=== PATIENT | female | born 1950 | race Caucasian/White ===

== ENCOUNTER 2019-10-16 15:58 | Outpatient (CLI) | payer MEDICARE, OTHER, SELFPAY ==
--- NOTE | ~2019-10-16 | MR_ITS ---
EXAMINATION: MR cervical spine wo/w con EXAM DATE: 10/16/2019 17:52 INDICATION: Metastatic renal cell cancer, right-sided neck and back pain. TECHNIQUE: Multi-sequential, multiplanar MR images of the cervical spine were obtained without contra st. Axial T2, axial T2 MERGE sequence. Sagittal T1, T2, T2 fat saturation images also obtained. Axi al T1 weighted sequence. Patient was then injected with 19 mL Multihance intravenous contrast and re imaged. Postcontrast axial and sagittal T1-weighted fat saturation sequences were obtained. There i s no prior study for comparison. FINDINGS: There are no suspicious marrow signal abnormalities. There are no areas of abnormal enhanc ement on the post contrast images. The vertebral bodies are aligned in the AP dimension. There is mod erate disc disease from C3 through C7. The spinal cord signal intensity and intrinsic morphology is n ormal. Cervicomedullary junction is normal in appearance. Paraspinal soft tissue is unremarkable. Level by level evaluation: C2-C3: Disc does not extend beyond the endplate margin. Uncovertebral joint arthropathy: None. Facet joint arthropathy: Moderate right, mild left. Neural foraminal stenosis: No stenosis. Central canal stenosis: No stenosis. C3-C4: There is a minimal diffuse disc bulge. Uncovertebral joint arthropathy: Mild to moderate left, mild right. Facet joint arthropathy: Severe right, moderate left. Neural foraminal stenosis: Mild bilateral. Central canal stenosis: No stenosis. C4-C5: There is a mild diffuse disc bulge. Uncovertebral joint arthropathy: Moderate bilateral. Facet joint arthropathy: Moderate to severe left, moderate right. Neural foraminal stenosis: Moderate left, mild right. Central canal stenosis: Mild. C5-C6: There is a mild diffuse disc bulge. Uncovertebral joint arthropathy: Severe right, moderate left. Facet joint arthropathy: Moderate bilateral. Neural foraminal stenosis: Mild to moderate bilateral. Central canal stenosis: Mild. C6-C7: There is a mild diffuse disc bulge. Uncovertebral joint arthropathy: Mild. Facet joint arthropathy: Mild to moderate. Neural foraminal stenosis: Mild to moderate bilateral. Central canal stenosis: Mild. C7-T1: Disc does not extend beyond the endplate margin. Uncovertebral joint arthropathy: Mild. Facet joint arthropathy: Mild to moderate. Neural foraminal stenosis: No stenosis. Central canal stenosis: No stenosis. IMPRESSION: 1. Moderate cervical spondylosis. 2. No evidence of cervical metastatic disease. Reviewed, dictated and finalized at location B.
--- NOTE | ~2019-10-16 | MR_ITS ---
EXAMINATION: MR thoracic spine wo/w con EXAM DATE: 10/16/2019 18:00 INDICATION: Metastatic renal cell cancer to bone. Right-sided back pain. TECHNIQUE: Multi-sequential, multiplanar MR images of the thoracic spine were obtained without contra st. Sagittal T1, T2, T2 fat saturation, axial T2 weighted images reviewed. Axial T1 weighted sequenc e. Patient was then injected with 19 mL Multihance intravenous contrast and reimaged. Postcontrast axial and sagittal T1-weighted fat saturation sequences were obtained. There are no prior studies for comparison. FINDINGS: Thoracolumbar fusion hardware. There are no suspicious marrow signal abnormalities. The laya tebral bodies are aligned in the AP dimension. Mild diffuse thoracic facet arthropathy and disc disea se. The thoracic central canal and neural foramen are patent. The spinal cord signal intensity and in trinsic morphology is normal. Paraspinal soft tissue is unremarkable. IMPRESSION: 1. No evidence of thoracic spine metastatic disease. 2. Mild spondylosis. Thoracolumbar hardware. Reviewed, dictated and finalized at location B.
[2019-10-16 16:27] LABS: Estimated Glomerular Filt Rate 41
== END 2019-10-16 15:59 | disposition home or self-care (01) ==
LOC: ANHIMG 16:04
PROVIDERS: PCP Family Medicine
DX: C79.51 Secondary malignant neoplasm of bone (principal); C64.9 Malignant neoplasm of unspecified kidney, except renal pelvis; M47.894 Other spondylosis, thoracic region; M47.892 Other spondylosis, cervical region
CPT/HCPCS: 36415; 72156; 72157; A9577

== ENCOUNTER → 2020-02-22 13:08 | Outpatient (CLI) | payer MEDICARE, OTHER, SELFPAY ==
--- NOTE | ~2020-02-22 | MM_ITS ---
EXAMINATION: MM screening [facility] BI w jeronimo HISTORY: Screening TECHNIQUE: Craniocaudal and mediolateral oblique 3-D tomosynthesis images were obtained and synthetic 2-D images were generated. CAD analysis was submitted and interpreted. COMPARISON: Comparison to multiple prior studies sequentially, with oldest reviewed study dated 09/2014. BREAST PARENCHYMAL COMPOSITION: The breasts are heterogeneously dense, which may obscure small masses . FINDINGS: Benign-appearing bilateral breast masses are stable or diminished in size compared with gen or studies. These were previously characterized as cysts by ultrasound. There is no evidence of suspi cious mass, calcification, or architectural distortion to suggest malignancy in either breast. There has been no suspicious interval change. IMPRESSION: 1. No mammographic evidence of malignancy. 2. Recommend routine screening mammography in one year. BI-RADS Category 2: Benign finding(s). Reviewed, dictated and finalized at location A. INE ERECTOR
== END ==
PROVIDERS: PCP Family Medicine; Visit Provider Family Medicine
DX: Z12.31 Encounter for screening mammogram for malignant neoplasm of breast (principal)
CPT/HCPCS: 77063; 77067

== ENCOUNTER 2020-06-19 08:48 | Emergency (ER) | payer MEDICARE, OTHER, SELFPAY ==
--- NOTE | ~2020-06-19 | CT_ITS ---
EXAMINATION: CT thoracic lumbar wo con EXAM DATE: 06/19/2020 09:45 INDICATION: Thoracolumbar pain, metastatic renal cell cancer. TECHNIQUE: Spiral CT thoracolumbar spine was performed without contrast. Axial, coronal and sagittal images of the thoracic spine were reviewed. Axial, coronal and sagittal images of the lumbar spine we re reviewed. The dose-length product (DLP) for this examination was 1995.55 mGy-cm. The exposure was tailored according to patient size (auto mA exposure control), and iterative reconstruction (ASIR) w as used as additional dose reduction technique. Correlation made to prior thoracic MRI examination , CT abdomen pelvis 07/28/2017 FINDINGS: There is a right-sided portacatheter. There is interval development of right upper lobe wed ge-shaped density measuring 4.0 cm, pneumonia versus metastasis. There are right middle lobe nodule m easuring 1.2 cm, right lower lobe nodule measuring 1.3 cm. There are scattered other pulmonary nodule s 5 mm or less. Likely metastatic disease. Scattered lung pneumatoceles. Thoracolumbar fusion T11-L4. L2 corpectomy with interbody device maintaining height, no evidence of subsidence. The posterior ped icular screws appear well seated, no lucency surrounding them. Mildly diffusely heterogeneous bone ma rrow density without cortical erosion or definite focal metastatic lesion identified. No evidence of mediastinal or hilar metastatic lymphadenopathy. Thoracic spine demonstrates mild to moderate diffuse disc disease. The vertebral body heights are jose ntained. No thoracic central canal stenosis. Up to mild to moderate neural foraminal stenosis. There is mild diffuse thoracic facet arthropathy. There are no acute fractures identified. Paraspinal sof t tissue unremarkable. There is small sliding gastroesophageal hiatal hernia. Lumbar spine demonstrates moderate disc disease L3-S1. The lumbar vertebral body heights are maintain ed. No spondylolysis or fracture. Sacroiliac joints are intact. Mild to moderate central canal stenos is L3-4 and L4-5. Moderate bilateral neural foraminal stenosis L5-S1 and on the right at L4-5, less a t the other lumbar levels. No acute lumbar fracture. There is rectosigmoid anastomosis site. There i s a left adrenal gland nodule measuring 1.7 cm, which was not present on CT scan abdomen. This may be metastatic disease. Splenule. IMPRESSION: 1. Right upper lobe 4 cm wedge-shaped pleural-based opacity, pneumonia versus cancer. 2. Interval development of pulmonary nodules and left adrenal nodule, likely metastatic disease. 3. L2 surgical changes including corpectomy, laminectomies, and posterior fusion from T11-L4 intact. 4. Moderate lower lumbar spondylosis, less other regions of thoracolumbar spine. Reviewed, dictated and finalized at location A. DRIVER IMPRESSION: 1. Right upper lobe 4 cm wedge-shaped pleural-based opacity, pneumonia versus cancer. 2. Interval development of pulmonary nodules and left adrenal nodule, likely m etastatic disease. 3. L2 surgical changes including corpectomy, laminectomies, and posterior fusi on from T11-L4 intact. 4. Moderate lower lumbar spondylosis, less other regions of thoracolumbar spin e.
--- NOTE | ~2020-06-19 | CT_ITS ---
EXAMINATION: CT chest abdomen pelvis wo con EXAM DATE: 06/19/2020 11:35 INDICATION: Thoracolumbar spine abnormality, metastatic disease. Renal cell cancer. TECHNIQUE: Spiral CT of the chest, abdomen and pelvis was performed without contrast. Axial, mathis l and sagittal images were reviewed. Coronal maximum intensity pixel images of chest reviewed. The dose-length product (DLP) for this examination was 679.88 mGy-cm. The exposure was tailored accordin g to patient size (auto mA exposure control), and iterative reconstruction (ASIR) was used as additio nal dose reduction technique. Comparison is made to prior examination from abdomen pelvis CT 07/26/2018 . FINDINGS: CHEST: There is a wedge-shaped right upper lobe pleural-based opacity, cancer or pneumonia. Similar appearing but smaller 2.5 cm region in the right middle lobe. There are other pulmonary nodules which are suspicious for metastatic disease. A right lower lobe nodule which was previously imaged measure s 7 mm on 07/26/2018, now measures 12 mm. Several smaller basilar opacities are new compared to that st udy. Small cystic lung lesions with thin ramirez, pneumatoceles. There is mild emphysema. There are no pleural or pericardial effusions. Tracheobronchial tree is patent. There is no mediastinal, hilar or axillary lymphadenopathy. There is no pneumothorax. Heart normal in size. There is mild coron mary arterial calcification, arterial sclerosis. ABDOMEN PELVIS: Development of bulbous masslike opacity in the pancreatic tail measuring about 2.6 cm . Development of left adrenal nodule measuring 1.6 cm. Probably metastatic disease. Can't exclude greenberg creatic primary cancer. The liver and spleen are unremarkable. There are gallstones within an otherwise unremarkable gallbla dder. No evidence of obstructive biliary disease. Status post left nephrectomy. No right-sided neph rolithiasis or hydronephrosis. The uterus is not identified and has likely been surgically resected. The bladder is unremarkable. There is no retroperitoneal or pelvic lymphadenopathy. There is ante rior abdominal wall mesh. Possible identification of an unremarkable appendix. No pericecal inflammation. There is mild scatter ed colonic diverticulosis. There is no adjacent inflammatory change to suggest diverticulitis. Ther e is small sliding gastroesophageal hiatal hernia. There is expected amount of colonic stool. No f ree intraperitoneal gas. Mild diffusely heterogeneous bone marrow density without focal cortical dest ruction. Thoracolumbar fusion, L2 corpectomy and laminectomies as detailed on CT performed prior to t his one. IMPRESSION: 1. Basilar pulmonary nodules suspicious for metastatic disease. 2. Larger right middle lobe, right upper lobe opacities, could be infection or metastatic. 3. Mild emphysema. 4. Development of left adrenal nodule likely metastatic. 5. Development of masslike pancreatic tail region, metastatic versus primary pancreatic cancer. 6. Cholelithiasis. 7. Small hiatal hernia. 8. Scattered colonic diverticulosis. 9. Surgical changes including left nephrectomy, L2 corpectomy, thoracolumbar fusion, anterior abdomi nal wall mesh, sigmoid resection. Reviewed, dictated and finalized at location A. RITY ALARM TECHNICIAN IMPRESSION: 1. Basilar pulmonary nodules suspicious for metastatic disease. 2. Larger right middle lobe, right upper lobe opacities, could be infection or metastatic. 3. Mild emphysema. 4. Development of left adrenal nodule likely metastatic. 5. Development of masslike pancreatic tail region, metastatic versus primary p ancreatic cancer. 6. Cholelithiasis. 7. Small hiatal hernia. 8. Scattered colonic diverticulosis. 9. Surgical changes including left nephrectomy, L2
[2020-06-19 08:49] VITALS: BP 130/78; PULSE 110; RESP 16; TEMP 36.3; O2SAT 100
--- NOTE | 2020-06-19 09:35 | PC.NURSE ---
Pt to CT scan via stretcher.
[2020-06-19] MEDS: SODIUM CHLORIDE 0.9% IV 500 ML 999 ML IV CONT (10:02)
[2020-06-19 10:16] LABS: Basophils Absolute Auto 0.1 K/mm3 (0.0-0.1); Basophils Percent Auto 0.7 % (0.2-1.2); Eosinophils Percent Auto 0.2 % (0-4.4); Hemoglobin 11.2 g/dL (12.0-15.0); Lymphocytes Absolute Auto 1.31 K/mm3 (0.9-3.2); Lymphocytes Percent Auto 10.2 % (18.3-44.2); Mean Corpuscular HGB Conc 36.1 g/dl (32-36); Mean Corpuscular Volume 99.7 fl (80-100); Mean Platelet Volume 8.9 fl (7.4-10.4); Monocytes Absolute Auto 0.6 K/mm3 (0.1-0.6); Monocytes Percent Auto 4.7 % (2.6-8.5); Neutrophils Percent Auto 77.2 % (45.5-73.1); Nucleated Red Blood Cells Perc 0.3 % (0.0-0.2); Platelet Count Result 131 k/mm3 (150-375); Red Blood Count 3.11 M/mm3 (4.2-5.4); Red Cell Distribution Width 18.9 % (11.5-14.5); White Blood Count 12.9 K/mm3 (4.5-10.0)
[2020-06-19 10:19] LABS: Add Urine Microscopic? YES; Appearance Urine Clear (Clear); Bilirubin Urine Negative (Negative); Blood Urine Negative (Negative); Color Urine Yellow (Yellow); Glucose Urine UA Negative (Negative); Ketones Urine Trace mg/dL (Negative); Leukocyte Esterase Ur Negative LEU/UL (Negative); Nitrate Urine Negative (Negative); Protein Urine Negative (Negative); RBC Urine 0-2 /hpf (0-2); Specific Grav Ur 1.018 (1.001-1.035); Squamous Epithelial Cell Urine Rare /hpf (Few); WBC Urine 0-3 /hpf
[2020-06-19 10:27] LABS: Alanine Aminotransferase 24 U/L (4-35); Albumin Level 3.5 g/dL (3.5-5.1); Alkaline Phosphatase 72 U/L (38-126); Anion Gap 5 mmol/L (8-16); Aspartate Amino Transferase 25 U/L (14-36); Bilirubin,Total 2.2 mg/dL (0.2-1.3); Blood Urea Nitrogen 28 mg/dL (7-17); Calcium 9.2 mg/dL (8.4-10.2); Carbon Dioxide 30 mmol/L (22-30); Chloride 98 mmol/L (98-107); Estimated CRCL calculation 43 ml/min; Estimated Glomerular Filt Rate 45; Glucose 123 mg/dL (65-105); Potassium 3.1 mmol/L (3.4-5.0); Sodium 133 mmol/L (137-145)
[2020-06-19 10:56] LABS: Lipase 101 U/L (23-300)
[2020-06-19 11:30] VITALS: BP 110/55; PULSE 99; RESP 20; TEMP 36.3; O2SAT 96
--- NOTE | 2020-06-19 11:42 | ED.GENADULT ---
HPI - General Adult General Chief complaint: Back Pain/Injury Stated complaint: back pain Time Seen by Provider: 06/19/20 09:10 Source: patient, family and old records reviewed Mode of arrival: ambulatory Limitations: no limitations History of Present Illness HPI narrative: Patient is a 70-year-old female who presents for evaluation of low back pain radiating down the right leg with numbness in the right extremity patient denies injury or trauma patient notes she has been having spasming in the back as well patient notes history of metastatic cancer and is followed [facility] by Dr. BLAS. Patient's primary was kidney in nature. Patient denies any vomiting diarrhea patient denies other injury or trauma or illness. Patient has been unable to take her chemotherapy of late secondary to toleration. Patient has been taking oral narcotic with some relief. Patient denies any loss of function in the extremity Related Data Home Medications Medication Instructions Recorded Confirmed Bifidobacterium infantis 4 mg 4 mg PO DAILY 04/28/19 capsule ascorbic acid (vitamin C) 500 mg 500 mg PO DAILY 04/28/19 tablet levothyroxine 100 mcg tablet 125 mcg PO DAILY tablet 04/28/19 xbqycayo-qdg-uweiv ac 400 tablet PO 04/28/19 mcg-calcium carb 500 mg-vit K1 20 mcg tablet prochlorperazine maleate 10 mg 10 mg PO .COMPLEX PRN tablet 04/28/19 tablet tramadol 50 mg tablet 50 mg PO Q6H PRN 04/28/19 Allergies Allergy/AdvReac Type Severity Reaction Status Date / Time codeine Allergy Unknown N/V Verified 06/19/20 08:55 erythromycin base Allergy Unknown N/V, RASH Verified 06/19/20 08:55 Sulfa (Sulfonamide Allergy Unknown Unknown Verified 06/19/20 08:55 Antibiotics) codeine Allergy Unknown Unknown Uncoded 06/14/19 09:59 erythromycin base Allergy Unknown Unknown Uncoded 06/14/19 09:59 Sulfa (Sulfonamide Allergy Unknown Unknown Uncoded 06/14/19 09:59 Antibiotics) Review of Systems Review of Systems: All systems reviewed & are unremarkable except as noted in HPI and below PMFSH Past Medical History Medical History Depression H/O deep venous thrombosis Post-menopause Family History Family History (Updated 05/31/18 @ 07:40 by DOCTOR UNKNOWN) Father Family history of chronic obstructive pulmonary disease Family history of emphysema Sibling Patient's brother is in good health Mother Family history of malignant neoplasm of breast in first degree relative Other Family history of cardiovascular disease Social History Social History Smoking status: Never smoker Second hand tobacco smoke exposure: No Alcohol intake: never Substance use: never Substance use type: does not use Gender identity (if verbalized by the patient): Female Exam Narrative: Exam Narrative: GENERAL: Well-appearing, obese, and in no acute distress. HEAD: Normocephalic, atraumatic. EYES: PERRLA and EOMI. ENT: Nares clear, no rhinorrhea or epistaxis. Mucous membranes moist. CHEST: Clear to auscultation. No respiratory distress. No wheezes rales or rhonchi HEART: Regular rate and rhythm. No murmur heard. Normal peripheral pulses. ABDOMEN: Soft, nontender, nondistended EXTREMITIES: Normal range of motion. No edema. Midthoracic back pain SKIN: Warm, dry, no rash. NEURO: No focal deficits. Alert and oriented x3. Cranial nerves II through XII grossly intact. Motor and sensory intact and symmetrical in the extremities. PSYCH: Normal mood and affect. Course Course Emergency Course: Patient evaluated in the emergency department for her back pain findings were discussed with her oncologist who feels the patient can be managed with medications and the patient can follow with plan visit in 2 weeks. No further recommendations at this time. ABCs and vital signs intact and stable. Patient and her agree with
[2020-06-19 13:02] VITALS: BP 100/54; PULSE 101; RESP 22; TEMP 36.6; O2SAT 95
[2020-06-19] MEDS: LIDOCAINE 5% PATCH 1 PATCH TRANSDERM (13:39)
[2020-06-19 14:17] VITALS: BP 114/57; PULSE 99; RESP 18; TEMP 36.7; O2SAT 98
== END 2020-06-19 14:17 | disposition home or self-care (01) ==
PROVIDERS: Emergency Medicine Emergency Medical Services; Emergency Provider Emergency Medicine; PCP Family Medicine
DX: M54.5 Low back pain (principal); C64.2 Malignant neoplasm of left kidney, except renal pelvis; R91.8 Other nonspecific abnormal finding of lung field; M47.816 Spondylosis without myelopathy or radiculopathy, lumbar region; E27.9 Disorder of adrenal gland, unspecified; J43.9 Emphysema, unspecified; K80.20 Calculus of gallbladder without cholecystitis without obstruction; K44.9 Diaphragmatic hernia without obstruction or gangrene; K57.90 Diverticulosis of intestine, part unspecified, without perforation or abscess without bleeding; Z90.5 Acquired absence of kidney; Z90.49 Acquired absence of other specified parts of digestive tract; Z98.1 Arthrodesis status; K86.9 Disease of pancreas, unspecified
CPT/HCPCS: 36415; 51701; 71250; 72128; 72131; 74176; 80053; 81001; 83690; 85025; 96365; 99284; A9270; J0131; J7040

== ENCOUNTER 2020-10-25 10:30 | Inpatient (IN) | payer MEDICARE, OTHER, SELFPAY ==
[2020-10-25] VITALS (15 sets, daily range): BP systolic 68–162; BP diastolic 34–113; PULSE 96–104; RESP 20–27; TEMP 36.9–38.3; O2SAT 90–100; BMI 42.6
--- NOTE | ~2020-10-25 | US_ITS ---
EXAMINATION: US renal BI DATE: 10/25/2020 16:50 INDICATION: Decreased kidney function. TECHNIQUE: Multiple ultrasound grayscale images of the kidneys were obtained. COMPARISON: CT 06/19/2020 FINDINGS: The right kidney measures 13.8 x 6.8 x 5.7 cm. The left kidney is absent The right kidney demonstrate s normal parenchymal echogenicity. There is no hydronephrosis. The bladder is normal. IMPRESSION: 1. Normal right kidney. Absent left kidney. Reviewed, dictated and finalized at location A.
--- NOTE | ~2020-10-25 | XR_ITS ---
XR chest 1V portable DATE: 10/31/2020 05:50 INDICATION: Respiratory distress, increased oxygen requirements TECHNIQUE: Portable AP chest on 10/31/2020 at 0516 hours COMPARISON: 07/26 portable AP chest at 1104 hours FINDINGS: There is interval pulmonary vascular congestion and redistribution and Kellen B-lines and b ilateral pulmonary infiltrates predominating in the central and lower lung zones, suggesting congesti ve changes and pulmonary edema 07/26/2018. Right internal jugular Port-A-Cath catheter tip is situated over the upper right atrium. No pleural effusion or pneumothorax is evident. Pedicle screws and rods are noted at T11 extending in the lumbar area. IMPRESSION: Congestive changes and bilateral infiltrates suggesting pulmonary edema Reviewed, dictated and finalized at location A. IMPRESSION: Congestive changes and bilateral infiltrates suggesting pulmonary e rodrigo
--- NOTE | ~2020-10-25 | XR_ITS ---
EXAMINATION: XR lumbar spine 2-3V DATE: 10/27/2020 11:35 INDICATION: Low back pain. TECHNIQUE: 3 views of lumbar spine were obtained. COMPARISON: CT abdomen and pelvis 06/19/2020 FINDINGS: There is 5 degrees dextrocurvature of lumbar spine. There are changes of L2 corpectomy with interbody device. There are changes of posterior fusion procedure from T11 to L4 with pedicle screws . Vertebral body heights are normal. There is moderately decreased disc height at L3-L4 and severely decreased disc height at L4-L5 and L5-S1. There are surgical clips from ventral hernia repair. There is a left hip bipolar hemiarthroplasty. IMPRESSION: 1. Severe lumbar spondylosis. 2. L2 corpectomy with interbody device. 3. Posterior fusion procedure from T11 to L4. Reviewed, dictated and finalized at location A.
--- NOTE | ~2020-10-25 | US_ITS ---
EXAMINATION: US venous doppler LE EXAM DATE: 10/25/2020 16:48 INDICATION: bilateral lower extremity swelling. TECHNIQUE: Multiple grayscale, color flow and Doppler images of the lower extremity deep venous syste ms bilaterally were obtained and reviewed. Comparison is made to prior examination from 01/13/2018. FINDINGS: Right side: The right common femoral, femoral and profunda veins demonstrate normal color flow, respi ratory variation, augmentation and compressibility. Compressibility, color flow confirmed within the right popliteal, posterior tibial, peroneal, and greater saphenous veins. Resolution of previously seen posterior tibial DVT. Left side: The left common femoral, femoral and profunda veins demonstrate normal color flow, respira tory variation, augmentation and compressibility. Compressibility, color flow confirmed within the l eft popliteal, posterior tibial, peroneal, and greater saphenous veins. IMPRESSION: 1. No lower extremity deep venous thrombosis bilaterally. Reviewed, dictated and finalized at location B.
--- NOTE | ~2020-10-25 | CT_ITS ---
EXAMINATION: CT brain wo con DATE: 10/25/2020 12:25 INDICATION: Confusion, trembling. Altered mental state. Weakness. TECHNIQUE: Computed tomography (CT) of the head was performed without intravenous contrast. The mA wa s adjusted according to patient size. Iterative reconstruction technique was employed. Exam dose: 60 5.33 mGy-cm total exam DLP. COMPARISON: 07/27/2018 CT head FINDINGS: Examination is limited by motion artifact. Intracranial cerebral atherosclerosis is noted. There is nonspecific diminished attenuation of the ce rebral white matter, likely due to chronic small vessel ischemic changes. No intracranial mass lesion or hemorrhage or cerebrovascular accident is evident. No midline shift or mass effect. No subdural or epidural hematoma. No fracture or bone destruction of the cranial vault. Included paranasal sinuses are unremarkable. Left mastoid air cells are normally developed and aerate d. There is limited development and aeration of the right mastoid air cells. IMPRESSION: Cerebral atherosclerosis and chronic small vessel ischemic changes of cerebral white mat ter No acute intracranial finding Reviewed, dictated and finalized at Location A. Reviewed, dictated and finalized at location A. IMPRESSION: Cerebral atherosclerosis and chronic small vessel ischemic changes of cerebral white matter No acute intracranial finding
--- NOTE | ~2020-10-25 | XR_ITS ---
EXAMINATION: XR hip LT min 2V DATE: 10/27/2020 11:34 INDICATION: Left hip injury. TECHNIQUE: 2 views of left hip were obtained. COMPARISON: None. FINDINGS: There is a bipolar left hip hemiarthroplasty in near-anatomic alignment. No fracture. There is mild left hip osteoarthritis. IMPRESSION: 1. Bipolar left hip hemiarthroplasty in near-anatomic alignment. Reviewed, dictated and finalized at location A.
--- NOTE | 2020-10-25 10:40 | ECG_ITS ---
Measurements Intervals [place] Rate: 96 P: 54 [place]: 183 QRS: -9 QRSD: 108 T: 53 QT: 385 QTc: 486 Interpretive Statements SINUS RHYTHM INCOMPLETE RIGHT BUNDLE BRANCH BLOCK DELAYED PRECORDIAL R/S TRANSITION LOW QRS VOLTAGE IN PRECORDIAL LEADS BORDERLINE ST-T WAVE ABNORMALITY- DIFFUSE LEADS BASELINE ARTIFACT- I, II, AVR, AVF, V4 BORDERLINE ECG Electronically Signed On 10-25-2020 11:27:48 CDT by Noah Shelley D.O.
[2020-10-25 11:29] LABS: Basophils Absolute Auto 0.1 K/mm3 (0.0-0.1); Eosinophils Absolute Auto 0.7 K/mm3 (0-0.3); Eosinophils Percent Auto 7.5 % (0-4.4); Hematocrit 26.1 % (37.0-47.0); Hemoglobin 8.8 g/dL (12.0-15.0); Immature Granulocyte Absolute 0.35 K/mm3 (0.00-0.031); Lymphocytes Absolute Auto 1.19 K/mm3 (0.9-3.2); Lymphocytes Percent Auto 13.5 % (18.3-44.2); Mean Corpuscular HGB Conc 33.7 g/dl (32-36); Mean Corpuscular Hemoglobin 30.3 pg (26-34); Mean Platelet Volume 9.2 fl (7.4-10.4); Monocytes Absolute Auto 0.9 K/mm3 (0.1-0.6); Monocytes Percent Auto 10.3 % (2.6-8.5); Neutrophils Absolute Auto 5.6 K/mm3 (1.3-6.7); Neutrophils Percent Auto 63.7 % (45.5-73.1); Platelet Count Result 353 k/mm3 (150-375); White Blood Count 8.8 K/mm3 (4.5-10.0)
[2020-10-25 11:34] LABS: INR 1.9; Prothrombin Time 21.3 Seconds (11.1-14.7)
[2020-10-25 11:48] LABS: Alanine Aminotransferase 15 U/L (4-35); Albumin Level 2.8 g/dL (3.5-5.1); Alkaline Phosphatase 132 U/L (38-126); Anion Gap 12 mmol/L (8-16); Aspartate Amino Transferase 65 U/L (14-36); Bilirubin,Total 1.5 mg/dL (0.2-1.3); Blood Urea Nitrogen 17 mg/dL (7-17); Calcium 7.5 mg/dL (8.4-10.2); Carbon Dioxide 24 mmol/L (22-30); Chloride 73 mmol/L (98-107); Estimated CRCL calculation 22 ml/min; Estimated Glomerular Filt Rate 19; Glucose 107 mg/dL (65-105); Potassium 2.4 mmol/L (3.4-5.0); Sodium 109 mmol/L (137-145)
[2020-10-25 12:44] LABS: Add Urine Microscopic? YES; Appearance Urine Cloudy (Clear); Bilirubin Urine Negative (Negative); Blood Urine 3+ (Negative); Color Urine Amber (Yellow); Glucose Urine UA Negative (Negative); Ketones Urine Negative (Negative); Leukocyte Esterase Ur 3+ LEU/UL (Negative); Mucus Urine Rare /lpf; Nitrate Urine Negative (Negative); Protein Urine 1+ mg/dL (Negative); RBC Urine >75 /hpf (0-2); Specific Grav Ur 1.017 (1.001-1.035); WBC Urine >75 /hpf
[2020-10-25] MEDS: SODIUM CHLORIDE 0.9% IV 1,000 ML 999 ML IV CONT (12:51)
--- NOTE | 2020-10-25 13:10 | ED.WEAKNESS ---
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 Reports she woke up today and is profoundly weak and cannot get herself to stand up. Patient recently underwent left hip replacement at [facility] due to having a tumor in this location. There is concern of a fracture and she had hip replacement. Patient sees Dr. Marshall for her cancer care. She recently failed therapy with pazopanib, and she was recently started on tivozanib yesterday. She also receives Xgeva for her skeletal metastases. Related Data Home Medications Medication Instructions Recorded Confirmed levothyroxine 100 mcg tablet 137 mcg PO DAILY tablet 04/28/19 10/25/20 acetaminophen 650 mg PO Q6H PRN 10/25/20 10/25/20 albuterol sulfate [ProAir HFA] 1 puff INHALATION Q6H PRN 10/25/20 10/25/20 apixaban [Eliquis] 2.5 mg PO BID 10/25/20 10/25/20 bisacodyl 10 mg RECTAL DAILY PRN 10/25/20 10/25/20 bupropion HCl 75 mg PO BID 10/25/20 10/25/20 chlorthalidone 25 mg PO DAILY 10/25/20 10/25/20 cholecalciferol (vitamin D3) 125 mcg PO DAILY 10/25/20 10/25/20 gabapentin 600 mg PO HS 10/25/20 10/25/20 hydroxyzine HCl 50 mg PO TID PRN 10/25/20 10/25/20 methocarbamol 750 mg PO TID 10/25/20 10/25/20 pantoprazole 40 mg PO QAM 10/25/20 10/25/20 potassium chloride 20 meq PO BID 10/25/20 10/25/20 sodium phosphates [Fleet Enema] 118 ml RECTAL ONCE 10/25/20 10/25/20 tramadol 25 mg PO Q6H PRN 10/25/20 10/25/20 Allergies Allergy/AdvReac Type Severity Reaction Status Date / Time codeine Allergy Unknown N/V Verified 10/25/20 13:23 erythromycin base Allergy Unknown N/V, RASH Verified 10/25/20 13:23 Sulfa (Sulfonamide Allergy Unknown Unknown Verified 10/25/20 13:23 Antibiotics) codeine Allergy Unknown Unknown Uncoded 10/25/20 13:23 erythromycin base Allergy Unknown Unknown Uncoded 10/25/20 13:23 Sulfa (Sulfonamide Allergy Unknown Unknown Uncoded 10/25/20 13:23 Antibiotics) Review of Systems Review of Systems: All systems reviewed & are unremarkable except as noted in HPI and below Constitutional: Constitutional: Denies chills, Reports fatigue, Denies fever(s) and Reports weakness ENT: Denies nasal congestion and Denies sore throat Cardiovascular: Cardiovascular: Denies chest pain, Denies rapid heart rate and Denies radiating jaw, neck or arm pain Respiratory: Respiratory: Denies cough and Denies dyspnea Gastrointestinal: Gastrointestinal: Denies abdominal pain, Denies diarrhea, Denies nausea and Denies vomiting Genitourinary: Genitourinary: Denies nocturia, Denies dysuria and Denies flank pain Musculoskeletal: Musculoskeletal: Denies joint swelling Comments: Lower extremity edema Integumentary/Breasts: Comments: Healing wound left hip with reported secondary infection [facility] Past Medical History Medical History (Updated 10/25/20 @ 15:03 by Nichelle Hennessy MD) Acute kidney failure, unspecified Anemia Depression H/O deep venous thrombosis Hyponatremia Metastatic renal cell carcinoma Post-menopause Pyuria Surgical History Surgical History (Updated 10/25/20 @ 18:44 by Kolby Butterfield MD) History of left hip replacement Family History Family History Father Family history of chronic obstructive pulmonary disease Family history of emphysema Sibling Patient's brother is in good health Mother Family history of malignant neoplasm of breast in first degree relative Other Family history of cardiovascular disease Social History Social History Smoking status: Never smoker Second hand tobacco smoke exposure: No Alcohol intake: never Substance use: never Substance use type: does not use G
--- NOTE | 2020-10-25 13:22 | PC.NURSE ---
Nurse at [facility] called and updated on patients admission status.
--- NOTE | 2020-10-25 13:32 | PC.NURSE ---
Attempted to call Osteen x3 to update nurse on patient status but was unable to get ahold of her.
--- NOTE | 2020-10-25 13:49 | PM.CNNEP ---
Assessment and Plan Assessment and plan (1) Hyponatremia: Code(s): E87.1 - Hypo-osmolality and hyponatremia Status: Acute Assessment and Plan: the patient has hyponatremia. I do not think this is acute. Etiology is probably multifactorial. she has cancer She has been on Zoloft. She is on chlorthalidone she has not been eating food. She has been getting tramadol. There are other causes as well such as pulmonary disease brain disease hypothyroidism and adrenal insufficiency. The head CT is negative. It sounds like this has been building up over the last few days. She does have significant symptoms from this with her change in cognition and asterixis. I believe she should get some hypertonic saline. However she has received 2-3 L of isotonic saline since she was admitted. So will check another sodium stat. I talked with the ICU nurse to do this is soon she gets up to the floor. If the sodium has not changed we will use hypertonic saline. If the sodium has climbed by more than 4 then I will hold off on hypertonic but then continue isotonic saline at a lower rate. We will follow the sodium levels closely so that she does not have an over-correction. Because she was on chlorthalidone and Zoloft and we will be stopping these and also because she is getting IV fluid it is not predictable how quickly her sodium is going to correct. So will follow this level closely. I asked nursing to call me as soon as the sodium level comes back. (2) Hypokalemia: Code(s): E87.6 - Hypokalemia Status: Acute Assessment and Plan: She received potassium chloride in the ER. (3) Acute kidney failure, unspecified: Code(s): N17.9 - Acute kidney failure, unspecified Status: Acute Assessment and Plan: Her creatinine baseline is 1.2. Now it is up to 2.5. I suspect she is dehydrated. Will check urine electrolytes and eosinophils. (4) Pyuria: Code(s): R82.81 - Pyuria Status: Acute Assessment and Plan: She has pyuria. Will check urine culture. She is afebrile and her white count is okay. She has no dysuria. (5) Metastatic renal cell carcinoma: Code(s): C64.9 - Malignant neoplasm of unspecified kidney, except renal pelvis Status: Acute Assessment and Plan: Dr. Garcia follows this as an outpatient (6) Essential hypertension: Code(s): I10 - Essential (primary) hypertension Status: Acute (7) Depression: Code(s): F32.9 - Major depressive disorder, single episode, unspecified Status: Acute (8) PAF (paroxysmal atrial fibrillation): Code(s): I48.0 - Paroxysmal atrial fibrillation Status: Acute (9) Hemolytic anemia: Code(s): D58.9 - Hereditary hemolytic anemia, unspecified Status: Acute History of Present Illness Reason for Consult Consult date: 10/25/20 Chief Complaint Chief complaint: hyponatremia/hypokalemial/theo/uti History of Present Illness Narrative: Yaneth is an unfortunate 70-year-old lady who has multiple problems including renal cell carcinoma with metastases, depression, spinal surgery in the past, recent bipolar hip replacement on the left to treat a pathological fracture, depression, swelling, GERD, DVT in the past, sleep apnea, intermittent asthma, mild cognitive degeneration, paroxysmal atrial fibrillation. Patient recently had a pathological fracture of the left hip. She was taken to [facility] and had a bipolar hip replacement done so that she could maintain her weight-bearing status. She was discharged from the hospital To rehab for strengthening. She says that in the last couple weeks she has had progressive swelling and weakness. She has some trouble with cognition as well the said is worse than usual. She has not been eating or drinking very well. Her thinks she has not been drinking much fluid at all. however he
--- NOTE | 2020-10-25 14:15 | PC.NURSE ---
Pt taken to ICU with KCL and NS infusing
--- NOTE | 2020-10-25 14:30 | PM.IMHP ---
H&P: HPI History of Present Illness Date/Time: 10/25/20 14:00 Chief Complaint: Generalized weakness. 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 she remains confused at the time my evaluation is not able to provide a very good history. From what I can gather she recently had a left hip replacement at [facility] due to pathological fracture and she has been at a local rehab facility since. According to her she is just not been herself for the last month since her surgery with increasing weakness and periods of confusion. Today she was so weak that she could not even stand up on her own and she apparently fell down to her knees though did not injure herself. She was found to have an acute kidney injury with multiple electrolyte abnormalities including profound hyponatremia and hypokalemia as well as pyuria. She has since been admitted to the ICU and is receiving 3% saline at the time my evaluation. She is somnolent but will wake to name. She remains confused but is alert and oriented x2. She has no specific complaints currently and specifically denies headache, blurry vision, focal weakness, chest pain, shortness of breath, nausea, vomiting, diarrhea, and dysuria. Review of Systems Review of Systems: Narrative: 12 systems were reviewed but are limited as she is somewhat confused. She stated no to all questions asked for her with pertinent negatives as per HPI. [facility] Past Medical History Medical History (Updated 10/26/20 @ 00:19 by Yvonne Brewer PA-C) Anemia Deep venous thrombosis Depression Diverticulitis History perforated diverticulitis status post colectomy with colostomy and subsequent takedown. Hypothyroidism Metastatic renal cell carcinoma Clear cell renal cell carcinoma status post left radical nephrectomy in 2016. She is a patient of Dr. Johan Marshall and has recently been started on a new medication due to progression of disease on CT as of summer 2020. Mild dementia With short-term memory loss. Osteoarthritis Paroxysmal atrial fibrillation Single seizure In childhood. Surgical History Surgical History (Updated 10/26/20 @ 00:12 by Yvonne Brewer PA-C) History of hysterectomy for benign disease History of incisional hernia repair History of left hip replacement (~09/2020) History of left nephrectomy (~2015) History of partial colectomy Sigmoid colectomy with colostomy and subsequent takedown for perforated diverticulum. Family History Family History Father Family history of chronic obstructive pulmonary disease Family history of emphysema Sibling Patient's brother is in good health Mother Family history of malignant neoplasm of breast in first degree relative Other Family history of cardiovascular disease Social History Social History (Updated 10/26/20 @ 00:13 by Yvonne Brewer PA-C) Social History: Surrogate decision maker: Buster Osborne, . Code status: Full code. Smoking status: Never smoker Second hand tobacco smoke exposure: No Alcohol intake: never Substance use: never Substance use type: does not use Additional living arrangements comments: The patient lives with her in [place]. Additional occupation/education comments: Retired. Meds Home Medications and Allergies Home Medications Medication Instructions Recorded Confirmed Type levothyroxine 100 mcg tablet 137 mcg PO DAILY tablet 04/28/19 10/25/20 History fluti
--- NOTE | 2020-10-25 14:42 | WPDCNINT ---
Assessment and Plan Assessment and plan (1) Hyponatremia: Code(s): E87.1 - Hypo-osmolality and hyponatremia Status: Acute Assessment and Plan: severe acute hyponatremia which could be the cause of generalized weakness along with altered mental status. Multifactorial could be medications, decreased p.o. intake, underlying malignancy - patient was given 2-3 L of IV fluids - initial sodium level was 109, will repeat sodium levels now after the IV fluids - may require 3% saline - appreciate Nephrology evaluation recommendation - monitor serial sodium levels (2) Hypokalemia: Code(s): E87.6 - Hypokalemia Status: Acute Assessment and Plan: acute hyperkalemia - repleted in the ER, continue to follow potassium level and replace as needed (3) Acute kidney failure, unspecified: Code(s): N17.9 - Acute kidney failure, unspecified Status: Acute Assessment and Plan: acute kidney injury could be multifactorial hypotension, medication/chemotherapy related, decreased p.o. intake, UTI/infection/sepsis - patient received 2-3 L IV fluid bolus - will monitor urine output, renal function and electrolytes - will try and maintain mean arterial pressures greater than 65-70 per mmHg for adequate end organ perfusion (4) Pyuria: Code(s): R82.81 - Pyuria Status: Acute Assessment and Plan: urinalysis reflective of a UTI given pyuria - on ceftriaxone - cultures have been obtained (5) Metastatic renal cell carcinoma: Code(s): C64.9 - Malignant neoplasm of unspecified kidney, except renal pelvis Status: Acute Assessment and Plan: patient follows with , will consult (6) Cellulitis: Code(s): L03.90 - Cellulitis, unspecified Status: Acute Assessment and Plan: possible left lower extremity cellulitis - continue ceftriaxone and vancomycin (7) Anemia: Code(s): D64.9 - Anemia, unspecified Status: Acute Assessment and Plan: hemoglobin 8.8, - patient has history of anemia of chronic disease - hemoglobin is stable level (8) CKD (chronic kidney disease), stage III: Code(s): N18.3 - Chronic kidney disease, stage 3 (moderate) Status: Acute Assessment and Plan: patient has a history of chronic kidney disease stage 3 - continue to monitor urine output, electrolytes and renal function (9) PAF (paroxysmal atrial fibrillation): Code(s): I48.0 - Paroxysmal atrial fibrillation Status: Acute Assessment and Plan: history of proximal AFib, on Eliquis at home (10) DVT prophylaxis: Code(s): Z29.9 - Encounter for prophylactic measures, unspecified Status: Acute Assessment and Plan: heparin subcu Additional Plan discussed with patient in detail and explained to her condition and plan of care. I answered all questions. Patient stated she wants to get better and go home code status: Full code Critical care time spent: 46 minutes This dictation may have been done utilizing a voice recognition system. Attempts have been made to correct errors. However, there may be uncorrected grammatical, spelling, and recognition errors present. Due to a high probability of clinically significant, life threatening deterioration, the patient required my highest level of preparedness to intervene emergently and I personally spent this critical care time directly and personally managing the patient. This critical care time included obtaining a history; examining the patient; pulse oximetry; ordering and review of studies; arranging urgent treatment with development of a management plan; evaluation of patient's response to treatment; frequent reassessment; and discussions with other providers. It was exclusive of separately billable procedures and treating other patients and teaching time. Please see Assessment and Plan section and the rest of the note for further information
[2020-10-25 14:59] LABS: Creatine Kinase 576 U/L (30-135)
[2020-10-25 15:09] LABS: Sodium 110 mmol/L (137-145)
--- NOTE | 2020-10-25 15:23 | ADMGEN ---
This patient, Yaneth Osborne, was admitted to Intensive Care Unit-3. Patient/family oriented to hospital policies and general routines including ID bracelet, bed and alarms, visiting hours, pain management, procedures, bathroom and other care routines, personal items, smoking policy, room service/diet, and visiting hours. Information on how to activate the Rapid Response Team has been discussed. Patient/Family are encouraged to report perceived risks to care and to ask questions if they do not understand what they are told or what they should do.
[2020-10-25 15:27] LABS: Cortisol Random 1.95 ug/dL
[2020-10-25] MEDS: SODIUM CHLORIDE 3% 500 ML 110 ML IV CONT (16:12)
[2020-10-25] MEDS: CENTRAL LINE FLUSH 10 ML IV PUSH ×2 (16:17→20:12)
[2020-10-25] MEDS: HEPARIN SODIUM 5,000 UNITS/ML VIAL 5000 UNITS SUB-Q (20:13)
[2020-10-25 20:24] LABS: Lactic Acid Reflex 2.1 mmol/L (0.7-2.1)
[2020-10-25 20:37] LABS: Sodium 112 mmol/L (137-145)
[2020-10-25] MEDS: ACETAMINOPHEN 325 MG TABLET 650 MG PO (20:50)
[2020-10-25] MEDS: SODIUM CHLORIDE 0.9% IV 1,000 ML 125 ML IV CONT (21:12)
[2020-10-25] MEDS: SODIUM CHLORIDE 0.9% IV 500 ML IV CONT (21:12)
[2020-10-25 21:29] LABS: Magnesium 1.4 mg/dL (1.6-2.3); Potassium 2.8 mmol/L (3.4-5.0)
[2020-10-25] MEDS: MAGNESIUM SULF 2 GM/WATER 50ML 2 GM/50 ML BAG IVPB (23:01)
[2020-10-25 23:12] LABS: Reflex Lactic Acid Yes or No Add Lactic
[2020-10-26] VITALS (36 sets, daily range): BP systolic 76–207; BP diastolic 36–172; PULSE 97–117; RESP 18–94; TEMP 37.1–37.8; O2SAT 20–98
[2020-10-26] MEDS: SODIUM CHLORIDE 0.9% IV 500 ML IV CONT (00:54)
[2020-10-26] MEDS: NOREPINEPHRINE 8 MG/D5W 250 ML 8 MG/250 ML BAG 9.38 MG IV CONT (01:33)
[2020-10-26 01:54] LABS: Sodium 114 mmol/L (137-145)
[2020-10-26] MEDS: SODIUM CHLORIDE 0.9% IV 1,000 ML 125 ML IV CONT ×3 (05:11→21:45)
[2020-10-26] MEDS: CENTRAL LINE FLUSH 10 ML IV PUSH ×3 (05:11→19:44)
[2020-10-26 06:32] LABS: Hematocrit 23.8 % (37.0-47.0); Hemoglobin 7.9 g/dL (12.0-15.0); Mean Corpuscular HGB Conc 33.2 g/dl (32-36); Mean Corpuscular Hemoglobin 30.2 pg (26-34); Mean Corpuscular Volume 90.8 fl (80-100); Mean Platelet Volume 9.1 fl (7.4-10.4); Platelet Count Result 325 k/mm3 (150-375); Red Blood Count 2.62 M/mm3 (4.2-5.4); Red Cell Distribution Width 16.2 % (11.5-14.5); White Blood Count 9.1 K/mm3 (4.5-10.0)
[2020-10-26 06:40] LABS: Lactic Acid Reflex 1.4 mmol/L (0.7-2.1)
[2020-10-26 06:55] LABS: Alanine Aminotransferase 14 U/L (4-35); Albumin Level 2.5 g/dL (3.5-5.1); Alkaline Phosphatase 125 U/L (38-126); Anion Gap 9 mmol/L (8-16); Aspartate Amino Transferase 58 U/L (14-36); Bilirubin,Total 1.4 mg/dL (0.2-1.3); Blood Urea Nitrogen 14 mg/dL (7-17); CRP > 9.0 mg/dL (<1.0); Calcium 6.7 mg/dL (8.4-10.2); Carbon Dioxide 20 mmol/L (22-30); Chloride 87 mmol/L (98-107); Estimated CRCL calculation 32 ml/min; Estimated Glomerular Filt Rate 26; Glucose 103 mg/dL (65-105); Magnesium 1.8 mg/dL (1.6-2.3); Phosphorus 2.7 mg/dL (2.5-4.5); Potassium 3.6 mmol/L (3.4-5.0); Sodium 116 mmol/L (137-145)
[2020-10-26 07:33] LABS: Eosinophil Urine None Seen % (None Seen)
[2020-10-26 07:39] LABS: Creatinine Urine 72.3 mg/dL; Total Protein Urine Random 17 mg/dL; Ur Ttl Prot Creatinine Ratio 0.24 mg/mg (0-0.20)
[2020-10-26 07:45] LABS: Sodium Urine Random < 5 meq/L
[2020-10-26] MEDS: HEPARIN SODIUM 5,000 UNITS/ML VIAL 5000 UNITS SUB-Q ×2 (08:23→20:58)
--- NOTE | 2020-10-26 09:01 | WPDINTPN ---
Progress Note: A&P Assessment and Plan (1) Hyponatremia: Code(s): E87.1 - Hypo-osmolality and hyponatremia Status: Acute Assessment and Plan: severe acute hyponatremia which could be the cause of generalized weakness along with altered mental status. Multifactorial could be medications, decreased p.o. intake, underlying malignancy - patient was given 2-3 L of IV fluids in the ER - patient also got 3% saline on 10/25/2020 - initial sodium level was 109, - nephrology monitoring and managing the sodium levels (2) Hypokalemia: Code(s): E87.6 - Hypokalemia Status: Acute Assessment and Plan: acute hyperkalemia - RESOLVED - repleted in the ER, continue to follow potassium level and replace as needed (3) Acute kidney failure, unspecified: Code(s): N17.9 - Acute kidney failure, unspecified Status: Acute Assessment and Plan: acute kidney injury could be multifactorial hypotension, medication/chemotherapy related, decreased p.o. intake, UTI/infection/sepsis - patient received 2-3 L IV fluid bolus - will monitor urine output, renal function and electrolytes - creatinine trending down, continue to monitor - will try and maintain mean arterial pressures greater than 65-70 per mmHg for adequate end organ perfusion (4) Pyuria: Code(s): R82.81 - Pyuria Status: Acute Assessment and Plan: urinalysis reflective of a UTI given pyuria - on ceftriaxone - cultures have been obtained impending (5) Metastatic renal cell carcinoma: Code(s): C64.9 - Malignant neoplasm of unspecified kidney, except renal pelvis Status: Acute Assessment and Plan: patient follows with , will consult - 10/25/2020: Renal ultrasound normal right kidney, absent left kidney (6) Cellulitis: Code(s): L03.90 - Cellulitis, unspecified Status: Acute Assessment and Plan: possible left lower extremity cellulitis - continue ceftriaxone and vancomycin - 10/25/2020:venous Dopplers Bilateral lower extremity - negative for DVT (7) Anemia: Code(s): D64.9 - Anemia, unspecified Status: Acute Assessment and Plan: hemoglobin 8.8, - patient has history of anemia of chronic disease - hemoglobin is stable level (8) CKD (chronic kidney disease), stage III: Code(s): N18.3 - Chronic kidney disease, stage 3 (moderate) Status: Acute Assessment and Plan: patient has a history of chronic kidney disease stage 3 - continue to monitor urine output, electrolytes and renal function (9) PAF (paroxysmal atrial fibrillation): Code(s): I48.0 - Paroxysmal atrial fibrillation Status: Acute Assessment and Plan: history of proximal AFib, on Eliquis at home, Eliquis on hold for acute kidney injury - currently rate controlled (10) DVT prophylaxis: Code(s): Z29.9 - Encounter for prophylactic measures, unspecified Status: Acute Assessment and Plan: heparin subcu Additional Plan discussed with patient in detail and explained to her condition and plan of care. I answered all questions. code status: Full code Critical care time spent: 34 minutes discussed with Nephrology This dictation may have been done utilizing a voice recognition system. Attempts have been made to correct errors. However, there may be uncorrected grammatical, spelling, and recognition errors present. Due to a high probability of clinically significant, life threatening deterioration, the patient required my highest level of preparedness to intervene emergently and I personally spent this critical care time directly and personally managing the patient. This critical care time included obtaining a history; examining the patient; pulse oximetry; ordering and review of studies; arranging urgent treatment with development of a management plan; evaluation of patient's response to treatment; frequent reassessmen
[2020-10-26] MEDS: SODIUM CHLORIDE 0.45% 1,000 ML 125 ML IV CONT (09:02)
--- NOTE | 2020-10-26 09:11 | PM.PNNEP ---
Progress Note: A&P Assessment and Plan (1) Hyponatremia: Code(s): E87.1 - Hypo-osmolality and hyponatremia Status: Acute Assessment and Plan: the patient has hyponatremia. I do not think this is acute. CT brain is negative. Serum and urine osmolality are pending TSH is slightly high, probably not contributory. Cortisol is very low. Will get a Cortrosyn stim test. Etiology is probably multifactorial. she has cancer She has been on Zoloft. She is on chlorthalidone she has not been eating food. She has been getting tramadol. she received a small dose of hypertonic saline last night. Sodium level has come up from 109 to 116. It is [id number] since it was 109 and I fear she may overcorrected so I am going to switch to half-normal saline and repeat the sodium at noon. The nurse will call me the results (2) Hypokalemia: Code(s): E87.6 - Hypokalemia Status: Acute Assessment and Plan: resolved (3) Acute kidney failure, unspecified: Code(s): N17.9 - Acute kidney failure, unspecified Status: Acute Assessment and Plan: her baseline creatinine is 1.2. Renal ultrasound shows normal single kidney. Urine electrolytes are pre renal. Urine eosinophils are negative. Urinalysis shows infection patient's blood pressure is low and she is on pressors. With fluids show her creatinine has come down to 1.9. (4) Pyuria: Code(s): R82.81 - Pyuria Status: Acute Assessment and Plan: She has pyuria. Urine culture pending as well as blood cultures she is on ceftriaxone and vancomycin (5) Metastatic renal cell carcinoma: Code(s): C64.9 - Malignant neoplasm of unspecified kidney, except renal pelvis Status: Acute Assessment and Plan: Dr. Damon follows this as an outpatient (6) Essential hypertension: Code(s): I10 - Essential (primary) hypertension Status: Acute Assessment and Plan: blood pressure meds on hold (7) Depression: Code(s): F32.9 - Major depressive disorder, single episode, unspecified Status: Acute (8) PAF (paroxysmal atrial fibrillation): Code(s): I48.0 - Paroxysmal atrial fibrillation Status: Acute (9) Hemolytic anemia: Code(s): D58.9 - Hereditary hemolytic anemia, unspecified Status: Acute Assessment and Plan: hemoglobin down a little bit. She does have hemolytic anemia however could also have a component of chronic disease and or from elevated creatinine. Will get reticulocyte count. Subjective Date/time seen: 10/26/20 09:11 Interval history: Yaneth feels better today. She is eating some breakfast. She does not have asterixis anymore Review of Systems Cardiovascular: Cardiovascular: Reports no additional cardiovascular complaints Respiratory: Respiratory: Reports no additional respiratory complaints Gastrointestinal: Gastrointestinal: Reports no additional gastrointestinal complaints Genitourinary: Genitourinary: Reports no additional female genitourinary complaints Exam Narrative: Exam Narrative: WDWN in NAD skin no rash head ncat lungs clear cor reg no rub abd BS+ nontender and soft ext no edema. Objective Data Vital Signs Vital Signs: Vital Signs - 24 hr 10/25/20 10:30 10/25/20 11:41 10/25/20 12:37 Temperature 36.9 C Pulse Rate 98 97 97 Respiratory Rate 20 26 H 26 H Blood Pressure 88/50 L 96/34 L 98/53 L Pulse Oximetry 100 99 99 10/25/20 13:47 10/25/20 13:53 10/25/20 16:00 Temperature 36.9 C Pulse Rate 96 96 99 Respiratory Rate 25 H 25 H 22 H Blood Pressure 84/49 L 89/46 L 126/102 H Pulse Oximetry 99 100 96 10/25/20 18:00 10/25/20 20:00 10/25/20 20:50 Temperature 38.3 C H 38.3 C H Pulse Rate 103 H 104 H Respiratory Rate 22 H 22 H Blood Pressure 162/113 H 76/45 L Pulse Oximetry 90 92 10/25/20 21:12 10/25/20 21:30
[2020-10-26 10:09] LABS: Immature Reticulocyte Fraction 30.1 % (3.0-15.9); Reticulocyte Hemoglobin Conten 34.5 pg (28.2-35.7); Reticulocyte Percent 5.26 % (0.7-4.3); Reticulocytes Absolute 0.14 B/L (32.2-175.7)
[2020-10-26] MEDS: CIPROFLOXACIN HCL 0.3% OP SOLN 2.5 ML BTL 1 DROP EACH EYE ×4 (11:08→20:58)
[2020-10-26 12:25] LABS: Sodium 117 mmol/L (137-145)
[2020-10-26] MEDS: EPOETIN ALFA-EPBX 10,000 UNITS/ML VIAL 10000 UNITS SUB-Q (14:45)
--- NOTE | 2020-10-26 16:10 | PM.IMPN ---
Progress Note: A&P Assessment and Plan (1) Shock: Code(s): R57.9 - Shock, unspecified Status: Acute Assessment and Plan: 10/26/20 16:10 patient is 70-year-old female was in custodial for rehab and fell and patient was brought emergency department for further evaluation upon arrival patient was confused and was found to have profound hyponatremia with sodium of 109, suspect most likely secondary dehydration as patient had not been taking p.o. at the custodial for her , patient appears anasarca, most likely patient 3rd spacing and depleted intravascular volume, patient was given 1 L of bolus emergency depart, patient seen by Nephrology and placed on normal saline and 125cc an hour, her sodium slightly trending up, patient herself still quite somnolent and confused unable to provide any review of symptom, is present in the room did provide history, patient is in ICU seen by equipment hire manager and e commerce merchandising coordinator and appreciate. (2) Pyuria: Code(s): R82.81 - Pyuria Status: Acute Assessment and Plan: patient is started on ceftriaxone will follow-up on urine and blood culture (3) Acute kidney injury: Code(s): N17.9 - Acute kidney failure, unspecified Status: Acute Assessment and Plan: acute on chronic most likely secondary to dehydration patient is being gently hydrated will monitor kidney function (4) Hyponatremia: Code(s): E87.1 - Hypo-osmolality and hyponatremia Status: Acute Assessment and Plan: plan is above (5) Hypokalemia: Code(s): E87.6 - Hypokalemia Status: Acute Assessment and Plan: most likely secondary to poor p.o. will monitor and supplement (6) Hypomagnesemia: Code(s): E83.42 - Hypomagnesemia Status: Acute Assessment and Plan: will monitor and supplement (7) Metastatic renal cell carcinoma: Code(s): C64.9 - Malignant neoplasm of unspecified kidney, except renal pelvis Status: Acute Assessment and Plan: clinically stable (8) Anemia: Code(s): D64.9 - Anemia, unspecified Status: Acute Assessment and Plan: will monitor (9) Paroxysmal atrial fibrillation: Code(s): I48.0 - Paroxysmal atrial fibrillation Status: Acute Assessment and Plan: rate is controlled (10) Metabolic encephalopathy: Code(s): G93.41 - Metabolic encephalopathy Status: Acute Assessment and Plan: most likely secondary to profound hyponatremia and dehydration Additional Plan The patient presents today for evaluation of confusion and weakness. She most likely has a toxic metabolic encephalopathy related to her profound electrolyte abnormalities as well as acute kidney injury. Although she has generalized anasarca I think she probably is 3rd spacing and is intravascularly depleted. She did receive IV fluid boluses in the emergency department and we will be careful with hydration as to not cause her sodium to change too quickly. Her potassium and magnesium will be replaced and monitored. Dr. Harden, nephrology, has been consulted and his recommendations are appreciated. her blood pressure has been steadily going down throughout the day, possiblely secondary to intravascular depletion though sepsis and septic shock is also a possibility. Urine is abnormal with pyuria which could be a source of infection and she is also noted to have an erythematous left lower extremity and I suppose she could have cellulitis as well. Left hip site looks good without evidence of erythema or edema. Continue broad-spectrum antibiotics including vancomycin and ceftriaxone which should cover both possible cellulitis or UTI. May need to start Levophed to keep MAP greater than 65 or 70. Blood and urine cultures are pending. She has chronic anemia with a hemoglobin that is stable on review of previous labs. Subjective Date/time seen: 10/26/20 16:10 patient is 70-year-old fema
[2020-10-26 17:47] LABS: Sodium 118 mmol/L (137-145)
[2020-10-26 21:31] LABS: Sodium 119 mmol/L (137-145)
[2020-10-27] VITALS (26 sets, daily range): BP systolic 86–140; BP diastolic 43–110; PULSE 109–119; RESP 18–28; TEMP 36.5–37.7; O2SAT 91–97
[2020-10-27] MEDS: NOREPINEPHRINE 8 MG/D5W 250 ML 8 MG/250 ML BAG 13.13 MG IV CONT (00:04)
[2020-10-27] MEDS: CENTRAL LINE FLUSH 10 ML IV PUSH ×3 (04:42→22:46)
[2020-10-27 06:42] LABS: Hematocrit 25.6 % (37.0-47.0); Hemoglobin 8.4 g/dL (12.0-15.0); Mean Corpuscular HGB Conc 32.8 g/dl (32-36); Mean Corpuscular Hemoglobin 30.9 pg (26-34); Mean Corpuscular Volume 94.1 fl (80-100); Mean Platelet Volume 8.7 fl (7.4-10.4); Platelet Count Result 286 k/mm3 (150-375); Red Blood Count 2.72 M/mm3 (4.2-5.4); Red Cell Distribution Width 16.5 % (11.5-14.5); White Blood Count 8.6 K/mm3 (4.5-10.0)
[2020-10-27 06:51] LABS: Lactic Acid Reflex 1.6 mmol/L (0.7-2.1)
[2020-10-27] MEDS: SODIUM CHLORIDE 0.9% IV 1,000 ML 125 ML IV CONT ×3 (06:57→22:46)
[2020-10-27 07:02] LABS: Alanine Aminotransferase 15 U/L (4-35); Albumin Level 2.4 g/dL (3.5-5.1); Alkaline Phosphatase 148 U/L (38-126); Anion Gap 9 mmol/L (8-16); Aspartate Amino Transferase 59 U/L (14-36); Bilirubin,Total 1.3 mg/dL (0.2-1.3); Blood Urea Nitrogen 9 mg/dL (7-17); Calcium 6.8 mg/dL (8.4-10.2); Carbon Dioxide 20 mmol/L (22-30); Chloride 95 mmol/L (98-107); Estimated CRCL calculation 46 ml/min; Estimated Glomerular Filt Rate 41; Glucose 131 mg/dL (65-105); Magnesium 1.7 mg/dL (1.6-2.3); Phosphorus 2.6 mg/dL (2.5-4.5); Potassium 2.8 mmol/L (3.4-5.0); Sodium 124 mmol/L (137-145)
[2020-10-27 07:08] LABS: CRP 21.4 mg/dL (<1.0)
[2020-10-27] MEDS: HEPARIN SODIUM 5,000 UNITS/ML VIAL 5000 UNITS SUB-Q (09:19)
[2020-10-27] MEDS: CIPROFLOXACIN HCL 0.3% OP SOLN 2.5 ML BTL 1 DROP EACH EYE ×6 (09:19→22:46)
--- NOTE | 2020-10-27 10:17 | PM.PNNEP ---
Progress Note: A&P Assessment and Plan (1) Hyponatremia: Code(s): E87.1 - Hypo-osmolality and hyponatremia Status: Acute Assessment and Plan: the patient has hyponatremia. I do not think this is acute. CT brain is negative. Serum and urine osmolality are pending TSH is slightly high, probably not contributory. Cortisol is very low. Will get a Cortrosyn stim test. Etiology is probably multifactorial. she has cancer She has been on Zoloft. She is on chlorthalidone she has not been eating food. She has been getting tramadol. sodium level is better today. It seems to be improving at of appropriate rate of 8 or less per day. Today the sodium is 124. She has hypotension and is still requiring pressors. Will continue normal saline for this reason. She is not taking much orally. When she takes more in we can institute an official fluid restriction (2) Hypokalemia: Code(s): E87.6 - Hypokalemia Status: Acute Assessment and Plan: supplemented (3) Acute kidney failure, unspecified: Code(s): N17.9 - Acute kidney failure, unspecified Status: Acute Assessment and Plan: her baseline creatinine is 1.2. Renal ultrasound shows normal single kidney. Urine electrolytes are pre renal. Urine eosinophils are negative. Urinalysis shows infection patient's blood pressure is low and she is on pressors. her creatinine has returned to just about normal at 1.3 (4) Pyuria: Code(s): R82.81 - Pyuria Status: Acute Assessment and Plan: She has pyuria. Urine culture is negative, and blood cultures are no growth today she is on ceftriaxone and vancomycin (5) Metastatic renal cell carcinoma: Code(s): C64.9 - Malignant neoplasm of unspecified kidney, except renal pelvis Status: Acute Assessment and Plan: Dr. Damon follows this as an outpatient (6) Essential hypertension: Code(s): I10 - Essential (primary) hypertension Status: Acute Assessment and Plan: blood pressure meds on hold (7) Depression: Code(s): F32.9 - Major depressive disorder, single episode, unspecified Status: Acute (8) PAF (paroxysmal atrial fibrillation): Code(s): I48.0 - Paroxysmal atrial fibrillation Status: Acute (9) Hemolytic anemia: Code(s): D58.9 - Hereditary hemolytic anemia, unspecified Status: Acute Assessment and Plan: hemoglobin is up and down. Retake count is high. Subjective Date/time seen: 10/27/20 10:17 Interval history: Yaneth feels better today. She ate some breakfast. She is tired and yawning. She is still requiring some pressors to keep her blood pressure up. Exam Narrative: Exam Narrative: WDWN in NAD skin no rash head ncat lungs clear bilaterally cor reg no rub abd BS+ nontender and soft ext no edema Or cyanosis. Objective Data Vital Signs Vital Signs: Vital Signs - 24 hr 10/26/20 10:40 10/26/20 11:04 10/26/20 11:07 Temperature Pulse Rate 101 H 101 H 103 H Respiratory Rate 20 Blood Pressure 94/37 L 78/42 L Pulse Oximetry 92 92 10/26/20 11:09 10/26/20 11:32 10/26/20 12:00 Temperature Pulse Rate 102 H 102 H 101 H Respiratory Rate 94 H Blood Pressure 78/42 L 80/63 L 80/53 L Pulse Oximetry 20 L 10/26/20 13:52 10/26/20 14:00 10/26/20 14:45 Temperature Pulse Rate 103 H 104 H 108 H Respiratory Rate 94 H Blood Pressure 85/44 L 76/47 L 78/49 L Pulse Oximetry 24 L 10/26/20 15:07 10/26/20 16:00 10/26/20 16:03 Temperature 37.1 C Pulse Rate 108 H 110 H 110 H Respiratory Rate 18 18 Blood Pressure 82/38 L 82/38 L Pulse Oximetry 92 92 10/26/20 16:36 10/26/20 17:01 10/26/20 17:54 Temperature Pulse Rate 110 H 111 H 115 H Respiratory Rate Blood Pressure 93/36 L 100/76 Pulse Oximetry 10/26/20 18:00 10/26/20 18:28 10/26/20
--- NOTE | 2020-10-27 10:45 | WPDINTPN ---
Progress Note: A&P Assessment and Plan (1) Hyponatremia: Code(s): E87.1 - Hypo-osmolality and hyponatremia Status: Acute Assessment and Plan: severe acute hyponatremia which could be the cause of generalized weakness along with altered mental status. Multifactorial could be medications, decreased p.o. intake, underlying malignancy - patient was given 2-3 L of IV fluids in the ER - patient also got 3% saline on 10/25/2020 - initial sodium level was 109, - sodium levels up to 124 this morning - nephrology monitoring and managing the sodium levels (2) Hypokalemia: Code(s): E87.6 - Hypokalemia Status: Acute Assessment and Plan: acute hyperkalemia - will replete potassium (3) Acute kidney failure, unspecified: Code(s): N17.9 - Acute kidney failure, unspecified Status: Acute Assessment and Plan: acute kidney injury could be multifactorial hypotension, medication/chemotherapy related, decreased p.o. intake, UTI/infection/sepsis. Creatinine 2.5 on admission - patient received 2-3 L IV fluid bolus - will monitor urine output, renal function and electrolytes - creatinine 1.3 this morning,continue to monitor - will try and maintain mean arterial pressures greater than 65-70 per mmHg for adequate end organ perfusion (4) Pyuria: Code(s): R82.81 - Pyuria Status: Acute Assessment and Plan: urinalysis reflective of a UTI given pyuria - on ceftriaxone - 10/25/2020: urine culture - no growth (5) Metastatic renal cell carcinoma: Code(s): C64.9 - Malignant neoplasm of unspecified kidney, except renal pelvis Status: Acute Assessment and Plan: patient follows with , have consulted - 10/25/2020: Renal ultrasound normal right kidney, absent left kidney (6) Cellulitis: Code(s): L03.90 - Cellulitis, unspecified Status: Acute Assessment and Plan: possible left lower extremity cellulitis - continue ceftriaxone and vancomycin - 10/25/2020:venous Dopplers Bilateral lower extremity - negative for DVT (7) Anemia: Code(s): D64.9 - Anemia, unspecified Status: Acute Assessment and Plan: - patient has history of anemia of chronic disease - hemoglobin is stable level (8) CKD (chronic kidney disease), stage III: Code(s): N18.3 - Chronic kidney disease, stage 3 (moderate) Status: Acute Assessment and Plan: patient has a history of chronic kidney disease stage 3 - continue to monitor urine output, electrolytes and renal function (9) PAF (paroxysmal atrial fibrillation): Code(s): I48.0 - Paroxysmal atrial fibrillation Status: Acute Assessment and Plan: history of proximal AFib, on Eliquis at home, Eliquis on hold for acute kidney injury - currently rate controlled - restart Eliquis (10) DVT prophylaxis: Code(s): Z29.9 - Encounter for prophylactic measures, unspecified Status: Acute Assessment and Plan: will restart Eliquis Additional Plan discussed with patient and her and updated them with patient's condition and plan of care. I answered all questions. code status: Full code Critical care time spent: 33 minutes discussed with Nephrology This dictation may have been done utilizing a voice recognition system. Attempts have been made to correct errors. However, there may be uncorrected grammatical, spelling, and recognition errors present. Due to a high probability of clinically significant, life threatening deterioration, the patient required my highest level of preparedness to intervene emergently and I personally spent this critical care time directly and personally managing the patient. This critical care time included obtaining a history; examining the patient; pulse oximetry; ordering and review of studies; arranging urgent treatment with development of a management plan; evaluation of patient's res
--- NOTE | 2020-10-27 14:47 | PCSTNOTE ---
Bedside swallow evaluation completed. Please see ST evaluation for details and recommendations.
[2020-10-27] MEDS: NOREPINEPHRINE 8 MG/D5W 250 ML 8 MG/250 ML BAG 18.75 MG IV CONT (15:20)
[2020-10-27 15:44] LABS: Sodium 126 mmol/L (137-145)
[2020-10-27] MEDS: APIXABAN 2.5 MG TABLET PO (18:43)
[2020-10-27 21:20] LABS: Sodium 127 mmol/L (137-145)
[2020-10-28] VITALS (20 sets, daily range): BP systolic 93–135; BP diastolic 49–85; PULSE 85–117; RESP 13–35; TEMP 36.9–37.3; O2SAT 91–100
[2020-10-28] MEDS: CIPROFLOXACIN HCL 0.3% OP SOLN 2.5 ML BTL 1 DROP EACH EYE ×10 (00:23→22:02)
[2020-10-28 04:15] LABS: Hematocrit 25.7 % (37.0-47.0); Hemoglobin 8.2 g/dL (12.0-15.0); Mean Corpuscular HGB Conc 31.9 g/dl (32-36); Mean Corpuscular Hemoglobin 30.5 pg (26-34); Mean Corpuscular Volume 95.5 fl (80-100); Mean Platelet Volume 8.6 fl (7.4-10.4); Platelet Count Result 242 k/mm3 (150-375); Red Blood Count 2.69 M/mm3 (4.2-5.4); Red Cell Distribution Width 16.8 % (11.5-14.5); White Blood Count 8.4 K/mm3 (4.5-10.0)
[2020-10-28 04:32] LABS: Albumin Level 2.3 g/dL (3.5-5.1); Alkaline Phosphatase 142 U/L (38-126); Anion Gap 9 mmol/L (8-16); Aspartate Amino Transferase 57 U/L (14-36); Bilirubin,Total 1.2 mg/dL (0.2-1.3); Blood Urea Nitrogen 5 mg/dL (7-17); Calcium 6.9 mg/dL (8.4-10.2); Carbon Dioxide 21 mmol/L (22-30); Chloride 96 mmol/L (98-107); Estimated CRCL calculation 54 ml/min; Estimated Glomerular Filt Rate 49; Glucose 143 mg/dL (65-105); Magnesium 1.6 mg/dL (1.6-2.3); Phosphorus 1.9 mg/dL (2.5-4.5); Potassium 2.7 mmol/L (3.4-5.0); Sodium 126 mmol/L (137-145)
[2020-10-28 04:34] LABS: Alanine Aminotransferase 20 U/L (4-35)
[2020-10-28] MEDS: NOREPINEPHRINE 8 MG/D5W 250 ML 8 MG/250 ML BAG 15 MG IV CONT (05:48)
[2020-10-28] MEDS: CENTRAL LINE FLUSH 10 ML IV PUSH ×3 (05:59→22:02)
[2020-10-28] MEDS: POTASSIUM CHLORIDE 20 MEQ PACKET (FOR LIQUID) 40 MEQ PO (06:39)
--- NOTE | 2020-10-28 08:00 | P.CDI_ITS ---
CDI Query Clarification Request -Shock has been documented -Dehydration and most likely patient 3rd spacing and depleted intravascular volume documented. -Cellulitis possible left lower extremity Please further specify type/cause of shock: * Hypovolemic * Septic * Other * Unable to determine <Madyson Hernandez RN - Last Filed: 10/28/20 08:11> Clarified Diagnosis (1) Shock: Code(s): R57.9 - Shock, unspecified <Madyson Hernandez RN - Last Filed: 10/28/20 08:11> Status: Acute <Madyson Hernandez RN - Last Filed: 10/28/20 08:11> Assessment and Plan: most likely secondary to hypovolemic secondary dehydration as her symptoms improved with hydration <Aldo Sage MD - Last Filed: 10/28/20 16:05>
[2020-10-28] MEDS: POTASSIUM/PHOSPHORUS/SODIUM 1.5 GM PACKET 1 PACKET PO (08:29)
[2020-10-28] MEDS: APIXABAN 2.5 MG TABLET PO ×2 (08:38→17:27)
[2020-10-28] MEDS: SODIUM CHLORIDE 0.9% IV 1,000 ML 125 ML IV CONT ×2 (08:40→16:36)
[2020-10-28] MEDS: MAGNESIUM SULF 2 GM/WATER 50ML 2 GM/50 ML BAG IVPB (09:14)
--- NOTE | 2020-10-28 09:34 | WPDINTPN ---
Progress Note: A&P Assessment and Plan (1) Hyponatremia: Code(s): E87.1 - Hypo-osmolality and hyponatremia Status: Acute Assessment and Plan: severe acute hyponatremia which could be the cause of generalized weakness along with altered mental status. Multifactorial could be medications, decreased p.o. intake, underlying malignancy - patient was given 2-3 L of IV fluids in the ER - patient also got 3% saline on 10/25/2020 - initial sodium level was 109, - sodium levels up to 126 this morning - nephrology monitoring and managing the sodium levels (2) Hypokalemia: Code(s): E87.6 - Hypokalemia Status: Acute Assessment and Plan: acute hyperkalemia - will aggressively replete potassium (3) Acute kidney failure, unspecified: Code(s): N17.9 - Acute kidney failure, unspecified Status: Acute Assessment and Plan: acute kidney injury could be multifactorial hypotension, medication/chemotherapy related, decreased p.o. intake, UTI/infection/sepsis. Creatinine 2.5 on admission - patient received 2-3 L IV fluid bolus - will monitor urine output, renal function and electrolytes - creatinine 1.1 this morning,continue to monitor - will try and maintain mean arterial pressures greater than 65-70 per mmHg for adequate end organ perfusion (4) Pyuria: Code(s): R82.81 - Pyuria Status: Acute Assessment and Plan: urinalysis reflective of a UTI given pyuria - on ceftriaxone - 10/25/2020: urine culture - no growth (5) Metastatic renal cell carcinoma: Code(s): C64.9 - Malignant neoplasm of unspecified kidney, except renal pelvis Status: Acute Assessment and Plan: patient follows with , have consulted - 10/25/2020: Renal ultrasound normal right kidney, absent left kidney (6) Cellulitis: Code(s): L03.90 - Cellulitis, unspecified Status: Acute Assessment and Plan: possible left lower extremity cellulitis - continue ceftriaxone and vancomycin - 10/25/2020:venous Dopplers Bilateral lower extremity - negative for DVT (7) Anemia: Code(s): D64.9 - Anemia, unspecified Status: Acute Assessment and Plan: - patient has history of anemia of chronic disease - hemoglobin is stable level (8) CKD (chronic kidney disease), stage III: Code(s): N18.3 - Chronic kidney disease, stage 3 (moderate) Status: Acute Assessment and Plan: patient has a history of chronic kidney disease stage 3 - continue to monitor urine output, electrolytes and renal function (9) PAF (paroxysmal atrial fibrillation): Code(s): I48.0 - Paroxysmal atrial fibrillation Status: Acute Assessment and Plan: history of proximal AFib, on Eliquis at home, Eliquis on hold for acute kidney injury - currently rate controlled - continue Eliquis (10) DVT prophylaxis: Code(s): Z29.9 - Encounter for prophylactic measures, unspecified Status: Acute Assessment and Plan: on Eliquis Additional Plan discussed with patient and her and updated them with patient's condition and plan of care. I answered all questions. code status: Full code Critical care time spent: 32 minutes discussed with Nephrology This dictation may have been done utilizing a voice recognition system. Attempts have been made to correct errors. However, there may be uncorrected grammatical, spelling, and recognition errors present. Due to a high probability of clinically significant, life threatening deterioration, the patient required my highest level of preparedness to intervene emergently and I personally spent this critical care time directly and personally managing the patient. This critical care time included obtaining a history; examining the patient; pulse oximetry; ordering and review of studies; arranging urgent treatment with development of a management plan; evaluation of patient
[2020-10-28] MEDS: ACETAMINOPHEN 325 MG TABLET 650 MG PO (10:07)
[2020-10-28] MEDS: MIDODRINE HCL 2.5 MG TABLET 5 MG PO ×2 (10:09→17:27)
[2020-10-28] MEDS: MICONAZOLE NITRATE 2% CREAM 30 GM TUBE 1 APPLIC TOPICAL ×2 (14:30→20:29)
[2020-10-28] MEDS: LOPERAMIDE HCL 2 MG CAPSULE PO ×3 (15:31→17:10)
--- NOTE | 2020-10-28 16:05 | PM.IMPN ---
Progress Note: A&P Assessment and Plan (1) Shock: Code(s): R57.9 - Shock, unspecified Status: Acute Assessment and Plan: most likely secondary to hypovolemic secondary dehydration as her symptoms improved with hydration (2) Hyponatremia: Code(s): E87.1 - Hypo-osmolality and hyponatremia Status: Acute Assessment and Plan: 10/28/20 16:05 patient is 70-year-old female was [facility] and [facility] and patient was brought emergency department for further evaluation upon arrival patient was confused and was found to have profound hyponatremia with sodium of 109, suspect most likely secondary dehydration as patient had not been taking p[facility]o. [facility] the [facility] for her , patient appears anasarca, most likely patient 3rd spacing and depleted intravascular volume, patient was given 1 L of bolus emergency depart, patient seen by Nephrology and placed on normal saline and 125cc an hour, her sodium slightly trending up, patient herself still quite somnolent and confused unable to provide any review of symptom, is present in the room did provide history, patient is in ICU seen by drapery operator and director of promotions and appreciate. 10/28 today patient is more alert and communicative and have been sodium have trended up to 126 compared to 109 upon arrival, patient is been hydrate and rest 3% saline and seen by Nephrology as well as intensive, patient clinical symptoms are improving may transfer patient out of ICU possibly tomorrow will continue to monitor, appreciate director of promotions and Graphic Artist. (3) Hypokalemia: Code(s): E87.6 - Hypokalemia Status: Acute Assessment and Plan: will monitor insulin (4) Acute kidney failure, unspecified: Code(s): N17.9 - Acute kidney failure, unspecified Status: Acute Assessment and Plan: most likely secondary to dehydration patient is gently hydrated will monitor kidney function (5) Pyuria: Code(s): R82.81 - Pyuria Status: Acute Assessment and Plan: so far no growth (6) Cellulitis: Code(s): L03.90 - Cellulitis, unspecified Status: Acute Assessment and Plan: patient is treated ceftriaxone and vancomycin Additional Plan The patient presents today for evaluation of confusion and weakness. She most likely has a toxic metabolic encephalopathy related to her profound electrolyte abnormalities as well as acute kidney injury. Although she has generalized anasarca I think she probably is 3rd spacing and is intravascularly depleted. She did receive IV fluid boluses in the emergency department and we will be careful with hydration as to not cause her sodium to change too quickly. Her potassium and magnesium will be replaced and monitored. Dr. Harden, nephrology, has been consulted and his recommendations are appreciated. her blood pressure has been steadily going down throughout the day, possiblely secondary to intravascular depletion though sepsis and septic shock is also a possibility. Urine is abnormal with pyuria which could be a source of infection and she is also noted to have an erythematous left lower extremity and I suppose she could have cellulitis as well. Left hip site looks good without evidence of erythema or edema. Continue broad-spectrum antibiotics including vancomycin and ceftriaxone which should cover both possible cellulitis or UTI. May need to start Levophed to keep MAP greater than 65 or 70. Blood and urine cultures are pending. She has chronic anemia with a hemoglobin that is stable on review of previous labs. Subjective Date/time seen: 10/28/20 16:05 patient is 70-year-old female was [facility] and fell and patient was brought emergency department for further evaluation upon arrival patient was confused and was found to have profound hyponatremia with sodium of 109, suspect most likely secondary dehydration as patient had not been taking p.o. at the nursing ho
--- NOTE | 2020-10-28 16:33 | PM.PNNEP ---
Progress Note: A&P Assessment and Plan (1) Hyponatremia: Code(s): E87.1 - Hypo-osmolality and hyponatremia Status: Acute Assessment and Plan: suspect this is more of a chronic issue than acute multifactorial etiology: - cancer/malignancy - on SSRI (zoloft) - on thiazide diuretic (chlorthalidone) - poor oral intake - tramadol use (pain) evaluation to date: - CT brain is negative - serum and urine osmolality are pending - TSH is slightly high - probably not contributory - cortisol is very low - will check Cortrosyn stim test when a bit more stable sodium level improving -- seems to be improving at of appropriate rate continue normal saline since still on pressors and hypotension when she takes more in, then can institute an official fluid restriction (2) Hypokalemia: Code(s): E87.6 - Hypokalemia Status: Acute Assessment and Plan: suspect total body potassium depleted state replace as needed follow magnesium (3) Acute kidney failure, unspecified: Code(s): N17.9 - Acute kidney failure, unspecified Status: Resolved Assessment and Plan: resolved/resolving due to hypotension/hemodynamic instability and prerenal factors evaluation to date: - renal ultrasound shows normal single kidney - urine electrolytes are pre renal - urine eosinophils are negative - urinalysis shows infection/inflammation (but culture negative) follow trend of repeat labs (4) Pyuria: Code(s): R82.81 - Pyuria Status: Acute Assessment and Plan: suggestive of UTI urine culture is negative on antibiotics (5) Metastatic renal cell carcinoma: Code(s): C64.9 - Malignant neoplasm of unspecified kidney, except renal pelvis Status: Chronic Assessment and Plan: Dr. Marshall follows this as an outpatient [facility]iary prognosis(?) Will continue to follow. Subjective Date/time seen: 10/28/20 16:33 Chart reviewed -- mentation has been doing better in general; sodium continue to improve with current interventions; has been requiring vasopressor therapy to maintain MAP/blood pressure; no acute distress noted. Exam Narrative: Exam Narrative: General: WD/WN female in NAD Heart: normal S1 and S2; no rub Lungs: clear to auscultation Abdomen: soft, nontender, nondistended, positive bowel sounds Extremities: no cyanosis or clubbing; no edema Skin: warm and dry Objective Data Vital Signs Vital Signs: Vital Signs Temp Pulse Resp BP Pulse Ox 10/28/20 16:00 36.9 C 100 34 H 99/53 L 93 10/28/20 14:00 99 19 105/59 L 94 10/28/20 12:00 101 H 22 H 93/49 L 95 10/28/20 10:02 95 10/28/20 10:00 106 H 13 101/79 100 10/28/20 09:03 98 10/28/20 08:00 37.2 C 107 H 21 H 135/71 96 10/28/20 06:00 108 H 25 H 108/59 L 97 10/28/20 05:48 109 H 97/65 L 10/28/20 04:00 37.3 C 108 H 23 H 100/50 L 94 10/28/20 02:00 110 H 30 H 107/49 L 93 10/28/20 00:30 117 H 27 H 94/63 L 93 10/28/20 00:05 114 H 106/56 L 10/28/20 00:00 37.2 C 113 H 25 H 106/56 L 92 10/27/20 23:14 94 10/27/20 22:00 118 H 22 H 109/53 L 94 10/27/20 21:45 119 H 121/51 L 10/27/20 20:19 110 H 115/50 L 10/27/20 20:00 37.3 C 117 H 26 H 115/50 L 94 Intake/Output Intake/Output: Intake & Output 10/25/20 10/26/20 10/27/20 10/28/20 23:59 23:59 23:59 23:59 Intake Total 1800 3210 4890 3140 Output Total 950 1850 1200 Balance 1800 2260 3040 1940 Meds/Results Medications: Active Medications Generic Name Dose Route Start Last Admin Trade Name Freq PRN Reason Stop Dose Admin Acetaminophen 650 mg 10/25/20 13:10 10/28/20 10:07 Acetaminophen 325 Mg Tablet PO 650 mg Q4H PRN Administra
[2020-10-29] VITALS (17 sets, daily range): BP systolic 75–129; BP diastolic 38–70; PULSE 98–114; RESP 16–40; TEMP 36.2–37.4; O2SAT 89–100; BMI 10.0
[2020-10-29] MEDS: CIPROFLOXACIN HCL 0.3% OP SOLN 2.5 ML BTL 1 DROP EACH EYE ×11 (00:02→23:18)
[2020-10-29] MEDS: SODIUM CHLORIDE 0.9% IV 1,000 ML 125 ML IV CONT ×3 (00:03→17:45)
[2020-10-29] MEDS: NOREPINEPHRINE 8 MG/D5W 250 ML 8 MG/250 ML BAG 13.13 MG IV CONT (00:03)
[2020-10-29] MEDS: CENTRAL LINE FLUSH 10 ML IV PUSH ×3 (05:18→21:42)
[2020-10-29 05:41] LABS: Hematocrit 26.9 % (37.0-47.0); Hemoglobin 8.4 g/dL (12.0-15.0); Mean Corpuscular HGB Conc 31.2 g/dl (32-36); Mean Corpuscular Hemoglobin 30.1 pg (26-34); Mean Corpuscular Volume 96.4 fl (80-100); Mean Platelet Volume 8.5 fl (7.4-10.4); Platelet Count Result 193 k/mm3 (150-375); Red Blood Count 2.79 M/mm3 (4.2-5.4); Red Cell Distribution Width 16.3 % (11.5-14.5); White Blood Count 6.8 K/mm3 (4.5-10.0)
[2020-10-29 05:56] LABS: Alanine Aminotransferase 16 U/L (4-35); Albumin Level 2.3 g/dL (3.5-5.1); Alkaline Phosphatase 139 U/L (38-126); Anion Gap 8 mmol/L (8-16); Aspartate Amino Transferase 47 U/L (14-36); Bilirubin,Total 0.9 mg/dL (0.2-1.3); Blood Urea Nitrogen 2 mg/dL (7-17); Calcium 6.7 mg/dL (8.4-10.2); Carbon Dioxide 22 mmol/L (22-30); Chloride 99 mmol/L (98-107); Estimated CRCL calculation 59 ml/min; Estimated Glomerular Filt Rate 55; Glucose 111 mg/dL (65-105); Magnesium 1.8 mg/dL (1.6-2.3); Phosphorus 2.1 mg/dL (2.5-4.5); Potassium 3.2 mmol/L (3.4-5.0); Sodium 129 mmol/L (137-145)
[2020-10-29] MEDS: APIXABAN 2.5 MG TABLET PO ×2 (08:09→16:49)
[2020-10-29] MEDS: MIDODRINE HCL 2.5 MG TABLET 5 MG PO ×3 (08:09→16:49)
[2020-10-29] MEDS: MICONAZOLE NITRATE 2% CREAM 30 GM TUBE 1 APPLIC TOPICAL ×2 (08:10→21:42)
[2020-10-29] MEDS: EPOETIN ALFA-EPBX 10,000 UNITS/ML VIAL 10000 UNITS SUB-Q (08:10)
[2020-10-29] MEDS: CALCIUM GLUC 2,000 MG/NS 100ML 2,000 MG/100 ML BAG 100 MG IVPB (08:40)
--- NOTE | 2020-10-29 09:05 | WPDINTPN ---
Progress Note: A&P Assessment and Plan (1) Shock: Code(s): R57.9 - Shock, unspecified Status: Acute Assessment and Plan: continue Levophed. hold further IV fluids at this time - I will add 25% albumin - On Midodrine (2) Hyponatremia: Code(s): E87.1 - Hypo-osmolality and hyponatremia Status: Acute Assessment and Plan: severe acute hyponatremia which could be the cause of generalized weakness along with altered mental status. Multifactorial could be medications, decreased p.o. intake, underlying malignancy - patient was given 2-3 L of IV fluids in the ER - patient also got 3% saline on 10/25/2020 - initial sodium level was 109, - sodium levels up to 129 this morning - nephrology monitoring and managing the sodium levels (3) Hypokalemia: Code(s): E87.6 - Hypokalemia Status: Acute Assessment and Plan: replacement ordered (4) Acute kidney failure, unspecified: Code(s): N17.9 - Acute kidney failure, unspecified Status: Resolved Assessment and Plan: acute kidney injury could be multifactorial hypotension, medication/chemotherapy related, decreased p.o. intake, UTI/infection/sepsis. Creatinine 2.5 on admission - patient received 2-3 L IV fluid bolus - will monitor urine output, renal function and electrolytes - renal function has improved and creatinine is 1 this morning. - continue to monitor - will try and maintain mean arterial pressures greater than 65-70 per mmHg for adequate end organ perfusion (5) Pyuria: Code(s): R82.81 - Pyuria Status: Acute Assessment and Plan: urinalysis reflective of a UTI given pyuria - on ceftriaxone - 10/25/2020: urine culture - no growth (6) Metastatic renal cell carcinoma: Code(s): C64.9 - Malignant neoplasm of unspecified kidney, except renal pelvis Status: Chronic Assessment and Plan: patient follows with , have consulted - 10/25/2020: Renal ultrasound normal right kidney, absent left kidney (7) Cellulitis: Code(s): L03.90 - Cellulitis, unspecified Status: Acute Assessment and Plan: possible left lower extremity cellulitis - continue ceftriaxone and vancomycin - 10/25/2020:venous Dopplers Bilateral lower extremity - negative for DVT (8) Anemia: Code(s): D64.9 - Anemia, unspecified Status: Acute Assessment and Plan: - patient has history of anemia of chronic disease - hemoglobin is stable level (9) CKD (chronic kidney disease), stage III: Code(s): N18.3 - Chronic kidney disease, stage 3 (moderate) Status: Acute Assessment and Plan: patient has a history of chronic kidney disease stage 3 - continue to monitor urine output, electrolytes and renal function (10) PAF (paroxysmal atrial fibrillation): Code(s): I48.0 - Paroxysmal atrial fibrillation Status: Acute Assessment and Plan: history of proximal AFib, on Eliquis at home, - currently rate controlled - continue Eliquis (11) DVT prophylaxis: Code(s): Z29.9 - Encounter for prophylactic measures, unspecified Status: Acute Assessment and Plan: on Eliquis Additional Plan Code status: Full code Critical care time spent: 30 minutes This dictation may have been done utilizing a voice recognition system. Attempts have been made to correct errors. However, there may be uncorrected grammatical, spelling, and recognition errors present. Due to a high probability of clinically significant, life threatening deterioration, the patient required my highest level of preparedness to intervene emergently and I personally spent this critical care time directly and personally managing the patient. This critical care time included obtaining a history; examining the patient; pulse oximetry; ordering and review of studies; arranging urgent treatment with development of a management plan; evaluation of
[2020-10-29] MEDS: POTASSIUM PHOS,M-BASIC-D-BASIC 20 MMOL in SODIUM CHLORIDE 0.9% IV 250 ML 64.17 MMOL IVPB (09:40)
[2020-10-29] MEDS: POTASSIUM CHLORIDE 20 MEQ PACKET (FOR LIQUID) 40 MEQ PO (09:49)
--- NOTE | 2020-10-29 11:04 | PM.PNNEP ---
Progress Note: A&P Assessment and Plan (1) Hyponatremia: Code(s): E87.1 - Hypo-osmolality and hyponatremia Status: Acute Assessment and Plan: suspect this is more of a chronic issue than acute multifactorial etiology: - cancer/malignancy - on SSRI (zoloft) - on thiazide diuretic (chlorthalidone) - poor oral intake - tramadol use (pain) evaluation to date: - CT brain is negative - serum and urine osmolality are pending - TSH is slightly high - probably not contributory - cortisol is very low - will check Cortrosyn stim test when a bit more stable sodium level improving -- seems to be improving at of appropriate rate continue normal saline since still on pressors and hypotension when she takes more in, then can institute an official fluid restriction (2) Hypokalemia: Code(s): E87.6 - Hypokalemia Status: Acute Assessment and Plan: suspect total body potassium depleted state replace as needed follow magnesium (3) Acute kidney failure, unspecified: Code(s): N17.9 - Acute kidney failure, unspecified Status: Resolved Assessment and Plan: resolved/resolving due to hypotension/hemodynamic instability and prerenal factors evaluation to date: - renal ultrasound shows normal single kidney - urine electrolytes are pre renal - urine eosinophils are negative - urinalysis shows infection/inflammation (but culture negative) follow trend of repeat labs (4) Pyuria: Code(s): R82.81 - Pyuria Status: Acute Assessment and Plan: suggestive of UTI urine culture is negative on antibiotics (5) Metastatic renal cell carcinoma: Code(s): C64.9 - Malignant neoplasm of unspecified kidney, except renal pelvis Status: Chronic Assessment and Plan: Dr. Marshall follows this as an outpatient skilled nursing prognosis(?) Will continue to follow. Subjective Date/time seen: 10/29/20 11:04 Remains on low dose levophed at this time along with IVFs; fluctuating mental status overnight and earlier this AM; slow and steady improvement in sodium at this time; no apparent distress noted. Exam Narrative: Exam Narrative: General: WD/WN female in NAD Heart: normal S1 and S2; no rub Lungs: clear to auscultation Abdomen: soft, nontender, nondistended, positive bowel sounds Extremities: no cyanosis or clubbing; no edema Skin: warm and intact Objective Data Vital Signs Vital Signs: Vital Signs Temp Pulse Resp BP Pulse Ox 10/29/20 10:00 105 H 29 H 80/38 L 98 10/29/20 08:00 37.2 C 110 H 19 95/51 L 97 10/29/20 07:30 107 H 120/59 L 10/29/20 06:00 110 H 16 97/59 L 96 10/29/20 05:16 114 H 99/55 L 10/29/20 04:00 37.2 C 109 H 22 H 129/54 L 89 L 10/29/20 03:30 106 H 120/52 L 10/29/20 02:00 111 H 20 126/55 L 97 10/29/20 00:03 113 H 107/62 10/29/20 00:00 37.4 C 112 H 40 H 107/62 97 10/28/20 23:26 113 H 107/62 10/28/20 22:00 104 H 35 H 97/60 L 92 10/28/20 20:27 100 110/85 10/28/20 20:00 37.2 C 99 24 H 106/53 L 91 10/28/20 18:00 101 H 34 H 114/62 93 10/28/20 17:17 95 10/28/20 16:00 36.9 C 100 34 H 99/53 L 93 10/28/20 14:00 99 19 105/59 L 94 Intake/Output Intake/Output: Intake & Output 10/26/20 10/27/20 10/28/20 10/29/20 23:59 23:59 23:59 23:59 Intake Total 3210 4890 3440 2458 Output Total 950 1850 1200 2350 Balance 2260 3040 2240 108 Meds/Results Medications: Active Medications Generic Name Dose Route Start Last Admin Trade Name Freq PRN Reason Stop Dose Admin Acetaminophen 650 mg 10/25/20 13:10 10/28/20 10:07 Acetaminophen 325 Mg Tablet PO 650 mg Q4H PRN Administration Mild Pain (1-3) or Fever Apixaban 2
[2020-10-29] MEDS: ALBUMIN HUMAN 25% 25 GM/100 ML 100 ML IVPB ×2 (11:59→17:44)
--- NOTE | 2020-10-29 15:36 | PM.IMPN ---
Progress Note: A&P Assessment and Plan (1) Shock: Code(s): R57.9 - Shock, unspecified Status: Acute Assessment and Plan: most likely secondary to hypovolemic secondary dehydration as her symptoms improved with hydration (2) Hyponatremia: Code(s): E87.1 - Hypo-osmolality and hyponatremia Status: Acute Assessment and Plan: patient is 70-year-old female was in long-term for rehab and fell and patient was brought emergency department for further evaluation upon arrival patient was confused and was found to have profound hyponatremia with sodium of 109, suspect most likely secondary dehydration as patient had not been taking p.o. at the long-term for her , patient appears anasarca, most likely patient 3rd spacing and depleted intravascular volume, patient was given 1 L of bolus emergency depart, patient seen by Nephrology and placed on normal saline and 125cc an hour, her sodium slightly trending up, patient herself still quite somnolent and confused unable to provide any review of symptom, is present in the room did provide history, patient is in ICU seen by economic development manager and joist setter and appreciate. 10/28 today patient is more alert and communicative and have been sodium have trended up to 126 compared to 109 upon arrival, patient is been hydrate and rest 3% saline and seen by Nephrology as well as intensive, patient clinical symptoms are improving may transfer patient out of ICU possibly tomorrow will continue to monitor, appreciate joist setter and File Clerk Data Entry. 10/29 sodium level at 129. Mild hypokalemia. Normal renal function. Hypotension persists and on Levophed 25% albumin added along with midodrine. Nephrology following for sodium levels. Acute kidney injury with creatinine of 2.5 on admission resolved with normal renal function currently. Urinalysis reflective of UTI on ceftriaxone urine culture with no growth. History of renal cell carcinoma following Dr. john Anaya. Possible left lower extremity cellulitis on ceftriaxone and vancomycin. Anemia of chronic disease hemoglobin stable at 8. Proximal atrial fibrillation rate control on Eliquis. (3) Hypokalemia: Code(s): E87.6 - Hypokalemia Status: Acute Assessment and Plan: Replace as needed (4) Acute kidney failure, unspecified: Code(s): N17.9 - Acute kidney failure, unspecified Status: Resolved Assessment and Plan: most likely secondary to dehydration patient is gently hydrated will monitor kidney function, has normalized now (5) Pyuria: Code(s): R82.81 - Pyuria Status: Acute Assessment and Plan: so far no growth (6) Cellulitis: Code(s): L03.90 - Cellulitis, unspecified Status: Acute Assessment and Plan: patient is treated ceftriaxone and vancomycin Additional Plan DVT prophylaxis on Eliquis Subjective Date/time seen: 10/29/20 15:36 Interval history: no overnight events. Patient remains confused. Answer some questions. Duckworth catheter in place. Denies shortness of breath or chest pain Review of Systems Review of Systems: All systems reviewed & are unremarkable except as noted in HPI and below Exam Narrative: Exam Narrative: Patient is comfortable, NAD confused HEENT: eyes are clear and none icteric LUNGS:CTA no respiratory distress HEART: RR S1S2 ABD: BS+, Soft and nontender Lower extremities: edematous lower extremities with some reddish hue on the left lower extremities no cyanosis or clubbing SKIN: nonjaundiced Neuro: grossly intact no gross motor deficits alert and conversant follow some command Objective Data Vital Signs Vital Signs: Vital Signs - 24 hr 10/28/20 16:00 10/28/20 17:17 10/28/20 18:00 Temperature 98.4 F Pulse Rate 100 101 H Respiratory Rate 34 H 34 H Blood Pressure 99/53 L 114/62 Pulse Oximetry 93 95 93 10/28/20 20:00 10/28/20 20:27 10/28/20 22:00 Temperature
[2020-10-30] VITALS (16 sets, daily range): BP systolic 92–117; BP diastolic 51–89; PULSE 93–108; RESP 22–33; TEMP 36.8–37.4; O2SAT 92–100
--- NOTE | 2020-10-30 | ECHO_ITS ---
Patient Info Name: Yaneth Osborne Age: 70 years : 1950 Gender: Female Ht: 64 in Wt: 247 lbs BSA: 2.31 m2 HR: 96 bpm BP: 109 / 66 mmHg Technical Quality: Fair Exam Date: 10/30/2020 1:32 PM Exam Location: [facility] Patient Status: Inpatient Admit Date: 10/25/2020 Staff Ordering Physician: Kurt Henderson MD Systems Administrator: Oh Shaw RDCS, RT Attending Provider: Shanae Amado MD Exam Type: CA echo doppler color flow Study Info Indications R57.0 - Cardiogenic shock Complete two-dimensional, color flow and Doppler transthoracic echocardiogram is performed with contrast to opacify the left ventricle and to improve the deliniation of the left ventricle endocardial borders. Summary 1. Left ventricular chamber dimension is normal. 2. Definity contrast administered improved wall motion interpretation. 3. Left ventricular systolic function is normal, estimated at 60-65%. 4. There is mildly increased left ventricular wall thickness. 5. The left ventricular diastolic function is grade I diastolic dysfunction. 6. E/e' 8 is minimally elevated. Left Ventricle E/e' 8 is minimally elevated. Definity contrast administered improved wall motion interpretation. Left ventricular chamber dimension is normal. Left ventricular systolic function is normal, estimated at 60-65%. There is mildly increased left ventricular wall thickness. The left ventricular diastolic function is grade I diastolic dysfunction. Right Ventricle Right ventricular systolic function is normal and with normal TAPSE 2.4 cm.. Right ventricular chamber dimension is normal. Left Atria Left atrial chamber dimension is normal. Right Atria Right atrial chamber dimension is normal. Aortic Valve The aortic valve is not well visualized. There is no aortic valve stenosis. There is no aortic valve regurgitation. Pulmonic Valve There is no pulmonic regurgitation. Mitral Valve There is no mitral valve stenosis. There is no mitral valve regurgitation. Tricuspid Valve There is no tricuspid valve regurgitation. Pericardium/Pleural There is no pericardial effusion. Inferior Vena Cava Normal inferior vena cava with >50% collapse upon inspiration consistent with normal right atrial pressure, 5 mmHg. Aorta The aortic root size at the sinus of Valsalva is normal. Left Ventricular Outflow Tract Name Value Normal LVOT 2D LVOT Diameter 2.0 cm LVOT Doppler LVOT Peak Gradient 3 mmHg LVOT Mean Gradient 2 mmHg LVOT VTI 15 cm LVOT VTI/AV VTI Ratio 0.9 LVOT Stroke Volume 46 ml LVOT CO 4.3 l/min LVOT CI 1.9 l/min/m2 Mitral Valve Name Value Normal MV Doppler MV Decel Mono
[2020-10-30 00:01] LABS: Vancomycin Trough 17.4 ug/mL (10.0-20.0)
[2020-10-30] MEDS: ALBUMIN HUMAN 25% 25 GM/100 ML 100 ML IVPB ×5 (00:32→23:21)
[2020-10-30] MEDS: CIPROFLOXACIN HCL 0.3% OP SOLN 2.5 ML BTL 1 DROP EACH EYE ×11 (00:32→22:18)
[2020-10-30] MEDS: SODIUM CHLORIDE 0.9% IV 1,000 ML 125 ML IV CONT (01:57)
[2020-10-30 05:21] LABS: Hematocrit 24.1 % (37.0-47.0); Hemoglobin 7.5 g/dL (12.0-15.0); Mean Corpuscular HGB Conc 31.1 g/dl (32-36); Mean Corpuscular Volume 96.4 fl (80-100); Platelet Count Result 168 k/mm3 (150-375); Red Cell Distribution Width 16.5 % (11.5-14.5); White Blood Count 5.1 K/mm3 (4.5-10.0)
[2020-10-30 05:48] LABS: Alanine Aminotransferase 11 U/L (4-35); Albumin Level 2.6 g/dL (3.5-5.1); Alkaline Phosphatase 106 U/L (38-126); Anion Gap 8 mmol/L (8-16); Aspartate Amino Transferase 36 U/L (14-36); Bilirubin,Total 1.2 mg/dL (0.2-1.3); Carbon Dioxide 21 mmol/L (22-30); Chloride 101 mmol/L (98-107); Estimated CRCL calculation 63 ml/min; Estimated Glomerular Filt Rate > 60; Glucose 95 mg/dL (65-105); Magnesium 1.4 mg/dL (1.6-2.3); Phosphorus 2.6 mg/dL (2.5-4.5); Sodium 130 mmol/L (137-145)
[2020-10-30] MEDS: CENTRAL LINE FLUSH 10 ML IV PUSH ×3 (05:56→22:18)
[2020-10-30 06:01] LABS: Blood Urea Nitrogen < 2 mg/dL (7-17)
[2020-10-30] MEDS: MIDODRINE HCL 2.5 MG TABLET 5 MG PO ×3 (07:53→18:13)
[2020-10-30] MEDS: APIXABAN 2.5 MG TABLET PO ×2 (07:54→18:13)
[2020-10-30] MEDS: MICONAZOLE NITRATE 2% CREAM 30 GM TUBE 1 APPLIC TOPICAL ×2 (07:55→22:18)
--- NOTE | 2020-10-30 08:31 | WPDINTPN ---
Progress Note: A&P Assessment and Plan (1) Shock: Code(s): R57.9 - Shock, unspecified Status: Acute Assessment and Plan: Levophed was turned of this morning. I will continue to monitor and see if needs to be restarted. patient is overall volume overloaded hence will discontinue further IV fluids at this time - continue 25% albumin for now - continue Midodrine (2) Hyponatremia: Code(s): E87.1 - Hypo-osmolality and hyponatremia Status: Acute Assessment and Plan: severe acute hyponatremia which could be the cause of generalized weakness along with altered mental status. Multifactorial could be medications, decreased p.o. intake, underlying malignancy - patient was given 2-3 L of IV fluids in the ER - patient also got 3% saline on 10/25/2020 - initial sodium level was 109, - sodium levels have normalized now in are stable - nephrology monitoring and managing the sodium levels (3) Hypokalemia: Code(s): E87.6 - Hypokalemia Status: Acute Assessment and Plan: additional replacement ordered (4) Acute kidney failure, unspecified: Code(s): N17.9 - Acute kidney failure, unspecified Status: Resolved Assessment and Plan: acute kidney injury could be multifactorial hypotension, medication/chemotherapy related, decreased p.o. intake, UTI/infection/sepsis. Creatinine 2.5 on admission - patient received 2-3 L IV fluid bolus and over the course her renal function has normalized - will monitor urine output, renal function and electrolytes (5) Pyuria: Code(s): R82.81 - Pyuria Status: Acute Assessment and Plan: urinalysis reflective of a UTI given pyuria - on ceftriaxone - 10/25/2020: urine culture - no growth (6) Metastatic renal cell carcinoma: Code(s): C64.9 - Malignant neoplasm of unspecified kidney, except renal pelvis Status: Chronic Assessment and Plan: patient had a renal cell carcinoma and had left radical nephrectomy in 2016. Post that she received chemo and radiation for recurrent. Currently she follows with at [facility] in [facility]. Early this year she was found to be having a lytic lesion in her hip which led to a fracture for which she had the hip surgery in September. She is supposed to start on a new chemotherapy drug Fotivda but has not taken it yet. As per she also has a spot in the liver and pancreas I do not have records on that information. I did obtain records from [facility] but that for mostly about her hip surgery - 10/25/2020: Renal ultrasound normal right kidney, absent left kidney (7) Cellulitis: Code(s): L03.90 - Cellulitis, unspecified Status: Acute Assessment and Plan: possible left lower extremity cellulitis - continue ceftriaxone but will discontinue vancomycin as all cultures have been negative - 10/25/2020:venous Dopplers Bilateral lower extremity - negative for DVT (8) Anemia: Code(s): D64.9 - Anemia, unspecified Status: Acute Assessment and Plan: - patient has history of anemia of chronic disease - hemoglobin is stable level (9) CKD (chronic kidney disease), stage III: Code(s): N18.3 - Chronic kidney disease, stage 3 (moderate) Status: Acute Assessment and Plan: patient has a history of chronic kidney disease stage 3 - continue to monitor urine output, electrolytes and renal function (10) PAF (paroxysmal atrial fibrillation): Code(s): I48.0 - Paroxysmal atrial fibrillation Status: Acute Assessment and Plan: history of proximal AFib, on Eliquis at home, - currently rate controlled - continue Eliquis (11) DVT prophylaxis: Code(s): Z29.9 - Encounter for prophylactic measures, unspecified Status: Acute Assessment and Plan: on Eliquis (12) Hypothyroidism: Code(s): E03.9 - Hypothyroidism, unspecified
[2020-10-30] MEDS: MAGNESIUM SULF 2 GM/WATER 50ML 2 GM/50 ML BAG IVPB (08:44)
[2020-10-30] MEDS: POTASSIUM CHLORIDE 20 MEQ PACKET (FOR LIQUID) 40 MEQ PO ×2 (08:45→12:56)
[2020-10-30] MEDS: LEVOTHYROXINE SODIUM 125 MCG TABLET PO (09:45)
[2020-10-30] MEDS: buPROPion HCL 75 MG TABLET PO ×2 (09:45→22:18)
[2020-10-30] MEDS: PERFLUTREN LIPID MICROSPHERES 1.5 ML VIAL DILUTED TO 10 ML TOTAL VOLUME IV PUSH (13:53)
--- NOTE | 2020-10-30 14:31 | PM.IMPN ---
Progress Note: A&P Assessment and Plan (1) Shock: Code(s): R57.9 - Shock, unspecified Status: Acute Assessment and Plan: most likely secondary to hypovolemic secondary dehydration as her symptoms improved with hydration (2) Hyponatremia: Code(s): E87.1 - Hypo-osmolality and hyponatremia Status: Acute Assessment and Plan: patient is 70-year-old female was in half-way for rehab and fell and patient was brought emergency department for further evaluation upon arrival patient was confused and was found to have profound hyponatremia with sodium of 109, suspect most likely secondary dehydration as patient had not been taking p.o. at the half-way for her , patient appears anasarca, most likely patient 3rd spacing and depleted intravascular volume, patient was given 1 L of bolus emergency depart, patient seen by Nephrology and placed on normal saline and 125cc an hour, her sodium slightly trending up, patient herself still quite somnolent and confused unable to provide any review of symptom, is present in the room did provide history, patient is in ICU seen by fur blower operator and instructional design technologist and appreciate. 10/28 today patient is more alert and communicative and have been sodium have trended up to 126 compared to 109 upon arrival, patient is been hydrate and rest 3% saline and seen by Nephrology as well as intensive, patient clinical symptoms are improving may transfer patient out of ICU possibly tomorrow will continue to monitor, appreciate instructional design technologist and Auditor/Quality. 10/29 sodium level at 129. Mild hypokalemia. Normal renal function. Hypotension persists and on Levophed 25% albumin added along with midodrine. Nephrology following for sodium levels. Acute kidney injury with creatinine of 2.5 on admission resolved with normal renal function currently. Urinalysis reflective of UTI on ceftriaxone urine culture with no growth. History of renal cell carcinoma following Dr. john Anaya. Possible left lower extremity cellulitis on ceftriaxone and vancomycin. Anemia of chronic disease hemoglobin stable at 8. Proximal atrial fibrillation rate control on Eliquis. 10/30 continues to make improvement. Levophed has been turned off since this morning. She has been placed on midodrine which will be continued continue to monitor blood pressure. Sodium level improved to 130. Acute kidney injury has resolved. Continue antibiotics for his lower extremity cellulitis. Anemia stable continue to monitor on Eliquis for paroxysmal atrial fibrillation rate controlled. PT OT to evaluate and treat will need rehabilitation discussed with her aspect (3) Hypokalemia: Code(s): E87.6 - Hypokalemia Status: Acute Assessment and Plan: Replace as needed (4) Acute kidney failure, unspecified: Code(s): N17.9 - Acute kidney failure, unspecified Status: Resolved Assessment and Plan: most likely secondary to dehydration patient is gently hydrated will monitor kidney function, has normalized now (5) Pyuria: Code(s): R82.81 - Pyuria Status: Acute Assessment and Plan: so far no growth (6) Cellulitis: Code(s): L03.90 - Cellulitis, unspecified Status: Acute Assessment and Plan: patient is treated ceftriaxone and vancomycin Additional Plan DVT prophylaxis on Eliquis Subjective Date/time seen: 10/30/20 14:31 Interval history: no overnight events. Levophed has been turned off since this morning. Blood pressure has been low normal. She is more awake and conversant today denies any shortness of breath or chest pain. Remains afebrile. at bedside. Discussed with him Review of Systems Review of Systems: All systems reviewed & are unremarkable except as noted in HPI and below Exam Narrative: Exam Narrative: Patient is comfortable, NAD HEENT: eyes are clear and none icteric LUNGS:CTA no respiratory distress HE
--- NOTE | 2020-10-30 15:38 | PCSTNOTE ---
Speech therapist attempted to see patient but she was with nursing. Will try again late if possible.
--- NOTE | 2020-10-30 16:17 | P.PNNP_ITS ---
Progress Note: A&P Assessment and Plan (1) Hyponatremia: Code(s): E87.1 - Hypo-osmolality and hyponatremia Status: Acute Assessment and Plan: * suspect this is more of a chronic issue than acute * multifactorial etiology: - cancer/malignancy - on SSRI (zoloft) - on thiazide diuretic (chlorthalidone) - poor oral intake - tramadol use (pain) * evaluation to date: - CT brain is negative - serum and urine osmolality are pending - TSH is slightly high - probably not contributory - cortisol is very low - will check Cortrosyn stim test when a bit more stable * sodium level improving -- seems to be improving at of appropriate rate * IVFs stopped due to concerns of volume overload * when oral intake improves, then can institute an official fluid restriction (although with her poor oral intake, not sure helpful this will be) * follow trend of sodium (2) Hypokalemia: Code(s): E87.6 - Hypokalemia Status: Acute Assessment and Plan: * suspect total body potassium depleted state * replace as needed * follow magnesium (3) Acute kidney failure, unspecified: Code(s): N17.9 - Acute kidney failure, unspecified Status: Resolved Assessment and Plan: * resolved/resolving * due to hypotension/hemodynamic instability and prerenal factors * evaluation to date: - renal ultrasound shows normal single kidney - urine electrolytes are pre renal - urine eosinophils are negative - urinalysis shows infection/inflammation (but culture negative) * follow trend of repeat labs (4) Shock: Code(s): R57.9 - Shock, unspecified Status: Acute Assessment and Plan: * off pressor therapy * on midodrine * IV albumin PRN * follow hemodynamics (5) Metastatic renal cell carcinoma: Code(s): C64.9 - Malignant neoplasm of unspecified kidney, except renal pelvis Status: Chronic Assessment and Plan: * Dr. 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 Subjective Date/time seen: 10/30/20 16:17 Off vasopressor therapy at this time with relative stability in blood pressure readings; mentation seems to be doing somewhat better as well; not very motivated in terms on ambulation/mobility/oral intake; no acute issues/events overnight or earlier this AM. Exam Narrative: Exam Narrative: General: WD/WN female in NAD Heart: normal S1 and S2; no rub Lungs: clear to auscultation Abdomen: soft, nontender, nondistended, positive bowel sounds Extremities: no cyanosis or clubbing; no edema Skin: no rash or nodules Objective Data Vital Signs Vital Signs: Vital Signs Temp Pulse Resp BP Pulse Ox 10/30/20 16:00 93 32 H 96/54 L 97 10/30/20 14:00 36.8 C 95 32 H 94/54 L 98 10/30/20 12:00 106 H 33 H 92/54 L 100 10/30/20 10:00 99 25 H 92/52 L 100 10/30/20 08:00 102 H 28 H 92/71 L 100 10/30/20 06:51 106 H 109/66 10/30/20 05:54 104 H 27 H 107/53 L 100 10/30/20 04:00 37.2 C 105 H 28 H 98/53 L 98 10/30/20 02:00 105 H 24 H 104/51 L 98 10/30/20 00:00 37.3 C 101 H 24 H 107/87 98 10/29/20 23:18 100 75/63 L 07
--- NOTE | 2020-10-30 16:17 | PM.PNNEP ---
Progress Note: A&P Assessment and Plan (1) Hyponatremia: Code(s): E87.1 - Hypo-osmolality and hyponatremia Status: Acute Assessment and Plan: suspect this is more of a chronic issue than acute multifactorial etiology: - cancer/malignancy - on SSRI (zoloft) - on thiazide diuretic (chlorthalidone) - poor oral intake - tramadol use (pain) evaluation to date: - CT brain is negative - serum and urine osmolality are pending - TSH is slightly high - probably not contributory - cortisol is very low - will check Cortrosyn stim test when a bit more stable sodium level improving -- seems to be improving at of appropriate rate IVFs stopped due to concerns of volume overload when oral intake improves, then can institute an official fluid restriction (although with her poor oral intake, not sure helpful this will be) follow trend of sodium (2) Hypokalemia: Code(s): E87.6 - Hypokalemia Status: Acute Assessment and Plan: suspect total body potassium depleted state replace as needed follow magnesium (3) Acute kidney failure, unspecified: Code(s): N17.9 - Acute kidney failure, unspecified Status: Resolved Assessment and Plan: resolved/resolving due to hypotension/hemodynamic instability and prerenal factors evaluation to date: - renal ultrasound shows normal single kidney - urine electrolytes are pre renal - urine eosinophils are negative - urinalysis shows infection/inflammation (but culture negative) follow trend of repeat labs (4) Shock: Code(s): R57.9 - Shock, unspecified Status: Acute Assessment and Plan: off pressor therapy on midodrine IV albumin PRN follow hemodynamics (5) Metastatic renal cell carcinoma: Code(s): C64.9 - Malignant neoplasm of unspecified kidney, except renal pelvis Status: Chronic Assessment and Plan: Dr. Marshall follows this as an outpatient assisted prognosis(?) Will continue to follow. Subjective Date/time seen: 10/30/20 16:17 Off vasopressor therapy at this time with relative stability in blood pressure readings; mentation seems to be doing somewhat better as well; not very motivated in terms on ambulation/mobility/oral intake; no acute issues/events overnight or earlier this AM. Exam Narrative: Exam Narrative: General: WD/WN female in NAD Heart: normal S1 and S2; no rub Lungs: clear to auscultation Abdomen: soft, nontender, nondistended, positive bowel sounds Extremities: no cyanosis or clubbing; no edema Skin: no rash or nodules Objective Data Vital Signs Vital Signs: Vital Signs Temp Pulse Resp BP Pulse Ox 10/30/20 16:00 93 32 H 96/54 L 97 10/30/20 14:00 36.8 C 95 32 H 94/54 L 98 10/30/20 12:00 106 H 33 H 92/54 L 100 10/30/20 10:00 99 25 H 92/52 L 100 10/30/20 08:00 102 H 28 H 92/71 L 100 10/30/20 06:51 106 H 109/66 10/30/20 05:54 104 H 27 H 107/53 L 100 10/30/20 04:00 37.2 C 105 H 28 H 98/53 L 98 10/30/20 02:00 105 H 24 H 104/51 L 98 10/30/20 00:00 37.3 C 101 H 24 H 107/87 98 10/29/20 23:18 100 75/63 L 10/29/20 22:00 104 H 24 H 96/51 L 97 10/29/20 20:00 36.6 C 100 28 H 89/49 L 98 10/29/20 18:00 98 26 H 81/62 L 98 Intake/Output Intake/Output: Intake & Output 10/27/20 10/28/20 10/29/20 10/30/20 23:59 23:59 23:59 23:59 Intake Total 4890 3440 4158 2275 Output Total 1850 1200 3000 950 Balance 3040 2240 1158 1325 Meds/Results Medications: Active Medications Generic Name Dose Route Start Last Admin Trade Name Zachq PRN Reason Stop Dose Admin Acetaminophen 650 mg 10/25/20 13:10 10/28/20 10:07 Acetaminophen 325 Mg Tablet PO 650 mg Q4H PRN Administration
[2020-10-31] VITALS (20 sets, daily range): BP systolic 96–129; BP diastolic 38–73; PULSE 92–107; RESP 18–34; TEMP 36–38.4; O2SAT 88–97; BMI 10.0
[2020-10-31] MEDS: IPRATROPIUM BR 0.02% INH SOLN 0.5 MG/2.5 ML VIAL INHALATION ×4 (00:34→20:45)
[2020-10-31] MEDS: ALBUTEROL SULFATE NEB 2.5 MG/0.5 ML INH INHALATION ×4 (00:34→20:45)
[2020-10-31] MEDS: CENTRAL LINE FLUSH 10 ML IV PUSH ×2 (04:59→16:37)
[2020-10-31] MEDS: CIPROFLOXACIN HCL 0.3% OP SOLN 2.5 ML BTL 1 DROP EACH EYE ×7 (04:59→22:33)
[2020-10-31] MEDS: ALBUMIN HUMAN 25% 25 GM/100 ML 100 ML IVPB ×3 (05:00→18:08)
[2020-10-31 05:19] LABS: Basophils Absolute Auto 0.1 K/mm3 (0.0-0.1); Basophils Percent Auto 1.8 % (0.2-1.2); Eosinophils Absolute Auto 0.6 K/mm3 (0-0.3); Hematocrit 24.9 % (37.0-47.0); Hemoglobin 7.9 g/dL (12.0-15.0); Immature Granulocyte Absolute 0.06 K/mm3 (0.00-0.031); Lymphocytes Absolute Auto 1.04 K/mm3 (0.9-3.2); Lymphocytes Percent Auto 17.4 % (18.3-44.2); Mean Corpuscular HGB Conc 31.7 g/dl (32-36); Mean Corpuscular Hemoglobin 30.4 pg (26-34); Mean Corpuscular Volume 95.8 fl (80-100); Mean Platelet Volume 9.5 fl (7.4-10.4); Monocytes Absolute Auto 0.7 K/mm3 (0.1-0.6); Monocytes Percent Auto 11.7 % (2.6-8.5); Neutrophils Absolute Auto 3.5 K/mm3 (1.3-6.7); Neutrophils Percent Auto 58.1 % (45.5-73.1); Platelet Count Result 180 k/mm3 (150-375); Red Cell Distribution Width 16.3 % (11.5-14.5)
[2020-10-31 05:30] LABS: Alanine Aminotransferase 11 U/L (4-35); Albumin Level 2.9 g/dL (3.5-5.1); Alkaline Phosphatase 97 U/L (38-126); Anion Gap 8 mmol/L (8-16); Aspartate Amino Transferase 37 U/L (14-36); Bilirubin,Total 1.2 mg/dL (0.2-1.3); Calcium 7.1 mg/dL (8.4-10.2); Carbon Dioxide 20 mmol/L (22-30); Chloride 101 mmol/L (98-107); Estimated CRCL calculation 71 ml/min; Estimated Glomerular Filt Rate > 60; Glucose 97 mg/dL (65-105); Magnesium 1.7 mg/dL (1.6-2.3); Phosphorus 2.5 mg/dL (2.5-4.5); Potassium 3.2 mmol/L (3.4-5.0); Sodium 129 mmol/L (137-145)
[2020-10-31 05:40] LABS: Blood Urea Nitrogen < 2 mg/dL (7-17)
[2020-10-31] MEDS: CALCIUM GLUC 2,000 MG/NS 100ML 2,000 MG/100 ML BAG 100 MG IVPB (08:12)
[2020-10-31] MEDS: MAGNESIUM SULF 2 GM/WATER 50ML 2 GM/50 ML BAG IVPB (08:12)
[2020-10-31] MEDS: EPOETIN ALFA-EPBX 10,000 UNITS/ML VIAL 10000 UNITS SUB-Q (08:25)
[2020-10-31] MEDS: MICONAZOLE NITRATE 2% CREAM 30 GM TUBE 1 APPLIC TOPICAL ×2 (08:25→19:35)
[2020-10-31] MEDS: APIXABAN 2.5 MG TABLET PO ×2 (08:26→16:38)
[2020-10-31] MEDS: LEVOTHYROXINE SODIUM 125 MCG TABLET PO (08:27)
[2020-10-31] MEDS: buPROPion HCL 75 MG TABLET PO (08:28)
[2020-10-31] MEDS: POTASSIUM CHLORIDE 20 MEQ PACKET (FOR LIQUID) 40 MEQ PO (08:37)
--- NOTE | 2020-10-31 09:26 | WPDINTPN ---
Progress Note: A&P Assessment and Plan (1) Shock: Code(s): R57.9 - Shock, unspecified Status: Acute Assessment and Plan: Levophed was turned10/30. patient has remained off of Levophed since then - patient is overall volume overloaded hence off of all IV fluids at this time - continue 25% albumin for now - continue Midodrine (2) Hyponatremia: Code(s): E87.1 - Hypo-osmolality and hyponatremia Status: Acute Assessment and Plan: severe acute hyponatremia which could be the cause of generalized weakness along with altered mental status. Multifactorial could be medications, decreased p.o. intake, underlying malignancy - patient was given 2-3 L of IV fluids in the ER - patient also got 3% saline on 10/25/2020 - initial sodium level was 109, - sodium levels have normalized now in are stable - nephrology monitoring and managing the sodium levels (3) Hypokalemia: Code(s): E87.6 - Hypokalemia Status: Acute Assessment and Plan: additional replacement ordered (4) Acute kidney failure, unspecified: Code(s): N17.9 - Acute kidney failure, unspecified Status: Resolved Assessment and Plan: acute kidney injury could be multifactorial hypotension, medication/chemotherapy related, decreased p.o. intake, UTI/infection/sepsis. Creatinine 2.5 on admission - patient received 2-3 L IV fluid bolus and over the course her renal function has normalized - will monitor urine output, renal function and electrolytes (5) Pyuria: Code(s): R82.81 - Pyuria Status: Acute Assessment and Plan: urinalysis reflective of a UTI given pyuria - on ceftriaxone - 10/25/2020: urine culture - no growth - DC vancomycin (6) Metastatic renal cell carcinoma: Code(s): C64.9 - Malignant neoplasm of unspecified kidney, except renal pelvis Status: Chronic Assessment and Plan: patient had a renal cell carcinoma and had left radical nephrectomy in 2016. Post that she received chemo and radiation for recurrent. Currently she follows with at [facility] in [facility]. Early this year she was found to be having a lytic lesion in her hip which led to a fracture for which she had the hip surgery in September. She is supposed to start on a new chemotherapy drug Fotivda but has not taken it yet. As per she also has a spot in the liver and pancreas I do not have records on that information. - 10/25/2020: Renal ultrasound normal right kidney, absent left kidney (7) Cellulitis: Code(s): L03.90 - Cellulitis, unspecified Status: Acute Assessment and Plan: possible left lower extremity cellulitis - continue ceftriaxone but will discontinue vancomycin as all cultures have been negative - 10/25/2020:venous Dopplers Bilateral lower extremity - negative for DVT (8) Anemia: Code(s): D64.9 - Anemia, unspecified Status: Acute Assessment and Plan: - patient has history of anemia of chronic disease - hemoglobin is stable level (9) CKD (chronic kidney disease), stage III: Code(s): N18.3 - Chronic kidney disease, stage 3 (moderate) Status: Acute Assessment and Plan: patient has a history of chronic kidney disease stage 3 - continue to monitor urine output, electrolytes and renal function (10) PAF (paroxysmal atrial fibrillation): Code(s): I48.0 - Paroxysmal atrial fibrillation Status: Acute Assessment and Plan: history of proximal AFib, on Eliquis at home, - currently rate controlled - continue Eliquis (11) DVT prophylaxis: Code(s): Z29.9 - Encounter for prophylactic measures, unspecified Status: Acute Assessment and Plan: on Eliquis (12) Hypothyroidism: Code(s): E03.9 - Hypothyroidism, unspecified Status: Acute Assessment and Plan: restarted levothyroxine (13) Physical deconditioning:
[2020-10-31] MEDS: ACETAMINOPHEN 325 MG TABLET 650 MG PO ×2 (10:02→22:35)
[2020-10-31] MEDS: FUROSEMIDE INJ 40 MG/4 ML VIAL 20 MG IV PUSH (10:06)
[2020-10-31] MEDS: MIDODRINE HCL 2.5 MG TABLET 5 MG PO ×2 (12:36→16:38)
--- NOTE | 2020-10-31 16:24 | PM.PNNEP ---
Progress Note: A&P Assessment and Plan (1) Hyponatremia: Code(s): E87.1 - Hypo-osmolality and hyponatremia Status: Acute Assessment and Plan: suspect this is more of a chronic issue than acute multifactorial etiology: - cancer/malignancy - on SSRI (zoloft) - on thiazide diuretic (chlorthalidone) - poor oral intake - tramadol use (pain) evaluation to date: - CT brain is negative - serum and urine osmolality are pending - TSH is slightly high - probably not contributory - cortisol is very low - will check Cortrosyn stim test when a bit more stable sodium level improving -- seems to be improving at of appropriate rate off IVFs -- agree with PRN diuresis (and this may help sodium level as well) when oral intake improves, consider instituting fluid restriction (although with her poor oral intake, not sure helpful this will be) follow trend of sodium (2) Hypokalemia: Code(s): E87.6 - Hypokalemia Status: Acute Assessment and Plan: suspect total body potassium depleted state replace as needed follow magnesium (3) Acute kidney failure, unspecified: Code(s): N17.9 - Acute kidney failure, unspecified Status: Resolved Assessment and Plan: resolved/resolving due to hypotension/hemodynamic instability and prerenal factors evaluation to date: - renal ultrasound shows normal single kidney - urine electrolytes are pre renal - urine eosinophils are negative - urinalysis shows infection/inflammation (but culture negative) follow trend of repeat labs (4) Shock: Code(s): R57.9 - Shock, unspecified Status: Acute Assessment and Plan: off pressor therapy on midodrine IV albumin PRN follow hemodynamics (5) Metastatic renal cell carcinoma: Code(s): C64.9 - Malignant neoplasm of unspecified kidney, except renal pelvis Status: Chronic Assessment and Plan: 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 Subjective Date/time seen: 10/31/20 16:24 No new issues or problems to report; no apparent distress voiced; remains hemodynamically stable off pressors (using midodrine and IV albumin to maintain blood pressure); no other complaints to report at the time of my visit. Exam Narrative: Exam Narrative: General: WD/WN female in NAD Heart: normal S1 and S2; no rub Lungs: clear to auscultation Abdomen: soft, nontender, nondistended, positive bowel sounds Extremities: no cyanosis or clubbing; no edema Skin: warm and dry Objective Data Vital Signs Vital Signs: Vital Signs Temp Pulse Resp BP Pulse Ox 10/31/20 16:00 36.8 C 103 H 18 97/59 L 95 10/31/20 13:40 102 H 29 H 10/31/20 13:29 105 H 24 H 10/31/20 12:00 36.2 C L 106 H 22 H 96/66 L 95 10/31/20 10:00 36.7 C 107 H 21 H 96/38 L 94 10/31/20 08:03 104 H 22 H 93 10/31/20 08:00 36.6 C 104 H 22 H 120/56 L 94 10/31/20 07:54 105 H 24 H 88 L 10/31/20 06:00 101 H 29 H 129/62 92 10/31/20 05:00 37.2 C 105 H 29 H 129/73 92 10/31/20 03:16 102 H 21 H 90 10/31/20 02:00 102 H 21 H 121/70 90 10/31/20 00:43 100 34 H 10/31/20 00:36 103 H 31 H 10/30/20 23:54 98 27 H 96/59 L 93 10/30/20 23:37 92 10/30/20 23:01 96 24 H 92 10/30/20 22:00 37.0 C 96 24 H 97/62 L 92 10/30/20 20:00 37.4 C 96 22 H 117/89 93 Intake/Output Intake/Output: Intake & Output 10/28/20 10/29/20 10/30/20 10/31/20 23:59 23:59 23:59 23:59 Intake Total 3440 4158 3025 736 Output Total 1200 3000 1500 2775 Balance 2246 3305 8980 -6099 Meds/Results Medications: Active Medications Generic Name Dose Route Start Last Admin Trade Name Freq PRN Reason Stop D
--- NOTE | 2020-10-31 16:24 | P.PNNP_ITS ---
Progress Note: A&P Assessment and Plan (1) Hyponatremia: Code(s): E87.1 - Hypo-osmolality and hyponatremia Status: Acute Assessment and Plan: * suspect this is more of a chronic issue than acute * multifactorial etiology: - cancer/malignancy - on SSRI (zoloft) - on thiazide diuretic (chlorthalidone) - poor oral intake - tramadol use (pain) * evaluation to date: - CT brain is negative - serum and urine osmolality are pending - TSH is slightly high - probably not contributory - cortisol is very low - will check Cortrosyn stim test when a bit more stable * sodium level improving -- seems to be improving at of appropriate rate * off IVFs -- agree with PRN diuresis (and this may help sodium level as well) * when oral intake improves, consider instituting fluid restriction (although with her poor oral intake, not sure helpful this will be) * follow trend of sodium (2) Hypokalemia: Code(s): E87.6 - Hypokalemia Status: Acute Assessment and Plan: * suspect total body potassium depleted state * replace as needed * follow magnesium (3) Acute kidney failure, unspecified: Code(s): N17.9 - Acute kidney failure, unspecified Status: Resolved Assessment and Plan: * resolved/resolving * due to hypotension/hemodynamic instability and prerenal factors * evaluation to date: - renal ultrasound shows normal single kidney - urine electrolytes are pre renal - urine eosinophils are negative - urinalysis shows infection/inflammation (but culture negative) * follow trend of repeat labs (4) Shock: Code(s): R57.9 - Shock, unspecified Status: Acute Assessment and Plan: * off pressor therapy * on midodrine * IV albumin PRN * follow hemodynamics (5) Metastatic renal cell carcinoma: Code(s): C64.9 - Malignant neoplasm of unspecified kidney, except renal pelvis Status: Chronic Assessment and Plan: * Dr. Marshall follows this as an outpatient * assisted prognosis(?) Will continue to follow. Subjective Date/time seen: 10/31/20 16:24 No new issues or problems to report; no apparent distress voiced; remains hemodynamically stable off pressors (using midodrine and IV albumin to maintain blood pressure); no other complaints to report at the time of my visit. Exam Narrative: Exam Narrative: General: WD/WN female in NAD Heart: normal S1 and S2; no rub Lungs: clear to auscultation Abdomen: soft, nontender, nondistended, positive bowel sounds Extremities: no cyanosis or clubbing; no edema Skin: warm and dry Objective Data Vital Signs Vital Signs: Vital Signs Temp Pulse Resp BP Pulse Ox 10/31/20 16:00 36.8 C 103 H 18 97/59 L 95 10/31/20 13:40 102 H 29 H 10/31/20 13:29 105 H 24 H 10/31/20 12:00 36.2 C L 106 H 22 H 96/66 L 95 10/31/20 10:00 36.7 C 107 H 21 H 96/38 L 94 10/31/20 08:03 104 H 22 H 93 10/31/20 08:00 36.6 C 104 H 22 H 120/56 L 94 10/31/20 07:54 105 H 24 H 88 L 10/31/20 06:00 101 H 29 H 129/62 92 10/31/20 05:00 37.2 C 105 H 29 H 129/73 92 10/31/20 03:16 102 H 21 H 90 10/31/20 02:00 102 H 21 H 121/
[2020-10-31] MEDS: ONDANSETRON INJ 4 MG/2 ML VIAL IV PUSH (19:37)
[2020-11-01] VITALS (16 sets, daily range): BP systolic 86–103; BP diastolic 48–70; PULSE 92–107; RESP 14–30; TEMP 36.4–37.4; O2SAT 90–99; BMI 10.0
[2020-11-01] MEDS: ALBUMIN HUMAN 25% 25 GM/100 ML 100 ML IVPB ×4 (00:51→21:10)
[2020-11-01] MEDS: CIPROFLOXACIN HCL 0.3% OP SOLN 2.5 ML BTL 1 DROP EACH EYE ×9 (00:52→22:55)
[2020-11-01] MEDS: ONDANSETRON INJ 4 MG/2 ML VIAL IV PUSH (01:19)
[2020-11-01] MEDS: IPRATROPIUM BR 0.02% INH SOLN 0.5 MG/2.5 ML VIAL INHALATION ×4 (03:13→18:47)
[2020-11-01] MEDS: ALBUTEROL SULFATE NEB 2.5 MG/0.5 ML INH INHALATION ×4 (03:14→18:47)
[2020-11-01] MEDS: CENTRAL LINE FLUSH 10 ML IV PUSH ×4 (06:57→20:17)
[2020-11-01 07:07] LABS: Alanine Aminotransferase 11 U/L (4-35); Albumin Level 3.2 g/dL (3.5-5.1); Alkaline Phosphatase 92 U/L (38-126); Anion Gap 11 mmol/L (8-16); Aspartate Amino Transferase 39 U/L (14-36); Bilirubin,Total 1.4 mg/dL (0.2-1.3); Calcium 7.5 mg/dL (8.4-10.2); Carbon Dioxide 21 mmol/L (22-30); Chloride 99 mmol/L (98-107); Estimated CRCL calculation 58 ml/min; Estimated Glomerular Filt Rate 55; Glucose 99 mg/dL (65-105); Magnesium 1.6 mg/dL (1.6-2.3); Phosphorus 2.4 mg/dL (2.5-4.5); Potassium 2.9 mmol/L (3.4-5.0); Sodium 131 mmol/L (137-145)
[2020-11-01 07:44] LABS: Blood Urea Nitrogen < 2 mg/dL (7-17)
--- NOTE | 2020-11-01 08:49 | PCSTNOTE ---
Attempted to see the patient. Patient was receiving a breathing treatment and was unable to be seen upon ST arrival.
[2020-11-01] MEDS: APIXABAN 2.5 MG TABLET PO ×2 (08:56→19:32)
[2020-11-01] MEDS: LEVOTHYROXINE SODIUM 125 MCG TABLET PO (08:56)
[2020-11-01] MEDS: MICONAZOLE NITRATE 2% CREAM 30 GM TUBE 1 APPLIC TOPICAL ×2 (08:57→20:17)
[2020-11-01] MEDS: buPROPion HCL 75 MG TABLET PO ×2 (08:57→22:55)
[2020-11-01] MEDS: MIDODRINE HCL 2.5 MG TABLET 5 MG PO ×3 (08:57→19:34)
[2020-11-01] MEDS: ACETAMINOPHEN 325 MG TABLET 650 MG PO ×2 (10:30→19:34)
--- NOTE | 2020-11-01 10:43 | PCDIET ---
Dietitian Screen for LOS. Patient remains on a Heart Healthy/Minced and Moist, Level 5 diet with Ensure Enlive TID. Spoke with patient and today at breakfast. was feeding patient. Intake has improved with encouragement. Discussed other diet supplements, would like to continue the Ensure Enlive chocolate which is providing an additional 350 kcals and 20 gms protein. Agree with diet orders. PO intake is encouraged. No further nutritional interventions at this time.
[2020-11-01 13:16] LABS: Basophils Absolute Auto 0.1 K/mm3 (0.0-0.1); Basophils Percent Auto 1.3 % (0.2-1.2); Eosinophils Absolute Auto 0.6 K/mm3 (0-0.3); Eosinophils Percent Auto 7.9 % (0-4.4); Immature Granulocyte Absolute 0.06 K/mm3 (0.00-0.031); Immature Granulocyte Percent A 0.8 % (0-0.5); Lymphocytes Absolute Auto 1.01 K/mm3 (0.9-3.2); Lymphocytes Percent Auto 14.1 % (18.3-44.2); Mean Corpuscular HGB Conc 30.8 g/dl (32-36); Mean Corpuscular Hemoglobin 30.3 pg (26-34); Mean Corpuscular Volume 98.5 fl (80-100); Mean Platelet Volume 9.4 fl (7.4-10.4); Monocytes Absolute Auto 0.6 K/mm3 (0.1-0.6); Monocytes Percent Auto 8.9 % (2.6-8.5); Neutrophils Absolute Auto 4.8 K/mm3 (1.3-6.7); Platelet Count Result 201 k/mm3 (150-375); Red Blood Count 2.64 M/mm3 (4.2-5.4); Red Cell Distribution Width 16.7 % (11.5-14.5); White Blood Count 7.2 K/mm3 (4.5-10.0)
--- NOTE | 2020-11-01 13:23 | PC.NURSE ---
Patient transferred via bed at 1323 from ICU to [address] [place] [address].
--- NOTE | 2020-11-01 13:35 | PC.NURSE ---
Right Port dressing is dated for 10/27/2020. Does not need to be changed until 11/03/2020
--- NOTE | 2020-11-01 13:37 | PC.NURSE ---
This patient, Yaneth Osbonre, was transferred to [facility] on 11/01/20 at 1330. Personal belongings sent with patient. Report given to Kristen CHURCH. Appropriate documentation sent with patient.
--- NOTE | 2020-11-01 13:54 | P.PNNP_ITS ---
Progress Note: A&P Assessment and Plan (1) Hyponatremia: Code(s): E87.1 - Hypo-osmolality and hyponatremia Status: Acute Assessment and Plan: * suspect this is more of a chronic issue than acute * multifactorial etiology: - cancer/malignancy - on SSRI (zoloft) - on thiazide diuretic (chlorthalidone) - poor oral intake - tramadol use (pain) * evaluation to date: - CT brain is negative - serum and urine osmolality are pending - TSH is slightly high - probably not contributory - cortisol is very low - consider Cortrosyn stim test * sodium level improving -- seems to be improving at of appropriate rate * off IVFs -- agree with PRN diuresis (and this may help sodium level as well) * when oral intake improves, consider instituting fluid restriction (although with her poor oral intake, not sure helpful this will be) * follow trend of sodium (2) Hypokalemia: Code(s): E87.6 - Hypokalemia Status: Acute Assessment and Plan: * suspect total body potassium depleted state * replace as needed * follow magnesium (3) Acute kidney failure, unspecified: Code(s): N17.9 - Acute kidney failure, unspecified Status: Resolved Assessment and Plan: * resolved/resolving * due to hypotension/hemodynamic instability and prerenal factors * evaluation to date: - renal ultrasound shows normal single kidney - urine electrolytes are pre renal - urine eosinophils are negative - urinalysis shows infection/inflammation (but culture negative) * follow trend of repeat labs (4) Shock: Code(s): R57.9 - Shock, unspecified Status: Acute Assessment and Plan: * off pressor therapy * on midodrine * IV albumin PRN * follow hemodynamics (5) Metastatic renal cell carcinoma: Code(s): C64.9 - Malignant neoplasm of unspecified kidney, except renal pelvis Status: Chronic Assessment and Plan: * Dr. 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 Subjective Date/time seen: 11/01/20 13:54 Transfered out of the ICU; sodium remains relatively stable at this time (I question if it will ever be normal given her known malignancy); mentation seems to still fluctuate in general; no issues/problems overnight or earlier this AM. Exam Narrative: Exam Narrative: General: WD/WN female in NAD Heart: normal S1 and S2; no rub Lungs: clear to auscultation Abdomen: soft, nontender, nondistended, positive bowel sounds Extremities: no cyanosis or clubbing; no edema Skin: warm and intact Objective Data Vital Signs Vital Signs: Vital Signs Temp Pulse Resp BP Pulse Ox 11/01/20 13:56 36.4 C L 92 14 98/54 L 98 11/01/20 12:00 36.9 C 107 H 24 H 103/56 L 92 11/01/20 08:47 104 H 17 11/01/20 08:42 105 H 93 11/01/20 08:40 105 H 21 H 11/01/20 08:00 37.0 C 102 H 26 H 93/70 L 94 11/01/20 04:00 37.4 C 102 H 24 H 86/53 L 91 11/01/20 03:14 102 H 30 H 11/01/20 00:00 104 H 23 H 87/48 L 94 10/31/20 23:35 37.6 C 10/31/20 22:35 38.4 C H 10/31/20 20:52 101 H 27 H 10/31/20 20:49 104 H 94
--- NOTE | 2020-11-01 13:54 | PM.PNNEP ---
Progress Note: A&P Assessment and Plan (1) Hyponatremia: Code(s): E87.1 - Hypo-osmolality and hyponatremia Status: Acute Assessment and Plan: suspect this is more of a chronic issue than acute multifactorial etiology: - cancer/malignancy - on SSRI (zoloft) - on thiazide diuretic (chlorthalidone) - poor oral intake - tramadol use (pain) evaluation to date: - CT brain is negative - serum and urine osmolality are pending - TSH is slightly high - probably not contributory - cortisol is very low - consider Cortrosyn stim test sodium level improving -- seems to be improving at of appropriate rate off IVFs -- agree with PRN diuresis (and this may help sodium level as well) when oral intake improves, consider instituting fluid restriction (although with her poor oral intake, not sure helpful this will be) follow trend of sodium (2) Hypokalemia: Code(s): E87.6 - Hypokalemia Status: Acute Assessment and Plan: suspect total body potassium depleted state replace as needed follow magnesium (3) Acute kidney failure, unspecified: Code(s): N17.9 - Acute kidney failure, unspecified Status: Resolved Assessment and Plan: resolved/resolving due to hypotension/hemodynamic instability and prerenal factors evaluation to date: - renal ultrasound shows normal single kidney - urine electrolytes are pre renal - urine eosinophils are negative - urinalysis shows infection/inflammation (but culture negative) follow trend of repeat labs (4) Shock: Code(s): R57.9 - Shock, unspecified Status: Acute Assessment and Plan: off pressor therapy on midodrine IV albumin PRN follow hemodynamics (5) Metastatic renal cell carcinoma: Code(s): C64.9 - Malignant neoplasm of unspecified kidney, except renal pelvis Status: Chronic Assessment and Plan: Dr. Marshall follows this as an outpatient ferry terminal supervisor prognosis(?) Will continue to follow. Subjective Date/time seen: 11/01/20 13:54 Transfered out of the ICU; sodium remains relatively stable at this time (I question if it will ever be normal given her known malignancy); mentation seems to still fluctuate in general; no issues/problems overnight or earlier this AM. Exam Narrative: Exam Narrative: General: WD/WN female in NAD Heart: normal S1 and S2; no rub Lungs: clear to auscultation Abdomen: soft, nontender, nondistended, positive bowel sounds Extremities: no cyanosis or clubbing; no edema Skin: warm and intact Objective Data Vital Signs Vital Signs: Vital Signs Temp Pulse Resp BP Pulse Ox 11/01/20 13:56 36.4 C L 92 14 98/54 L 98 11/01/20 12:00 36.9 C 107 H 24 H 103/56 L 92 11/01/20 08:47 104 H 17 11/01/20 08:42 105 H 93 11/01/20 08:40 105 H 21 H 11/01/20 08:00 37.0 C 102 H 26 H 93/70 L 94 11/01/20 04:00 37.4 C 102 H 24 H 86/53 L 91 11/01/20 03:14 102 H 30 H 11/01/20 00:00 104 H 23 H 87/48 L 94 10/31/20 23:35 37.6 C 10/31/20 22:35 38.4 C H 10/31/20 20:52 101 H 27 H 10/31/20 20:49 104 H 94 10/31/20 20:45 102 H 30 H 10/31/20 20:00 36.0 C L 105 H 28 H 117/58 L 93 10/31/20 16:00 36.8 C 103 H 18 97/59 L 95 Intake/Output Intake/Output: Intake & Output 10/29/20 10/30/20 10/31/20 11/01/20 23:59 23:59 23:59 23:59 Intake Total 4158 3025 836 440 Output Total 3000 1500 2775 450 Balance 1158 1525 -1939 -10 Meds/Results Medications: Active Medications Generic Name Dose Route Start Last Admin Trade Name Freq PRN Reason Stop Dose Admin Acetaminophen 650 mg 10/25/20 13:10 11/01/20 10:30 Acetaminophen 325 Mg Tablet PO 650 mg Q4H PRN Administration Mild Pain (1-3)
[2020-11-01 16:04] LABS: Add Urine Microscopic? YES; Appearance Urine Clear (Clear); Bacteria Urine Trace /hpf; Bilirubin Urine Negative (Negative); Blood Urine 2+ (Negative); Color Urine Yellow (Yellow); Glucose Urine UA Negative (Negative); Ketones Urine Negative (Negative); Leukocyte Esterase Ur 1+ LEU/UL (NEGATIVE); Mucus Urine Rare /lpf; Nitrate Urine Negative (Negative); Protein Urine 1+ mg/dL (Negative); RBC Urine 21-50 /hpf (0-2); Specific Grav Ur 1.013 (1.001-1.035); Urobilinogen Urine Negative mg/dL (<2.0); WBC Urine 16-20 /hpf (0-3)
--- NOTE | 2020-11-01 17:32 | PM.IMPN ---
Progress Note: A&P Assessment and Plan (1) Shock: Code(s): R57.9 - Shock, unspecified Status: Acute Assessment and Plan: most likely secondary to hypovolemic secondary dehydration as her symptoms improved with hydration No more congested not tolerated IV Lasix (2) Hyponatremia: Code(s): E87.1 - Hypo-osmolality and hyponatremia Status: Acute Assessment and Plan: patient is 70-year-old female was in retirement for rehab and fell and patient was brought emergency department for further evaluation upon arrival patient was confused and was found to have profound hyponatremia with sodium of 109, suspect most likely secondary dehydration as patient had not been taking p.o. at the retirement for her , patient appears anasarca, most likely patient 3rd spacing and depleted intravascular volume, patient was given 1 L of bolus emergency depart, patient seen by Nephrology and placed on normal saline and 125cc an hour, her sodium slightly trending up, patient herself still quite somnolent and confused unable to provide any review of symptom, is present in the room did provide history, patient is in ICU seen by pot firer and patient support representative and appreciate. 10/28 today patient is more alert and communicative and have been sodium have trended up to 126 compared to 109 upon arrival, patient is been hydrate and rest 3% saline and seen by Nephrology as well as intensive, patient clinical symptoms are improving may transfer patient out of ICU possibly tomorrow will continue to monitor, appreciate patient support representative and Harbor Tug Captain. 10/29 sodium level at 129. Mild hypokalemia. Normal renal function. Hypotension persists and on Levophed 25% albumin added along with midodrine. Nephrology following for sodium levels. Acute kidney injury with creatinine of 2.5 on admission resolved with normal renal function currently. Urinalysis reflective of UTI on ceftriaxone urine culture with no growth. History of renal cell carcinoma following Dr. Velasco. Possible left lower extremity cellulitis on ceftriaxone and vancomycin. Anemia of chronic disease hemoglobin stable at 8. Proximal atrial fibrillation rate control on Eliquis. 10/30 continues to make improvement. Levophed has been turned off since this morning. She has been placed on midodrine which will be continued continue to monitor blood pressure. Sodium level improved to 130. Acute kidney injury has resolved. Continue antibiotics for his lower extremity cellulitis. Anemia stable continue to monitor on Eliquis for paroxysmal atrial fibrillation rate controlled. PT OT to evaluate and treat will need rehabilitation discussed with her aspect 10/31 since some more with more confused today likely from her congestive heart failure. Given a dose of Lasix yesterday with blood pressure doing in 80s will hold off any need further diuresis today. Continue albuterol inhaler /nebulization. Also continue albumin infusion as ordered. PT OT to continue to evaluate and treat. Fever spike yesterday with panculture. Check UA and urine culture currently on ceftriaxone. Urine so some RBCs and WBC will send for urine culture. Already on ceftriaxone await further culture to switch antibiotic. requesting nerve neurology consultation not sure if there are 1 for this weekend will consult neurology. Replace potassium (3) Hypokalemia: Code(s): E87.6 - Hypokalemia Status: Acute Assessment and Plan: Replace as needed (4) Acute kidney failure, unspecified: Code(s): N17.9 - Acute kidney failure, unspecified Status: Resolved Assessment and Plan: most likely secondary to dehydration patient is gently hydrated will monitor kidney function, has normalized now (5) Pyuria: Code(s): R82.81 - Pyuria Status: Acute Assessment and Plan: so far no growth (6) Cellulitis: Code(s): L03.90 - Cellulitis, unspecified S
--- NOTE | 2020-11-01 20:10 | PC.NURSE ---
called pharmacy over 1800 albumin.. was not transferred with pt and was not in either [facility], he said it would come up with a tech at some point this evening.
[2020-11-02] VITALS (16 sets, daily range): BP systolic 91–112; BP diastolic 47–52; PULSE 63–100; RESP 14–20; TEMP 36.4–36.9; O2SAT 91–100
[2020-11-02] MEDS: IPRATROPIUM BR 0.02% INH SOLN 0.5 MG/2.5 ML VIAL INHALATION ×4 (01:18→20:23)
[2020-11-02] MEDS: ALBUTEROL SULFATE NEB 2.5 MG/0.5 ML INH INHALATION ×4 (01:18→20:23)
[2020-11-02] MEDS: CIPROFLOXACIN HCL 0.3% OP SOLN 2.5 ML BTL 1 DROP EACH EYE ×8 (03:13→20:45)
[2020-11-02] MEDS: ALBUMIN HUMAN 25% 25 GM/100 ML 100 ML IVPB ×4 (03:13→20:44)
[2020-11-02 05:08] LABS: Basophils Absolute Auto 0.1 K/mm3 (0.0-0.1); Basophils Percent Auto 1.2 % (0.2-1.2); Eosinophils Absolute Auto 0.4 K/mm3 (0-0.3); Hematocrit 23.5 % (37.0-47.0); Hemoglobin 7.2 g/dL (12.0-15.0); Immature Granulocyte Absolute 0.07 K/mm3 (0.00-0.031); Lymphocytes Absolute Auto 0.91 K/mm3 (0.9-3.2); Lymphocytes Percent Auto 13.6 % (18.3-44.2); Mean Corpuscular HGB Conc 30.6 g/dl (32-36); Mean Corpuscular Hemoglobin 29.8 pg (26-34); Mean Corpuscular Volume 97.1 fl (80-100); Mean Platelet Volume 9.4 fl (7.4-10.4); Monocytes Absolute Auto 0.8 K/mm3 (0.1-0.6); Monocytes Percent Auto 11.5 % (2.6-8.5); Neutrophils Absolute Auto 4.5 K/mm3 (1.3-6.7); Neutrophils Percent Auto 66.7 % (45.5-73.1); Platelet Count Result 187 k/mm3 (150-375); Red Blood Count 2.42 M/mm3 (4.2-5.4); Red Cell Distribution Width 16.6 % (11.5-14.5); White Blood Count 6.7 K/mm3 (4.5-10.0)
[2020-11-02 05:20] LABS: Alanine Aminotransferase 12 U/L (4-35); Albumin Level 3.7 g/dL (3.5-5.1); Alkaline Phosphatase 83 U/L (38-126); Anion Gap 13 mmol/L (8-16); Aspartate Amino Transferase 41 U/L (14-36); Bilirubin,Total 1.5 mg/dL (0.2-1.3); Calcium 7.7 mg/dL (8.4-10.2); Carbon Dioxide 21 mmol/L (22-30); Chloride 93 mmol/L (98-107); Estimated CRCL calculation 64 ml/min; Estimated Glomerular Filt Rate > 60; Glucose 107 mg/dL (65-110); Magnesium 1.5 mg/dL (1.6-2.3); Potassium 2.9 mmol/L (3.4-5.0); Sodium 127 mmol/L (137-145)
[2020-11-02 05:21] LABS: Blood Urea Nitrogen < 2 mg/dL (7-17)
[2020-11-02] MEDS: LEVOTHYROXINE SODIUM 125 MCG TABLET PO (06:20)
[2020-11-02] MEDS: CENTRAL LINE FLUSH 10 ML IV PUSH ×2 (06:20→17:17)
[2020-11-02] MEDS: APIXABAN 2.5 MG TABLET PO ×2 (09:10→17:21)
[2020-11-02] MEDS: buPROPion HCL 75 MG TABLET PO ×2 (09:10→20:45)
[2020-11-02] MEDS: MIDODRINE HCL 2.5 MG TABLET 5 MG PO ×3 (09:10→17:26)
[2020-11-02] MEDS: MICONAZOLE NITRATE 2% CREAM 30 GM TUBE 1 APPLIC TOPICAL ×2 (09:11→20:45)
--- NOTE | 2020-11-02 09:57 | PM.IMPN ---
Progress Note: A&P Assessment and Plan (1) Shock: Code(s): R57.9 - Shock, unspecified Status: Acute Assessment and Plan: most likely secondary to hypovolemic secondary dehydration as her symptoms improved with hydration No more congested not tolerated IV Lasix (2) Hyponatremia: Code(s): E87.1 - Hypo-osmolality and hyponatremia Status: Acute Assessment and Plan: patient is 70-year-old female was in assisted for rehab and fell and patient was brought emergency department for further evaluation upon arrival patient was confused and was found to have profound hyponatremia with sodium of 109, suspect most likely secondary dehydration as patient had not been taking p.o. at the assisted for her , patient appears anasarca, most likely patient 3rd spacing and depleted intravascular volume, patient was given 1 L of bolus emergency depart, patient seen by Nephrology and placed on normal saline and 125cc an hour, her sodium slightly trending up, patient herself still quite somnolent and confused unable to provide any review of symptom, is present in the room did provide history, patient is in ICU seen by marketing project manager and blindstitch lapel padder and appreciate. 10/28 today patient is more alert and communicative and have been sodium have trended up to 126 compared to 109 upon arrival, patient is been hydrate and rest 3% saline and seen by Nephrology as well as intensive, patient clinical symptoms are improving may transfer patient out of ICU possibly tomorrow will continue to monitor, appreciate blindstitch lapel padder and Program Strategist. 10/29 sodium level at 129. Mild hypokalemia. Normal renal function. Hypotension persists and on Levophed 25% albumin added along with midodrine. Nephrology following for sodium levels. Acute kidney injury with creatinine of 2.5 on admission resolved with normal renal function currently. Urinalysis reflective of UTI on ceftriaxone urine culture with no growth. History of renal cell carcinoma following Dr. Velasco. Possible left lower extremity cellulitis on ceftriaxone and vancomycin. Anemia of chronic disease hemoglobin stable at 8. Proximal atrial fibrillation rate control on Eliquis. 10/30 continues to make improvement. Levophed has been turned off since this morning. She has been placed on midodrine which will be continued continue to monitor blood pressure. Sodium level improved to 130. Acute kidney injury has resolved. Continue antibiotics for his lower extremity cellulitis. Anemia stable continue to monitor on Eliquis for paroxysmal atrial fibrillation rate controlled. PT OT to evaluate and treat will need rehabilitation discussed with her aspect 11/01 since some more with more confused today likely from her congestive heart failure. Given a dose of Lasix yesterday with blood pressure doing in 80s will hold off any need further diuresis today. Continue albuterol inhaler /nebulization. Also continue albumin infusion as ordered. PT OT to continue to evaluate and treat. Fever spike yesterday with panculture. Check UA and urine culture currently on ceftriaxone. Urine so some RBCs and WBC will send for urine culture. Already on ceftriaxone await further culture to switch antibiotic. requesting nerve neurology consultation not sure if there are 1 for this weekend will consult neurology. Replace potassium 11/02: Is less confused today however very slow to respond. Blood pressure borderline. Random cortisol 1.95 which is low will do cosyntropin test today. Sodium slightly worse today at 1:27 a.m.. Replace potassium and magnesium. Continue ceftriaxone await urine culture. No further fever spike (3) Hypokalemia: Code(s): E87.6 - Hypokalemia Status: Acute Assessment and Plan: Replace as needed (4) Acute kidney failure, unspecified: Code(s): N17.9 - Acute kidney failure, unspecified Status: Resolved Assessment and Plan: mos
[2020-11-02] MEDS: COSYNTROPIN 0.25 MG/ML VIAL IV PUSH (13:09)
--- NOTE | 2020-11-02 13:50 | P.PNNP_ITS ---
Progress Note: A&P Assessment and Plan (1) Hyponatremia: Code(s): E87.1 - Hypo-osmolality and hyponatremia Status: Acute Assessment and Plan: * suspect this is more of a chronic issue than acute * multifactorial etiology: - cancer/malignancy - on SSRI (zoloft) - on thiazide diuretic (chlorthalidone) - poor oral intake - tramadol use (pain) * evaluation to date: - CT brain is negative - serum and urine osmolality are pending - TSH is slightly high - probably not contributory - cortisol is very low - consider Cortrosyn stim test * sodium level relatively stable * start official fluid restriction (2) Hypokalemia: Code(s): E87.6 - Hypokalemia Status: Acute Assessment and Plan: * suspect total body potassium depleted state * replace as needed * follow magnesium (3) Acute kidney failure, unspecified: Code(s): N17.9 - Acute kidney failure, unspecified Status: Resolved Assessment and Plan: * resolved/resolving * due to hypotension/hemodynamic instability and prerenal factors * evaluation to date: - renal ultrasound shows normal single kidney - urine electrolytes are pre renal - urine eosinophils are negative - urinalysis shows infection/inflammation (but culture negative) * follow trend of repeat labs (4) Shock: Code(s): R57.9 - Shock, unspecified Status: Acute Assessment and Plan: * off pressor therapy * on midodrine * IV albumin PRN * follow hemodynamics (5) Metastatic renal cell carcinoma: Code(s): C64.9 - Malignant neoplasm of unspecified kidney, except renal pelvis Status: Chronic Assessment and Plan: * Dr. Marshall follows this as an outpatient * halfway prognosis(?) Will continue to follow. Subjective Date/time seen: 11/02/20 13:50 Seems a bit more sleepy/lethargic today in comparison to yesterday; BP remains a bit soft as well; no apparent distress voiced at this time; no events overnight or earlier this AM. Exam Narrative: Exam Narrative: General: WD/WN female in NAD Heart: normal S1 and S2; no rub Lungs: clear to auscultation Abdomen: soft, nontender, nondistended, positive bowel sounds Extremities: no cyanosis or clubbing; no edema Skin: no rash or nodules Objective Data Vital Signs Vital Signs: Vital Signs Temp Pulse Resp BP Pulse Ox 11/02/20 08:31 93 20 11/02/20 08:23 96 20 91 11/02/20 08:00 93 94 11/02/20 06:00 36.6 C 97 18 91/50 L 99 11/02/20 04:00 94 11/02/20 01:22 98 20 11/02/20 00:00 96 11/01/20 22:00 36.8 C 95 18 99/57 L 99 11/01/20 20:00 96 96 11/01/20 18:48 92 20 11/01/20 16:00 97 Intake/Output Intake/Output: Intake & Output 10/30/20 10/31/20 11/01/20 11/02/20 23:59 23:59 23:59 23:59 Intake Total 3025 836 1130 1130 Output Total 1500 2775 800 250 Balance 1525 -1939 330 880 Meds/Results Medications: Active Medications Generic Name Dose Route Start Last Admin Trade Name Freq PRN Reason Stop
--- NOTE | 2020-11-02 13:50 | PM.PNNEP ---
Progress Note: A&P Assessment and Plan (1) Hyponatremia: Code(s): E87.1 - Hypo-osmolality and hyponatremia Status: Acute Assessment and Plan: suspect this is more of a chronic issue than acute multifactorial etiology: - cancer/malignancy - on SSRI (zoloft) - on thiazide diuretic (chlorthalidone) - poor oral intake - tramadol use (pain) evaluation to date: - CT brain is negative - serum and urine osmolality are pending - TSH is slightly high - probably not contributory - cortisol is very low - consider Cortrosyn stim test sodium level relatively stable start official fluid restriction (2) Hypokalemia: Code(s): E87.6 - Hypokalemia Status: Acute Assessment and Plan: suspect total body potassium depleted state replace as needed follow magnesium (3) Acute kidney failure, unspecified: Code(s): N17.9 - Acute kidney failure, unspecified Status: Resolved Assessment and Plan: resolved/resolving due to hypotension/hemodynamic instability and prerenal factors evaluation to date: - renal ultrasound shows normal single kidney - urine electrolytes are pre renal - urine eosinophils are negative - urinalysis shows infection/inflammation (but culture negative) follow trend of repeat labs (4) Shock: Code(s): R57.9 - Shock, unspecified Status: Acute Assessment and Plan: off pressor therapy on midodrine IV albumin PRN follow hemodynamics (5) Metastatic renal cell carcinoma: Code(s): C64.9 - Malignant neoplasm of unspecified kidney, except renal pelvis Status: Chronic Assessment and Plan: Dr. Marshall follows this as an outpatient custodial prognosis(?) Will continue to follow. Subjective Date/time seen: 11/02/20 13:50 Seems a bit more sleepy/lethargic today in comparison to yesterday; BP remains a bit soft as well; no apparent distress voiced at this time; no events overnight or earlier this AM. Exam Narrative: Exam Narrative: General: WD/WN female in NAD Heart: normal S1 and S2; no rub Lungs: clear to auscultation Abdomen: soft, nontender, nondistended, positive bowel sounds Extremities: no cyanosis or clubbing; no edema Skin: no rash or nodules Objective Data Vital Signs Vital Signs: Vital Signs Temp Pulse Resp BP Pulse Ox 11/02/20 08:31 93 20 11/02/20 08:23 96 20 91 07/17/21 08:00 93 94 11/02/20 06:00 36.6 C 97 18 91/50 L 99 11/02/20 04:00 94 11/02/20 01:22 98 20 11/02/20 00:00 96 11/01/20 22:00 36.8 C 95 18 99/57 L 99 11/01/20 20:00 96 96 11/01/20 18:48 92 20 11/01/20 16:00 97 Intake/Output Intake/Output: Intake & Output 10/30/20 10/31/20 11/01/20 11/02/20 23:59 23:59 23:59 23:59 Intake Total 3025 836 1130 1130 Output Total 1500 2775 800 250 Balance 1525 -1939 330 880 Meds/Results Medications: Active Medications Generic Name Dose Route Start Last Admin Trade Name Freq PRN Reason Stop Dose Admin Acetaminophen 650 mg 10/25/20 13:10 11/01/20 19:34 Acetaminophen 325 Mg Tablet PO 650 mg Q4H PRN Administration Mild Pain (1-3) or Fever Albuterol 2.5 mg 10/31/20 02:00 11/02/20 14:00 Albuterol Sulfate Neb 2.5 Mg/0.5 Ml Inh INHALATION 2.5 mg Q6HRT YARELY Administration Apixaban 2.5 mg 10/27/20 17:00 11/02/20 09:10 Apixaban 2.5 Mg Tablet PO 2.5 mg BID YARELY Administration Bupropion HCl 75 mg 10/30/20 09:00 11/02/20 09:10 Bupropion Hcl 75 Mg Tablet PO 75 mg Q12HR YARELY Administration Ciprofloxacin 1 drop 10/26/20 10:00 11/02/20 13:13 Ciprofloxacin Hcl 0.3% Op Soln 2.5 Ml Btl EACH EYE 1 drop Q2HR YARELY Administration Epoetin Mina-epbx 10,000 units 10/26/20 09:2
--- NOTE | 2020-11-02 14:39 | WPDNEURCNPN ---
Assessment and Plan Additional Plan 70 years old lady with ongoing problem with the memory as per the who happened to be in the room has been told in the past that she does not have any dementia but on simple clinical examination today she does have memory dysfunction and agrees to she has no history of any psychiatric illness once the metabolic problems are taken care she will benefit from the ongoing medication for the possible dementia we can obtain the EEG while she is here the CT scan has already been done which does not show any territorial stroke, no hydrocephalus no chronic appy or subdurals Consult date: 11/02/20 Time Seen: 02:00 HPI: Yaneth Osborne is a 70 year old femaleHas been admitted to the hospital for the unspecified shock secondary to hypovolemic dehydration which subsequently have improved in addition to the hyponatremia he was transferred here from the [facility] for rehab and fell and was brought to the emergency department where she was found to be hyponatremic with sodium of only 109 patient appear to be in anasarca she received 1L bolus Emergency Room Department was seen by the oil field rig builder subsequently started normal saline but she remains somnolent and confused by 717 she was less confused but responding rather slowly he does have is still electrolyte imbalance in addition to ongoing history of acute renal failure initial CT scan at the time of admission was negative of the head she does have ongoing history of malignant neoplasm of the kidneys with metastatic disease and also adrenal cortical insufficiency most recent lab reveals WBC 6.7 hemoglobin only 7.2 platelet count of 187, sodium only 127 with potassium 2.9 BUN less than 2 and creatinine 64 with GFR more than 60 on antibiotics with vanc level of 17.4 on 10/[address] scan negative for the bleed or space-occupying lesion, or territorial stroke Doppler study of the lower extremities normal hip x-rays negative lumbar spine x-rays consistent with spondylosis echocardiogram of the heart not significant and chest x-ray most recently compatible with congestive changes Review of Systems Review of Systems: All systems reviewed & are unremarkable except as noted in HPI and below [facility] Past Medical History Medical History 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 she received chemo and radiation post that a last session was in July of 2019. She has been on chemo since then She is a patient of Dr. Johan Marshall and has recently been started on a new medication Tivozanib due to progression of disease on CT as of summer 2020. Mild dementia With short-term memory loss. Osteoarthritis Paroxysmal atrial fibrillation Single seizure In childhood. Surgical History Surgical History History of hysterectomy for benign disease History of incisional hernia repair History of left hip replacement (~09/2020) History of left nephrectomy (~2015) History of partial colectomy Sigmoid colectomy with colostomy and subsequent takedown for perforated diverticulum. Family History Family History Father Family history of chronic obstructive pulmonary disease Family history of emphysema Sibling Patient's brother is in good health Mother Family history of malignant neoplasm of breast in first degree relative Other Family history of cardiovascular disease Social History Social History Social History: Surrogate decision maker: Buster Osborne, . Code status:
[2020-11-02] MEDS: EPOETIN ALFA-EPBX 10,000 UNITS/ML VIAL 10000 UNITS SUB-Q (17:17)
[2020-11-02 18:06] LABS: Cortisol Baseline 0.45 ug/dL
[2020-11-02] MEDS: MAGNESIUM SULF 2 GM/WATER 50ML 2 GM/50 ML BAG IVPB (19:03)
[2020-11-03] VITALS (14 sets, daily range): BP systolic 104–137; BP diastolic 41–78; PULSE 72–106; RESP 16–20; TEMP 36.4–37; O2SAT 93–96; BMI 42.8
[2020-11-03] MEDS: CENTRAL LINE FLUSH 10 ML IV PUSH ×4 (00:41→20:37)
[2020-11-03] MEDS: CIPROFLOXACIN HCL 0.3% OP SOLN 2.5 ML BTL 1 DROP EACH EYE ×11 (00:43→22:00)
--- NOTE | 2020-11-03 01:44 | PCRCNOTE ---
Pt has been refusing CPAP since 2020. Pt has been given education on how important CPAP is to her health. RN informed, pt placed on 2 liters per RN request.
[2020-11-03] MEDS: ALBUMIN HUMAN 25% 25 GM/100 ML 100 ML IVPB ×2 (03:47→08:25)
[2020-11-03] MEDS: LEVOTHYROXINE SODIUM 125 MCG TABLET PO (06:07)
[2020-11-03 06:36] LABS: Basophils Absolute Auto 0.1 K/mm3 (0.0-0.1); Basophils Percent Auto 1.6 % (0.2-1.2); Eosinophils Absolute Auto 0.5 K/mm3 (0-0.3); Eosinophils Percent Auto 6.9 % (0-4.4); Hematocrit 21.8 % (37.0-47.0); Hemoglobin 7.1 g/dL (12.0-15.0); Immature Granulocyte Absolute 0.08 K/mm3 (0.00-0.031); Immature Granulocyte Percent A 1.1 % (0-0.5); Lymphocytes Absolute Auto 1.03 K/mm3 (0.9-3.2); Lymphocytes Percent Auto 14.7 % (18.3-44.2); Mean Corpuscular HGB Conc 32.6 g/dl (32-36); Mean Corpuscular Hemoglobin 30.6 pg (26-34); Mean Platelet Volume 9.2 fl (7.4-10.4); Monocytes Absolute Auto 0.7 K/mm3 (0.1-0.6); Monocytes Percent Auto 10.4 % (2.6-8.5); Neutrophils Absolute Auto 4.6 K/mm3 (1.3-6.7); Neutrophils Percent Auto 65.3 % (45.5-73.1); Platelet Count Result 197 k/mm3 (150-375); Red Blood Count 2.32 M/mm3 (4.2-5.4); Red Cell Distribution Width 17.2 % (11.5-14.5)
[2020-11-03 07:00] LABS: Alanine Aminotransferase 10 U/L (4-35); Albumin Level 3.9 g/dL (3.5-5.1); Alkaline Phosphatase 83 U/L (38-126); Anion Gap 11 mmol/L (8-16); Aspartate Amino Transferase 46 U/L (14-36); Bilirubin,Total 1.8 mg/dL (0.2-1.3); Calcium 7.9 mg/dL (8.4-10.2); Carbon Dioxide 23 mmol/L (22-30); Chloride 97 mmol/L (98-107); Estimated CRCL calculation 64 ml/min; Estimated Glomerular Filt Rate > 60; Glucose 94 mg/dL (65-110); Magnesium 1.9 mg/dL (1.6-2.3); Potassium 3.1 mmol/L (3.4-5.0); Sodium 131 mmol/L (137-145)
[2020-11-03 07:21] LABS: Blood Urea Nitrogen < 2 mg/dL (7-17)
[2020-11-03] MEDS: IPRATROPIUM BR 0.02% INH SOLN 0.5 MG/2.5 ML VIAL INHALATION ×3 (07:34→20:43)
[2020-11-03] MEDS: ALBUTEROL SULFATE NEB 2.5 MG/0.5 ML INH INHALATION ×3 (07:34→20:43)
[2020-11-03] MEDS: APIXABAN 2.5 MG TABLET PO ×2 (08:25→17:29)
[2020-11-03] MEDS: buPROPion HCL 75 MG TABLET PO ×2 (08:25→20:37)
[2020-11-03] MEDS: MIDODRINE HCL 2.5 MG TABLET 5 MG PO ×3 (08:25→17:29)
[2020-11-03] MEDS: MICONAZOLE NITRATE 2% CREAM 30 GM TUBE 1 APPLIC TOPICAL ×2 (08:26→20:37)
[2020-11-03] MEDS: COSYNTROPIN 0.25 MG/ML VIAL IV PUSH (13:52)
--- NOTE | 2020-11-03 14:38 | PM.IMPN ---
Progress Note: A&P Assessment and Plan (1) Shock: Code(s): R57.9 - Shock, unspecified Status: Acute Assessment and Plan: most likely secondary to hypovolemic secondary dehydration as her symptoms improved with hydration No more congested not tolerated IV Lasix (2) Hyponatremia: Code(s): E87.1 - Hypo-osmolality and hyponatremia Status: Acute Assessment and Plan: patient is 70-year-old female was in intermediate for rehab and fell and patient was brought emergency department for further evaluation upon arrival patient was confused and was found to have profound hyponatremia with sodium of 109, suspect most likely secondary dehydration as patient had not been taking p.o. at the intermediate for her , patient appears anasarca, most likely patient 3rd spacing and depleted intravascular volume, patient was given 1 L of bolus emergency depart, patient seen by Nephrology and placed on normal saline and 125cc an hour, her sodium slightly trending up, patient herself still quite somnolent and confused unable to provide any review of symptom, is present in the room did provide history, patient is in ICU seen by engineering technical analyst and weapons officer naval activity and appreciate. 10/28 today patient is more alert and communicative and have been sodium have trended up to 126 compared to 109 upon arrival, patient is been hydrate and rest 3% saline and seen by Nephrology as well as intensive, patient clinical symptoms are improving may transfer patient out of ICU possibly tomorrow will continue to monitor, appreciate weapons officer naval activity and Director Human Services. 10/29 sodium level at 129. Mild hypokalemia. Normal renal function. Hypotension persists and on Levophed 25% albumin added along with midodrine. Nephrology following for sodium levels. Acute kidney injury with creatinine of 2.5 on admission resolved with normal renal function currently. Urinalysis reflective of UTI on ceftriaxone urine culture with no growth. History of renal cell carcinoma following Dr. Velasco. Possible left lower extremity cellulitis on ceftriaxone and vancomycin. Anemia of chronic disease hemoglobin stable at 8. Proximal atrial fibrillation rate control on Eliquis. 10/30 continues to make improvement. Levophed has been turned off since this morning. She has been placed on midodrine which will be continued continue to monitor blood pressure. Sodium level improved to 130. Acute kidney injury has resolved. Continue antibiotics for his lower extremity cellulitis. Anemia stable continue to monitor on Eliquis for paroxysmal atrial fibrillation rate controlled. PT OT to evaluate and treat will need rehabilitation discussed with her aspect 11/01 since some more with more confused today likely from her congestive heart failure. Given a dose of Lasix yesterday with blood pressure doing in 80s will hold off any need further diuresis today. Continue albuterol inhaler /nebulization. Also continue albumin infusion as ordered. PT OT to continue to evaluate and treat. Fever spike yesterday with panculture. Check UA and urine culture currently on ceftriaxone. Urine so some RBCs and WBC will send for urine culture. Already on ceftriaxone await further culture to switch antibiotic. requesting nerve neurology consultation not sure if there are 1 for this weekend will consult neurology. Replace potassium 11/02: Is less confused today however very slow to respond. Blood pressure borderline. Random cortisol 1.95 which is low will do cosyntropin test today. Sodium slightly worse today at 1:27 a.m.. Replace potassium and magnesium. Continue ceftriaxone await urine culture. No further fever spike 11/03: Blood pressure overall better. Will stop IV albumin infusion. Replace potassium magnesium is better no further spike. Discussed with nursing staff for cosyntropin test today (3) Hypokalemia: Code(s): E87.6 - Hypokalemia Status: Acute Assessment a
--- NOTE | 2020-11-03 14:42 | P.PNNP_ITS ---
Progress Note: A&P Assessment and Plan (1) Hyponatremia: Code(s): E87.1 - Hypo-osmolality and hyponatremia Status: Acute Assessment and Plan: * suspect this is more of a chronic issue than acute * multifactorial etiology: - cancer/malignancy - on SSRI (zoloft) - on thiazide diuretic (chlorthalidone) - poor oral intake - tramadol use (pain) * evaluation to date: - CT brain is negative - serum and urine osmolality are pending - TSH is slightly high - probably not contributory - cortisol is very low - Cortrosyn stim test today -- follow-up on results * sodium level relatively stable * on fluid restriction (2) Hypokalemia: Code(s): E87.6 - Hypokalemia Status: Acute Assessment and Plan: * suspect total body potassium depleted state * replace as needed * follow magnesium (3) Acute kidney failure, unspecified: Code(s): N17.9 - Acute kidney failure, unspecified Status: Resolved Assessment and Plan: * resolved/resolving * due to hypotension/hemodynamic instability and prerenal factors * evaluation to date: - renal ultrasound shows normal single kidney - urine electrolytes are pre renal - urine eosinophils are negative - urinalysis shows infection/inflammation (but culture negative) * follow trend of repeat labs (4) Shock: Code(s): R57.9 - Shock, unspecified Status: Acute Assessment and Plan: * off pressor therapy * on midodrine * IV albumin PRN * follow hemodynamics (5) Metastatic renal cell carcinoma: Code(s): C64.9 - Malignant neoplasm of unspecified kidney, except renal pelvis Status: Chronic Assessment and Plan: * Dr. Marshall follows this as an outpatient * vermin exterminator prognosis(?) Will continue to follow. Subjective Date/time seen: 11/03/20 14:42 No new issues or problems to report; continues to have intermittent confusion; blood pressure/hemodynamics are better at this time; no apparent distress; no other issues/events overnight or earlier this AM. Exam Narrative: Exam Narrative: General: WD/WN female in NAD Heart: normal S1 and S2; no rub Lungs: clear to auscultation Abdomen: soft, nontender, nondistended, positive bowel sounds Extremities: no cyanosis or clubbing; no edema Skin: warm and dry Objective Data Vital Signs Vital Signs: Vital Signs Temp Pulse Resp BP Pulse Ox 11/03/20 14:00 37.0 C 98 18 137/78 96 11/03/20 13:10 72 16 11/03/20 12:00 97 11/03/20 08:39 93 11/03/20 08:00 101 H 94 11/03/20 07:35 74 16 11/03/20 06:00 36.4 C 106 H 18 123/56 L 95 11/03/20 04:00 101 H 11/03/20 00:00 104 H 11/02/20 21:49 36.4 C 97 18 112/52 L 100 11/02/20 20:28 63 14 93 11/02/20 20:26 63 14 11/02/20 20:00 99 Intake/Output Intake/Output: Intake & Output 10/31/20 11/01/20 11/02/20 11/03/20 23:59 23:59 23:59 23:59 Intake Total 836 1180 1680 1190 Output Total 7395 893 643 7225 Balance -5919 484 4830 -360 Meds/Results Medications:
--- NOTE | 2020-11-03 14:42 | PM.PNNEP ---
Progress Note: A&P Assessment and Plan (1) Hyponatremia: Code(s): E87.1 - Hypo-osmolality and hyponatremia Status: Acute Assessment and Plan: suspect this is more of a chronic issue than acute multifactorial etiology: - cancer/malignancy - on SSRI (zoloft) - on thiazide diuretic (chlorthalidone) - poor oral intake - tramadol use (pain) evaluation to date: - CT brain is negative - serum and urine osmolality are pending - TSH is slightly high - probably not contributory - cortisol is very low - Cortrosyn stim test today -- follow-up on results sodium level relatively stable on fluid restriction (2) Hypokalemia: Code(s): E87.6 - Hypokalemia Status: Acute Assessment and Plan: suspect total body potassium depleted state replace as needed follow magnesium (3) Acute kidney failure, unspecified: Code(s): N17.9 - Acute kidney failure, unspecified Status: Resolved Assessment and Plan: resolved/resolving due to hypotension/hemodynamic instability and prerenal factors evaluation to date: - renal ultrasound shows normal single kidney - urine electrolytes are pre renal - urine eosinophils are negative - urinalysis shows infection/inflammation (but culture negative) follow trend of repeat labs (4) Shock: Code(s): R57.9 - Shock, unspecified Status: Acute Assessment and Plan: off pressor therapy on midodrine IV albumin PRN follow hemodynamics (5) Metastatic renal cell carcinoma: Code(s): C64.9 - Malignant neoplasm of unspecified kidney, except renal pelvis Status: Chronic Assessment and Plan: Dr. Marshall follows this as an outpatient watermaster prognosis(?) Will continue to follow. Subjective Date/time seen: 11/03/20 14:42 No new issues or problems to report; continues to have intermittent confusion; blood pressure/hemodynamics are better at this time; no apparent distress; no other issues/events overnight or earlier this AM. Exam Narrative: Exam Narrative: General: WD/WN female in NAD Heart: normal S1 and S2; no rub Lungs: clear to auscultation Abdomen: soft, nontender, nondistended, positive bowel sounds Extremities: no cyanosis or clubbing; no edema Skin: warm and dry Objective Data Vital Signs Vital Signs: Vital Signs Temp Pulse Resp BP Pulse Ox 11/03/20 14:00 37.0 C 98 18 137/78 96 11/03/20 13:10 72 16 11/03/20 12:00 97 11/03/20 08:39 93 11/03/20 08:00 101 H 94 11/03/20 07:35 74 16 11/03/20 06:00 36.4 C 106 H 18 123/56 L 95 11/03/20 04:00 101 H 11/03/20 00:00 104 H 11/02/20 21:49 36.4 C 97 18 112/52 L 100 11/02/20 20:28 63 14 93 11/02/20 20:26 63 14 11/02/20 20:00 99 Intake/Output Intake/Output: Intake & Output 10/31/20 11/01/20 11/02/20 11/03/20 23:59 23:59 23:59 23:59 Intake Total 836 1180 1680 1190 Output Total 2775 312 320 7485 Balance -3340 349 2456 -360 Meds/Results Medications: Active Medications Generic Name Dose Route Start Last Admin Trade Name Vero PRN Reason Stop Dose Admin Acetaminophen 650 mg 10/25/20 13:10 11/01/20 19:34 Acetaminophen 325 Mg Tablet PO 650 mg Q4H PRN Administration Mild Pain (1-3) or Fever Albuterol 2.5 mg 10/31/20 02:00 11/03/20 13:10 Albuterol Sulfate Neb 2.5 Mg/0.5 Ml Inh INHALATION 2.5 mg Q6HRT YARELY Administration Apixaban 2.5 mg 10/27/20 17:00 11/03/20 17:29 Apixaban 2.5 Mg Tablet PO 2.5 mg BID YARELY Administration Bupropion HCl 75 mg 10/30/20 09:00 11/03/20 08:25 Bupropion Hcl 75 Mg Tablet PO 75 mg Q12HR YARELY Administration Ciprofloxacin 1 drop 10/26/20 10:00 11/03/20 17:31 Ciprofloxacin Hcl 0.3% Op
[2020-11-03 15:15] LABS: Cortisol 30 Minute 4.03 ug/dL
[2020-11-03 15:15] LABS: Cortisol Baseline 0.68 ug/dL
[2020-11-03 16:11] LABS: Cortisol 60 Minute 6.93 ug/dL
[2020-11-03] MEDS: HYDROCORTISONE 5 MG TABLET PO (18:51)
[2020-11-03 21:35] LABS: Glucose Point of Care 151 mg/dl (65-105)
[2020-11-04] VITALS (15 sets, daily range): BP systolic 112–123; BP diastolic 63–67; PULSE 92–108; RESP 18–20; TEMP 36.2–37.9; O2SAT 94–97
--- NOTE | 2020-11-04 00:55 | PCRCNOTE ---
Window of time for administration has passed. See next scheduled administration.
[2020-11-04] MEDS: CIPROFLOXACIN HCL 0.3% OP SOLN 2.5 ML BTL 1 DROP EACH EYE ×12 (02:00→22:00)
[2020-11-04] MEDS: IPRATROPIUM BR 0.02% INH SOLN 0.5 MG/2.5 ML VIAL INHALATION ×4 (02:57→21:06)
[2020-11-04] MEDS: ALBUTEROL SULFATE NEB 2.5 MG/0.5 ML INH INHALATION ×4 (02:57→21:06)
[2020-11-04 05:56] LABS: Basophils Absolute Auto 0.1 K/mm3 (0.0-0.1); Basophils Percent Auto 1.2 % (0.2-1.2); Eosinophils Absolute Auto 0.4 K/mm3 (0-0.3); Eosinophils Percent Auto 4.7 % (0-4.4); Hematocrit 24.6 % (37.0-47.0); Hemoglobin 7.8 g/dL (12.0-15.0); Immature Granulocyte Absolute 0.13 K/mm3 (0.00-0.031); Immature Granulocyte Percent A 1.5 % (0-0.5); Lymphocytes Absolute Auto 1.03 K/mm3 (0.9-3.2); Lymphocytes Percent Auto 12.2 % (18.3-44.2); Mean Corpuscular HGB Conc 31.7 g/dl (32-36); Mean Corpuscular Hemoglobin 31.1 pg (26-34); Mean Platelet Volume 9.7 fl (7.4-10.4); Monocytes Absolute Auto 0.9 K/mm3 (0.1-0.6); Monocytes Percent Auto 10.7 % (2.6-8.5); Neutrophils Absolute Auto 5.9 K/mm3 (1.3-6.7); Neutrophils Percent Auto 69.7 % (45.5-73.1); Platelet Count Result 252 k/mm3 (150-375); Red Blood Count 2.51 M/mm3 (4.2-5.4); Red Cell Distribution Width 18.3 % (11.5-14.5); White Blood Count 8.5 K/mm3 (4.5-10.0)
[2020-11-04 06:04] LABS: Anion Gap 9 mmol/L (8-16); Calcium 8.1 mg/dL (8.4-10.2); Carbon Dioxide 24 mmol/L (22-30); Chloride 97 mmol/L (98-107); Estimated CRCL calculation 71 ml/min; Estimated Glomerular Filt Rate > 60; Glucose 106 mg/dL (65-110); Magnesium 1.8 mg/dL (1.6-2.3); Potassium 3.4 mmol/L (3.4-5.0); Sodium 130 mmol/L (137-145)
[2020-11-04] MEDS: LEVOTHYROXINE SODIUM 125 MCG TABLET PO (06:55)
[2020-11-04] MEDS: CENTRAL LINE FLUSH 10 ML IV PUSH ×3 (06:55→21:01)
[2020-11-04 06:57] LABS: Blood Urea Nitrogen < 2 mg/dL (7-17)
[2020-11-04] MEDS: HYDROCORTISONE 5 MG TABLET PO ×2 (08:52→17:00)
[2020-11-04] MEDS: APIXABAN 2.5 MG TABLET PO ×2 (08:53→17:00)
[2020-11-04] MEDS: HYDROCORTISONE 10 MG TABLET PO (08:53)
[2020-11-04] MEDS: buPROPion HCL 75 MG TABLET PO ×2 (08:53→21:00)
[2020-11-04] MEDS: MICONAZOLE NITRATE 2% CREAM 30 GM TUBE 1 APPLIC TOPICAL ×2 (08:53→21:01)
--- NOTE | 2020-11-04 13:20 | PM.IMPN ---
Progress Note: A&P Assessment and Plan (1) Shock: Code(s): R57.9 - Shock, unspecified Status: Acute Assessment and Plan: most likely secondary to hypovolemic secondary dehydration as her symptoms improved with hydration No more congested not tolerated IV Lasix (2) Hyponatremia: Code(s): E87.1 - Hypo-osmolality and hyponatremia Status: Acute Assessment and Plan: patient is 70-year-old female was in alf for rehab and fell and patient was brought emergency department for further evaluation upon arrival patient was confused and was found to have profound hyponatremia with sodium of 109, suspect most likely secondary dehydration as patient had not been taking p.o. at the alf for her , patient appears anasarca, most likely patient 3rd spacing and depleted intravascular volume, patient was given 1 L of bolus emergency depart, patient seen by Nephrology and placed on normal saline and 125cc an hour, her sodium slightly trending up, patient herself still quite somnolent and confused unable to provide any review of symptom, is present in the room did provide history, patient is in ICU seen by food operations manager and earth science technician and appreciate. 10/28 today patient is more alert and communicative and have been sodium have trended up to 126 compared to 109 upon arrival, patient is been hydrate and rest 3% saline and seen by Nephrology as well as intensive, patient clinical symptoms are improving may transfer patient out of ICU possibly tomorrow will continue to monitor, appreciate earth science technician and Field Software Engineer. 10/29 sodium level at 129. Mild hypokalemia. Normal renal function. Hypotension persists and on Levophed 25% albumin added along with midodrine. Nephrology following for sodium levels. Acute kidney injury with creatinine of 2.5 on admission resolved with normal renal function currently. Urinalysis reflective of UTI on ceftriaxone urine culture with no growth. History of renal cell carcinoma following Dr. Velasco. Possible left lower extremity cellulitis on ceftriaxone and vancomycin. Anemia of chronic disease hemoglobin stable at 8. Proximal atrial fibrillation rate control on Eliquis. 10/30 continues to make improvement. Levophed has been turned off since this morning. She has been placed on midodrine which will be continued continue to monitor blood pressure. Sodium level improved to 130. Acute kidney injury has resolved. Continue antibiotics for his lower extremity cellulitis. Anemia stable continue to monitor on Eliquis for paroxysmal atrial fibrillation rate controlled. PT OT to evaluate and treat will need rehabilitation discussed with her aspect 11/01 since some more with more confused today likely from her congestive heart failure. Given a dose of Lasix yesterday with blood pressure doing in 80s will hold off any need further diuresis today. Continue albuterol inhaler /nebulization. Also continue albumin infusion as ordered. PT OT to continue to evaluate and treat. Fever spike yesterday with panculture. Check UA and urine culture currently on ceftriaxone. Urine so some RBCs and WBC will send for urine culture. Already on ceftriaxone await further culture to switch antibiotic. requesting nerve neurology consultation not sure if there are 1 for this weekend will consult neurology. Replace potassium 11/02: Is less confused today however very slow to respond. Blood pressure borderline. Random cortisol 1.95 which is low will do cosyntropin test today. Sodium slightly worse today at 1:27 a.m.. Replace potassium and magnesium. Continue ceftriaxone await urine culture. No further fever spike 11/03: Blood pressure overall better. Will stop IV albumin infusion. Replace potassium magnesium is better no further spike. Discussed with nursing staff for cosyntropin test today 11/04 blood pressure is stable off IV Albumin. legs are getting better. Her cosyntropin te
[2020-11-04] MEDS: FUROSEMIDE 20 MG TABLET PO (15:12)
--- NOTE | 2020-11-04 16:48 | PM.PNNEP ---
Progress Note: A&P Assessment and Plan (1) Hyponatremia: Code(s): E87.1 - Hypo-osmolality and hyponatremia Status: Acute Assessment and Plan: suspect this is more of a chronic issue than acute multifactorial etiology: - cancer/malignancy - on SSRI (zoloft) - on thiazide diuretic (chlorthalidone) - poor oral intake - tramadol use (pain) evaluation to date: - CT brain is negative - serum and urine osmolality are pending - TSH is slightly high - probably not contributory - cortisol is very low - Cortrosyn stim test was very positive. Now on hydrocortisone. sodium level relatively stable on fluid restriction (2) Hypokalemia: Code(s): E87.6 - Hypokalemia Status: Acute Assessment and Plan: suspect total body potassium depleted state replace as needed follow magnesium (3) Acute kidney failure, unspecified: Code(s): N17.9 - Acute kidney failure, unspecified Status: Resolved Assessment and Plan: resolved (4) Shock: Code(s): R57.9 - Shock, unspecified Status: Acute Assessment and Plan: off pressor therapy on midodrine IV albumin PRN follow hemodynamics (5) Metastatic renal cell carcinoma: Code(s): C64.9 - Malignant neoplasm of unspecified kidney, except renal pelvis Status: Chronic Assessment and Plan: Dr. Marshall follows this as an outpatient intermediate manager prognosis(?) (6) Adrenal insufficiency: Code(s): E27.40 - Unspecified adrenocortical insufficiency Status: Acute Assessment and Plan: Acth pending. However she had already received cosyntropin yesterday. So if the ACTH is high then we know it is primary adrenal insufficiency. If it is low we do not know if the low ACTH is because of secondary adrenal insufficiency or the medicine affect on the ACTH. CT brain did not show anything in the sella however not a very sensitive test for this. CT abdomen showed a metastatic lesion in the 1 adrenal gland. Possibly she has primary adrenal insufficiency due to metastatic disease. Possibly due to the pancreatic mass. She is getting hydrocortisone 15 mg in the morning and 5 mg in the evening. See if this helps her tests. Subjective Date/time seen: 11/04/20 16:48 Interval history: Patient is weak. Lying in bed comfortably. No chest pain or shortness of breath Exam Narrative: Exam Narrative: General: WD/WN female in NAD Heart: normal S1 and S2; no rub Lungs: clear to auscultation Abdomen: soft, nontender, nondistended, positive bowel sounds Extremities: no cyanosis or clubbing; no edema Skin: no rash Objective Data Vital Signs Vital Signs: Vital Signs - 24 hr 11/03/20 20:00 11/03/20 20:44 11/03/20 20:54 Temperature Pulse Rate 99 98 101 H Respiratory Rate 18 18 18 Blood Pressure Pulse Oximetry 96 94 11/03/20 22:00 11/04/20 00:00 11/04/20 03:00 Temperature 36.6 C Pulse Rate 98 98 100 Respiratory Rate 20 18 Blood Pressure 104/41 L Pulse Oximetry 96 11/04/20 04:00 11/04/20 05:22 11/04/20 06:00 Temperature 36.2 C L Pulse Rate 100 107 H 98 Respiratory Rate 18 20 Blood Pressure 113/63 Pulse Oximetry 97 11/04/20 08:00 11/04/20 09:39 11/04/20 12:00 Temperature Pulse Rate 100 98 105 H Respiratory Rate 20 Blood Pressure Pulse Oximetry 11/04/20 14:00 11/04/20 15:08 11/04/20 15:25 Temperature 36.8 C Pulse Rate 103 H 102 H 101 H Respiratory Rate 18 18 20 Blood Pressure 123/67 Pulse Oximetry 94 11/04/20 16:00 Temperature Pulse Rate 101 H Respiratory Rate Blood Pressure Pulse Oximetry Intake/Output Intake/Output: Intake & Output 11/01/20 11/02/20 11/03/20 11/04/20 23:59 23:59 23:59 23:59 Intake Total 1180 1680 1310 1300 Output Total 800 65
[2020-11-04] MEDS: DONEPEZIL HCL 10 MG TABLET PO (21:01)
[2020-11-05] VITALS (16 sets, daily range): BP systolic 108–128; BP diastolic 57–74; PULSE 91–106; RESP 16–22; TEMP 36.1–36.5; O2SAT 93–99
[2020-11-05] MEDS: CIPROFLOXACIN HCL 0.3% OP SOLN 2.5 ML BTL 1 DROP EACH EYE ×6 (02:00→09:56)
[2020-11-05] MEDS: ALBUTEROL SULFATE NEB 2.5 MG/0.5 ML INH INHALATION ×4 (02:32→21:54)
[2020-11-05] MEDS: IPRATROPIUM BR 0.02% INH SOLN 0.5 MG/2.5 ML VIAL INHALATION ×4 (02:32→21:54)
[2020-11-05 06:32] LABS: Basophils Absolute Auto 0.1 K/mm3 (0.0-0.1); Eosinophils Absolute Auto 0.3 K/mm3 (0-0.3); Eosinophils Percent Auto 4.2 % (0-4.4); Hemoglobin 7.8 g/dL (12.0-15.0); Immature Granulocyte Absolute 0.15 K/mm3 (0.00-0.031); Immature Granulocyte Percent A 1.9 % (0-0.5); Lymphocytes Absolute Auto 1.07 K/mm3 (0.9-3.2); Lymphocytes Percent Auto 13.5 % (18.3-44.2); Mean Corpuscular HGB Conc 31.2 g/dl (32-36); Mean Corpuscular Hemoglobin 30.4 pg (26-34); Mean Corpuscular Volume 97.3 fl (80-100); Mean Platelet Volume 9.3 fl (7.4-10.4); Neutrophils Absolute Auto 5.3 K/mm3 (1.3-6.7); Neutrophils Percent Auto 67.4 % (45.5-73.1); Platelet Count Result 261 k/mm3 (150-375); Red Blood Count 2.57 M/mm3 (4.2-5.4); White Blood Count 7.9 K/mm3 (4.5-10.0)
[2020-11-05 06:41] LABS: Albumin Level 3.9 g/dL (3.5-5.1); Anion Gap 11 mmol/L (8-16); Calcium 8.7 mg/dL (8.4-10.2); Carbon Dioxide 24 mmol/L (22-30); Chloride 100 mmol/L (98-107); Estimated CRCL calculation 71 ml/min; Estimated Glomerular Filt Rate > 60; Glucose 101 mg/dL (65-110); Phosphorus 2.1 mg/dL (2.5-4.5); Potassium 3.3 mmol/L (3.4-5.0); Sodium 135 mmol/L (137-145)
[2020-11-05 07:06] LABS: Blood Urea Nitrogen < 2 mg/dL (7-17)
[2020-11-05] MEDS: LEVOTHYROXINE SODIUM 125 MCG TABLET PO (07:55)
[2020-11-05] MEDS: CENTRAL LINE FLUSH 10 ML IV PUSH ×3 (07:58→20:31)
[2020-11-05] MEDS: buPROPion HCL 75 MG TABLET PO ×2 (09:56→20:31)
[2020-11-05] MEDS: APIXABAN 2.5 MG TABLET PO ×2 (09:56→17:37)
[2020-11-05] MEDS: HYDROCORTISONE 10 MG TABLET PO (09:57)
[2020-11-05] MEDS: POTASSIUM CHLORIDE 10 MEQ TABLET.ER PO (09:57)
[2020-11-05] MEDS: FUROSEMIDE 20 MG TABLET PO (09:57)
[2020-11-05] MEDS: HYDROCORTISONE 5 MG TABLET PO ×2 (09:57→17:38)
[2020-11-05] MEDS: EPOETIN ALFA-EPBX 10,000 UNITS/ML VIAL 10000 UNITS SUB-Q (10:07)
--- NOTE | 2020-11-05 11:27 | PM.PNNEP ---
Progress Note: A&P Assessment and Plan (1) Hyponatremia: Code(s): E87.1 - Hypo-osmolality and hyponatremia Status: Acute Assessment and Plan: suspect this is more of a chronic issue than acute multifactorial etiology: - cancer/malignancy - on SSRI (zoloft) - on thiazide diuretic (chlorthalidone) - poor oral intake - tramadol use (pain) evaluation to date: - CT brain is negative - serum and urine osmolality are pending - TSH is slightly high - probably not contributory - cortisol is very low - Cortrosyn stim test was very positive. Now on hydrocortisone. sodium level relatively stable on fluid restriction (2) Hypokalemia: Code(s): E87.6 - Hypokalemia Status: Acute Assessment and Plan: suspect total body potassium depleted state replaced follow magnesium (3) Acute kidney failure, unspecified: Code(s): N17.9 - Acute kidney failure, unspecified Status: Resolved Assessment and Plan: resolved (4) Shock: Code(s): R57.9 - Shock, unspecified Status: Acute Assessment and Plan: off pressor therapy on midodrine IV albumin PRN follow hemodynamics (5) Metastatic renal cell carcinoma: Code(s): C64.9 - Malignant neoplasm of unspecified kidney, except renal pelvis Status: Chronic Assessment and Plan: Dr. Marshall follows this as an outpatient bed bug exterminator prognosis(?) (6) Adrenal insufficiency: Code(s): E27.40 - Unspecified adrenocortical insufficiency Status: Acute Assessment and Plan: await acth. endo consult when outpatient Subjective Date/time seen: 11/05/20 11:27 Interval history: Patient is weak. no abd discomfort. No chest pain or shortness of breath Exam Narrative: Exam Narrative: General: WD/WN female in NAD Heart: normal S1 and S2; no rub or gallop Lungs: clear to auscultation Abdomen: soft, nontender, nondistended, positive bowel sounds Extremities: no cyanosis or clubbing; no edema Skin: no rash or sq nodules Objective Data Vital Signs Vital Signs: Vital Signs - 24 hr 11/04/20 12:00 11/04/20 14:00 11/04/20 15:08 Temperature 36.8 C Pulse Rate 105 H 103 H 102 H Respiratory Rate 18 18 Blood Pressure 123/67 Pulse Oximetry 94 11/04/20 15:25 11/04/20 16:00 11/04/20 20:00 Temperature Pulse Rate 101 H 101 H 108 H Respiratory Rate 20 18 Blood Pressure Pulse Oximetry 96 11/04/20 21:07 11/04/20 22:00 11/05/20 02:32 Temperature 37.9 C H Pulse Rate 92 106 H 99 Respiratory Rate 18 18 22 H Blood Pressure 112/67 Pulse Oximetry 96 11/05/20 02:44 11/05/20 06:00 11/05/20 06:15 Temperature 36.2 C L Pulse Rate 92 106 H 104 H Respiratory Rate 20 16 Blood Pressure 128/74 Pulse Oximetry 99 11/05/20 09:33 11/05/20 09:41 Temperature Pulse Rate 95 96 Respiratory Rate 20 20 Blood Pressure Pulse Oximetry 96 Intake/Output Intake/Output: Intake & Output 11/02/20 11/03/20 11/04/20 11/05/20 23:59 23:59 23:59 23:59 Intake Total 1680 1310 2590 370 Output Total 650 1550 2900 1900 Balance 1403 -335 -767 -2037 Meds/Results Medications: Active Medications Generic Name Dose Route Start Last Admin Trade Name Freq PRN Reason Stop Dose Admin Acetaminophen 650 mg 10/25/20 13:10 11/01/20 19:34 Acetaminophen 325 Mg Tablet PO 650 mg Q4H PRN Administration Mild Pain (1-3) or Fever Albuterol 2.5 mg 10/31/20 02:00 11/05/20 09:32 Albuterol Sulfate Neb 2.5 Mg/0.5 Ml Inh INHALATION 2.5 mg Q6HRT YARELY Administration Apixaban 2.5 mg 10/27/20 17:00 11/05/20 09:56 Apixaban 2.5 Mg Tablet PO 2.5 mg BID YARELY Administration Artificial Tears 1 drop 11/05/20 10:18 Artificial Tears Ophth Soln 15 Ml Bottle EACH EYE QID PRN Dry Eye
--- NOTE | 2020-11-05 14:13 | PM.IMPN ---
Progress Note: A&P Assessment and Plan (1) Shock: Code(s): R57.9 - Shock, unspecified Status: Acute Assessment and Plan: most likely secondary to hypovolemic secondary dehydration as her symptoms improved with hydration No more congested not tolerated IV Lasix (2) Hyponatremia: Code(s): E87.1 - Hypo-osmolality and hyponatremia Status: Acute Assessment and Plan: patient is 70-year-old female was in half-way for rehab and fell and patient was brought emergency department for further evaluation upon arrival patient was confused and was found to have profound hyponatremia with sodium of 109, suspect most likely secondary dehydration as patient had not been taking p.o. at the half-way for her , patient appears anasarca, most likely patient 3rd spacing and depleted intravascular volume, patient was given 1 L of bolus emergency depart, patient seen by Nephrology and placed on normal saline and 125cc an hour, her sodium slightly trending up, patient herself still quite somnolent and confused unable to provide any review of symptom, is present in the room did provide history, patient is in ICU seen by glove stitcher and furniture packer and appreciate. 10/28 today patient is more alert and communicative and have been sodium have trended up to 126 compared to 109 upon arrival, patient is been hydrate and rest 3% saline and seen by Nephrology as well as intensive, patient clinical symptoms are improving may transfer patient out of ICU possibly tomorrow will continue to monitor, appreciate furniture packer and Final Inspector Paper. 10/29 sodium level at 129. Mild hypokalemia. Normal renal function. Hypotension persists and on Levophed 25% albumin added along with midodrine. Nephrology following for sodium levels. Acute kidney injury with creatinine of 2.5 on admission resolved with normal renal function currently. Urinalysis reflective of UTI on ceftriaxone urine culture with no growth. History of renal cell carcinoma following Dr. Velasco. Possible left lower extremity cellulitis on ceftriaxone and vancomycin. Anemia of chronic disease hemoglobin stable at 8. Proximal atrial fibrillation rate control on Eliquis. 10/30 continues to make improvement. Levophed has been turned off since this morning. She has been placed on midodrine which will be continued continue to monitor blood pressure. Sodium level improved to 130. Acute kidney injury has resolved. Continue antibiotics for his lower extremity cellulitis. Anemia stable continue to monitor on Eliquis for paroxysmal atrial fibrillation rate controlled. PT OT to evaluate and treat will need rehabilitation discussed with her aspect 11/01 since some more with more confused today likely from her congestive heart failure. Given a dose of Lasix yesterday with blood pressure doing in 80s will hold off any need further diuresis today. Continue albuterol inhaler /nebulization. Also continue albumin infusion as ordered. PT OT to continue to evaluate and treat. Fever spike yesterday with panculture. Check UA and urine culture currently on ceftriaxone. Urine so some RBCs and WBC will send for urine culture. Already on ceftriaxone await further culture to switch antibiotic. requesting nerve neurology consultation not sure if there are 1 for this weekend will consult neurology. Replace potassium 11/02: Is less confused today however very slow to respond. Blood pressure borderline. Random cortisol 1.95 which is low will do cosyntropin test today. Sodium slightly worse today at 1:27 a.m.. Replace potassium and magnesium. Continue ceftriaxone await urine culture. No further fever spike 11/03: Blood pressure overall better. Will stop IV albumin infusion. Replace potassium magnesium is better no further spike. Discussed with nursing staff for cosyntropin test today 11/04 blood pressure is stable off IV Albumin. legs are getting better. Her cosyntropin te
[2020-11-05] MEDS: DONEPEZIL HCL 10 MG TABLET PO (20:31)
[2020-11-05] MEDS: MICONAZOLE NITRATE 2% CREAM 30 GM TUBE 1 APPLIC TOPICAL (20:31)
[2020-11-06] VITALS (10 sets, daily range): BP systolic 112–127; BP diastolic 57–65; PULSE 91–98; RESP 16–20; TEMP 36.1–36.6; O2SAT 97–99
[2020-11-06] MEDS: ALBUTEROL SULFATE NEB 2.5 MG/0.5 ML INH INHALATION ×3 (03:07→21:01)
[2020-11-06] MEDS: IPRATROPIUM BR 0.02% INH SOLN 0.5 MG/2.5 ML VIAL INHALATION ×3 (03:07→21:01)
[2020-11-06] MEDS: CENTRAL LINE FLUSH 10 ML IV PUSH ×2 (05:29→15:46)
[2020-11-06] MEDS: LEVOTHYROXINE SODIUM 125 MCG TABLET PO (06:01)
[2020-11-06] MEDS: ARTIFICIAL TEARS OPHTH SOLN 15 ML BOTTLE 1 DROP EACH EYE (06:02)
[2020-11-06 06:23] LABS: Albumin Level 3.7 g/dL (3.5-5.1); Anion Gap 9 mmol/L (8-16); Blood Urea Nitrogen 4 mg/dL (7-17); Calcium 8.7 mg/dL (8.4-10.2); Carbon Dioxide 27 mmol/L (22-30); Chloride 98 mmol/L (98-107); Estimated CRCL calculation 71 ml/min; Estimated Glomerular Filt Rate > 60; Glucose 107 mg/dL (65-110); Phosphorus 1.8 mg/dL (2.5-4.5); Potassium 2.8 mmol/L (3.4-5.0); Sodium 134 mmol/L (137-145)
[2020-11-06] MEDS: FUROSEMIDE 20 MG TABLET PO (08:23)
[2020-11-06] MEDS: POTASSIUM CHLORIDE 10 MEQ TABLET.ER PO (08:23)
[2020-11-06] MEDS: APIXABAN 2.5 MG TABLET PO ×2 (08:23→17:35)
[2020-11-06] MEDS: HYDROCORTISONE 10 MG TABLET PO (08:23)
[2020-11-06] MEDS: HYDROCORTISONE 5 MG TABLET PO ×2 (08:23→17:36)
[2020-11-06] MEDS: buPROPion HCL 75 MG TABLET PO (08:24)
[2020-11-06] MEDS: POTASSIUM CHLORIDE 20 MEQ TABLET 40 MEQ PO ×2 (08:27)
[2020-11-06] MEDS: MICONAZOLE NITRATE 2% CREAM 30 GM TUBE 1 APPLIC TOPICAL (08:28)
[2020-11-06 13:05] LABS: Potassium 3.6 mmol/L (3.4-5.0)
--- NOTE | 2020-11-06 14:45 | PM.DS ---
DS: Admitting Diagnosis Admitting Diagnosis Admitting Diagnosis: Generalized weakness DS: Discharge Diagnosis Discharge Diagnosis (1) Shock: Code(s): R57.9 - Shock, unspecified Status: Acute Assessment and Plan: most likely secondary to hypovolemic secondary dehydration as her symptoms improved with hydration No more congested not tolerated IV Lasix (2) Hyponatremia: Code(s): E87.1 - Hypo-osmolality and hyponatremia Status: Acute Assessment and Plan: patient is 70-year-old female was in halfway for rehab and fell and patient was brought emergency department for further evaluation upon arrival patient was confused and was found to have profound hyponatremia with sodium of 109, suspect most likely secondary dehydration as patient had not been taking p.o. at the halfway for her , patient appears anasarca, most likely patient 3rd spacing and depleted intravascular volume, patient was given 1 L of bolus emergency depart, patient seen by Nephrology and placed on normal saline and 125cc an hour, her sodium slightly trending up, patient herself still quite somnolent and confused unable to provide any review of symptom, is present in the room did provide history, patient is in ICU seen by boardmarker and tile ditcher and appreciate. 10/28 today patient is more alert and communicative and have been sodium have trended up to 126 compared to 109 upon arrival, patient is been hydrate and rest 3% saline and seen by Nephrology as well as intensive, patient clinical symptoms are improving may transfer patient out of ICU possibly tomorrow will continue to monitor, appreciate tile ditcher and Levi Maker. 10/29 sodium level at 129. Mild hypokalemia. Normal renal function. Hypotension persists and on Levophed 25% albumin added along with midodrine. Nephrology following for sodium levels. Acute kidney injury with creatinine of 2.5 on admission resolved with normal renal function currently. Urinalysis reflective of UTI on ceftriaxone urine culture with no growth. History of renal cell carcinoma following Dr. Velasco. Possible left lower extremity cellulitis on ceftriaxone and vancomycin. Anemia of chronic disease hemoglobin stable at 8. Proximal atrial fibrillation rate control on Eliquis. 10/30 continues to make improvement. Levophed has been turned off since this morning. She has been placed on midodrine which will be continued continue to monitor blood pressure. Sodium level improved to 130. Acute kidney injury has resolved. Continue antibiotics for his lower extremity cellulitis. Anemia stable continue to monitor on Eliquis for paroxysmal atrial fibrillation rate controlled. PT OT to evaluate and treat will need rehabilitation discussed with her aspect 11/01 since some more with more confused today likely from her congestive heart failure. Given a dose of Lasix yesterday with blood pressure doing in 80s will hold off any need further diuresis today. Continue albuterol inhaler /nebulization. Also continue albumin infusion as ordered. PT OT to continue to evaluate and treat. Fever spike yesterday with panculture. Check UA and urine culture currently on ceftriaxone. Urine so some RBCs and WBC will send for urine culture. Already on ceftriaxone await further culture to switch antibiotic. requesting nerve neurology consultation not sure if there are 1 for this weekend will consult neurology. Replace potassium 11/02: Is less confused today however very slow to respond. Blood pressure borderline. Random cortisol 1.95 which is low will do cosyntropin test today. Sodium slightly worse today at 1:27 a.m.. Replace potassium and magnesium. Continue ceftriaxone await urine culture. No further fever spike 11/03: Blood pressure overall better. Will stop IV albumin infusion. Replace potassium magnesium is better no further spike. Discussed with nursing staff for cosyntropin test today
[2020-11-06] MEDS: HEPARIN SODIUM LOCK FLUSH 500 UNITS/5 ML VIAL IV PUSH (15:46)
[2020-11-06 16:13] LABS: Anion Gap 12 mmol/L (8-16); Blood Urea Nitrogen 4 mg/dL (7-17); Calcium 9.2 mg/dL (8.4-10.2); Carbon Dioxide 25 mmol/L (22-30); Chloride 99 mmol/L (98-107); Estimated CRCL calculation 64 ml/min; Estimated Glomerular Filt Rate > 60; Glucose 123 mg/dL (65-110); Magnesium 1.7 mg/dL (1.6-2.3); Potassium 3.7 mmol/L (3.4-5.0); Sodium 136 mmol/L (137-145)
[2020-11-06 20:32] LABS: Adrenocorticotropic Hormone <5 pg/mL (6-50)
--- NOTE | 2020-11-06 21:19 | PC.NURSE ---
Pt picked up by ambulance at 2114. Spouse made aware. [place]worth catheter draining. All questions answered.
--- NOTE | 2020-11-07 06:24 | P.CDI_ITS ---
CDI Query Clarification Request -One blood culture from 11/03 grew coag negative staphylococcus -On 11/04 Dr Grijalva documented this afternoon lab calls me with the Critical resolved in the blood culture being positive for gram-positive cocci in clusters. This is a blood culture that was obtained on 11/03/2020. Blood culture ordered on 11/01/2020 for his spike of fever his already been no growth so far. She is clinically improved with no fever and improved blood pressure. Will place her on empiric vancomycin until this is further elucidated -No further mention of positive blood culture Please clarify if positive blood culture likely represents: * Sepsis * Bacteremia * Contaminate * Unable to determine
== END 2020-11-06 21:15 | DRG 640 ==
LOC: ANHED 13:12 → ANHICU 13:58 → ANH3MEDSUR 11-05 12:16 → ANHICU 11-07 12:40
PROVIDERS: Internal Medicine; Internal Medicine Nephrology; Nurse Practitioner; Physician Assistant; Psychiatry & Neurology Neurology; Admitting Provider Internal Medicine; Emergency Provider Emergency Medicine; PCP Family Medicine; Visit Provider Family Medicine
DX: E87.1 Hypo-osmolality and hyponatremia (principal); R57.1 Hypovolemic shock; N17.9 Acute kidney failure, unspecified; N39.0 Urinary tract infection, site not specified; G93.40 Encephalopathy, unspecified; L03.116 Cellulitis of left lower limb; J81.1 Chronic pulmonary edema; E27.40 Unspecified adrenocortical insufficiency; E87.6 Hypokalemia; D64.9 Anemia, unspecified; I48.0 Paroxysmal atrial fibrillation; F32.9 Major depressive disorder, single episode, unspecified; F03.90 Unspecified dementia, unspecified severity, without behavioral disturbance, psychotic disturbance, mood disturbance, and anxiety; E86.0 Dehydration; N18.30 Chronic kidney disease, stage 3 unspecified; E03.9 Hypothyroidism, unspecified; Z90.5 Acquired absence of kidney; Z85.528 Personal history of other malignant neoplasm of kidney
CPT/HCPCS: 36415; 51701; 70450; 71045; 72100; 73502; 76775; 80048; 80053; 80069; 80202; 81001; 82024; 82533; 82550; 82570; 82607; 82948; 83605; 83735; 84100; 84132; 84156; 84295; 84300; 84443; 85025; 85027; 85046; 85610; 85999; 86140; 87040; 87077; 87086; 87186; 92507; 92526; 92610; 93005; 93306; 93970; 94640; 96361; 96374; 97110; 97162; 97166; 97530; 97535; 99285; A9270; C8929; J0610; J0696; J0834; J1642; J1644; J1940; J2405; J3370; J3475; J3480; J7030; J7040; J7050; J7120; J7131; P9047; Q5106; Q9957

== ENCOUNTER 2020-11-28 21:17 | Emergency (ER) | payer MEDICARE, OTHER, SELFPAY ==
[2020-11-28] VITALS (7 sets, daily range): BP systolic 137–154; BP diastolic 56–89; PULSE 98–127; RESP 17–27; TEMP 35.9; O2SAT 91–99
--- NOTE | ~2020-11-28 | CT_ITS ---
EXAMINATION: CT brain wo con DATE: 11/28/2020 22:39 INDICATION: Seizure TECHNIQUE: Computed tomography (CT) of the head was performed without intravenous contrast. Sagittal and coronal reconstructions were performed. The mA was adjusted according to patient size. Iterative reconstruction technique was employed. The dose-length product was 605.33 mGy-cm. COMPARISON: head CT dated 10/25/20 and 07/27/2018 FINDINGS: No acute intracranial hemorrhage, acute infarction or abnormal extra axial fluid collection. There is mild scattered white matter hypoattenuation consistent with chronic small vessel ischemic disease. A region of decreased regular hypoattenuation involving the right parietal lobe appears slightly more prominent than the remainder and given patient's history of known metastatic disease could not exclud e vasogenic edema related to a brain metastasis although no discrete mass or nodule is appreciated. S ymmetric prominence of the sulci consistent with mild age-appropriate diffuse cerebral volume loss. V entricles are normal and symmetric. The right mastoid is hypopneumatized. The orbits and left mastoid air cells are normal. Opacification of one of the posterior left ethmoid air cells. IMPRESSION: 1. Catheter white matter hypoattenuation which would be consistent with chronic small vessel ischemic disease although a lesion in the right parietal lobe appears less dense than the remainder and altho ugh no discrete nodules or masses appreciated cannot exclude metastatic disease given the patient's k nown history thereof and presentation with severe. Could consider further evaluation with pre and pos tcontrast MRI or CT. Reviewed, dictated and finalized at location A. IMPRESSION: 1. Catheter white matter hypoattenuation which would be consistent with chronic small vessel ischemic disease although a lesion in the right parietal lobe rolan ears less dense than the remainder and although no discrete nodules or masses a ppreciated cannot exclude metastatic disease given the patient's known history thereof and presentation with severe. Could consider further evaluation with pr e and postcontrast MRI or CT.
--- NOTE | ~2020-11-28 | XR_ITS ---
EXAMINATION: XR chest 1V DATE: 11/28/2020 22:41 INDICATION: Seizure TECHNIQUE: frontal view of the chest was obtained. COMPARISON: Chest radiograph dated 10/31/2020 FINDINGS: Right internal jugular central venous port catheter with distal tip near the superior cavoatrial junc tion. Nodular opacity in the right lower lung zone which could represent pneumonia or metastatic dise ase. Resolution of prior pulmonary edema. No pleural effusion or pneumothorax. The cardiomediastinal silhouette is normal. Thoracolumbar posterior spinal fusion with partially visualized bilateral verti ollie cleve and pedicle screw fixation beginning at T11 and extending below the inferior margin of the fi eld-of-view. Additional postoperative change of prior ventral hernia mesh repair. IMPRESSION: 1. Nodular opacity at the right lower lung zone which could represent pneumonia or metastatic disease . Reviewed, dictated and finalized at location A. IMPRESSION: 1. Nodular opacity at the right lower lung zone which could represent pneumonia or metastatic disease.
--- NOTE | 2020-11-28 21:30 | ECG_ITS ---
Measurements Intervals [place] Rate: 131 P: 76 WI: 183 QRS: -29 QRSD: 95 T: 48 QT: 354 QTc: 523 Interpretive Statements SINUS TACHYCARDIA INCOMPLETE RIGHT BUNDLE BRANCH BLOCK LOW QRS VOLTAGE IN PRECORDIAL LEADS POOR R WAVE PROGRESSION, ANTERIOR LEADS BASELINE ARTIFACT- II, III, AVF, V1, V3-V6 ABNORMAL ECG Electronically Signed On 12-02-2020 15:06:52 CDT by Noah Shelley D.O.
[2020-11-28 22:02] LABS: Basophils Absolute Auto 0.2 K/mm3 (0.0-0.1); Basophils Percent Auto 1.1 % (0.2-1.2); Eosinophils Absolute Auto 0.5 K/mm3 (0-0.3); Eosinophils Percent Auto 3.4 % (0-4.4); Hematocrit 39.5 % (37.0-47.0); Hemoglobin 12.4 g/dL (12.0-15.0); Immature Granulocyte Absolute 0.23 K/mm3 (0.00-0.031); Immature Granulocyte Percent A 1.5 % (0-0.5); Lymphocytes Absolute Auto 2.27 K/mm3 (0.9-3.2); Lymphocytes Percent Auto 15.3 % (18.3-44.2); Mean Corpuscular HGB Conc 31.4 g/dl (32-36); Mean Corpuscular Hemoglobin 29.9 pg (26-34); Mean Corpuscular Volume 95.2 fl (80-100); Mean Platelet Volume 8.6 fl (7.4-10.4); Monocytes Absolute Auto 1.1 K/mm3 (0.1-0.6); Monocytes Percent Auto 7.1 % (2.6-8.5); Neutrophils Absolute Auto 10.6 K/mm3 (1.3-6.7); Neutrophils Percent Auto 71.6 % (45.5-73.1); Platelet Count Result 368 k/mm3 (150-375); Red Blood Count 4.15 M/mm3 (4.2-5.4); White Blood Count 14.9 K/mm3 (4.5-10.0)
[2020-11-28] MEDS: levETIRAcetam 1000MG/NACL100ML 1,000 MG/100 ML BAG 400 MG IVPB (22:04)
[2020-11-28] MEDS: ONDANSETRON INJ 4 MG/2 ML VIAL IV PUSH (22:05)
[2020-11-28] MEDS: SODIUM CHLORIDE 0.9% IV 1,000 ML 999 ML IV CONT (22:05)
[2020-11-28 22:17] LABS: INR 1.1; Prothrombin Time 14.5 Seconds (11.1-14.7)
[2020-11-28 22:18] LABS: Partial Thromboplastin Time 31.7 SECONDS (22.3-36.8)
[2020-11-28 22:32] LABS: Troponin I < 0.012 ng/mL (0.000-0.034)
[2020-11-28 22:41] LABS: Alanine Aminotransferase 57 U/L (4-35); Albumin Level 4.1 g/dL (3.5-5.1); Alkaline Phosphatase 101 U/L (38-126); Anion Gap 20 mmol/L (8-16); Aspartate Amino Transferase 139 U/L (14-36); Bilirubin,Total 1.4 mg/dL (0.2-1.3); Blood Urea Nitrogen 8 mg/dL (7-17); Calcium 10.1 mg/dL (8.4-10.2); Carbon Dioxide 14 mmol/L (22-30); Chloride 102 mmol/L (98-107); Estimated CRCL calculation 45 ml/min; Estimated Glomerular Filt Rate 45; Glucose 203 mg/dL (65-110); Magnesium 1.6 mg/dL (1.6-2.3); Potassium 4.3 mmol/L (3.4-5.0); Sodium 136 mmol/L (137-145)
[2020-11-28 22:49] LABS: Lactic Acid Reflex 11.4 mmol/L (0.7-2.1)
[2020-11-28 23:03] LABS: Add Urine Microscopic? NO; Appearance Urine Clear (Clear); Bilirubin Urine Negative (Negative); Blood Urine Negative (Negative); Color Urine Yellow (Yellow); Glucose Urine UA Negative (Negative); Ketones Urine Negative (Negative); Leukocyte Esterase Ur Negative LEU/UL (Negative); Nitrate Urine Negative (Negative); Protein Urine Negative (Negative); Specific Grav Ur 1.011 (1.001-1.035); Urobilinogen Urine Negative mg/dL (<2.0)
[2020-11-29] VITALS (34 sets, daily range): BP systolic 102–174; BP diastolic 65–100; PULSE 90–98; RESP 15–25; TEMP 36.3; O2SAT 89–100
[2020-11-29] MEDS: DEXAMETHASONE SOD PHOS INJ 4 MG/ML VIAL 10 MG IV PUSH (00:20)
--- NOTE | 2020-11-29 00:24 | ED.SEIZURE ---
HPI - Seizure General Chief Complaint: Seizure Stated Complaint: seizures Time Seen by Provider: 11/28/20 21:28 History of Present Illness HPI Narrative: Patient is 70-year-old female presents the emergency department with chief complaint of seizure. Patient today had 3 generalized tonic-clonic seizures and presented to the emergency department in a postictal state. While in the emergency department the patient had a another seizure and the patient has reported history of metastatic renal cancer but has no prior history of metastatic lesions to the brain. Patient is currently just taking oral chemo agent. Related Data Home Medications Medication Instructions Recorded Confirmed levothyroxine 100 mcg tablet 137 mcg PO DAILY tablet 04/28/19 10/25/20 Eliquis 2.5 mg PO BID 10/25/20 10/25/20 Fleet Enema 118 ml RECTAL ONCE 10/25/20 10/25/20 acetaminophen 650 mg PO Q6H PRN 10/25/20 10/25/20 albuterol sulfate [ProAir HFA] 1 puff INHALATION Q6H PRN 10/25/20 10/25/20 bisacodyl 10 mg RECTAL DAILY PRN 10/25/20 10/25/20 bupropion HCl 75 mg PO BID 10/25/20 10/25/20 chlorthalidone 25 mg PO DAILY 10/25/20 10/25/20 cholecalciferol (vitamin D3) 125 mcg PO DAILY 10/25/20 10/25/20 gabapentin 600 mg PO HS 10/25/20 10/25/20 hydroxyzine HCl 50 mg PO TID PRN 10/25/20 10/25/20 methocarbamol 750 mg PO TID 10/25/20 10/25/20 pantoprazole 40 mg PO QAM 10/25/20 10/25/20 tramadol 25 mg PO Q6H PRN 10/25/20 10/25/20 Allergies Allergy/AdvReac Type Severity Reaction Status Date / Time erythromycin base Allergy Unknown N/V, RASH Verified 11/04/20 03:18 Sulfa (Sulfonamide Allergy Unknown Unknown Verified 11/04/20 03:18 Antibiotics) codeine AdvReac Unknown N/V Verified 11/04/20 03:18 Review of Systems Review of Systems: A 10 system review of systems was completed on the patient and is negative except for what is stated in the HPI. Nursing and ancillary documentation was reviewed. 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 she received chemo and radiation post that a last session was in July of 2019. She has been on chemo since then She is a patient of Dr. Johan Marshall and has recently been started on a new medication Tivozanib due to progression of disease on CT as of summer 2020. Mild dementia With short-term memory loss. Osteoarthritis Paroxysmal atrial fibrillation Single seizure In childhood. Surgical History Surgical History History of hysterectomy for benign disease History of incisional hernia repair History of left hip replacement (~09/2020) History of left nephrectomy (~2015) History of partial colectomy Sigmoid colectomy with colostomy and subsequent takedown for perforated diverticulum. Family History Family History Father Family history of chronic obstructive pulmonary disease Family history of emphysema Sibling Patient's brother is in good health Mother Family history of malignant neoplasm of breast in first degree relative Other Family history of cardiovascular disease Social History Social History Social History: Surrogate decision maker: Buster Osborne, . Code status: Full code. Smoking status: Never smoker Second hand tobacco smoke exposure: No Alcohol intake: never Substance use: never Substance use type: does not use Additional living arrangements comments: The patient lives with her in
--- NOTE | 2020-11-29 00:29 | PC.NURSE ---
assumed care at 11 pm. Report from Viridiana CHURCH
[2020-11-29 00:59] LABS: Reflex Lactic Acid Yes or No Add Lactic
--- NOTE | 2020-11-29 01:03 | PC.NURSE ---
Spoke with Jak at [facility]. Status on bed for this patient is she has been accepted to [facility]/Onc by Dr. Marshall. Currently this patient is on a waitlist. Not expecting a bed assignment until at least 07:30 this morning. If something changes, they will call us.
[2020-11-29 03:29] LABS: Lactic Acid 1.1 mmol/L (0.7-2.1)
[2020-11-29] MEDS: MAGNESIUM SULF 2 GM/WATER 50ML 2 GM/50 ML BAG IVPB (04:35)
--- NOTE | 2020-11-29 07:30 | PC.NURSE ---
REPORT FROM HUSSEIN CHURCH. AWAITING BED ASSIGNMENT FROM [facility].
[2020-11-29] MEDS: DEXAMETHASONE SOD PHOS INJ 4 MG/ML VIAL (11:16)
[2020-11-29] MEDS: levETIRAcetam 1000MG/NACL100ML 1,000 MG/100 ML BAG 400 MG IVPB (11:17)
[2020-11-29] MEDS: fentaNYL CITRATE INJ (*CRX) 100 MCG/2 ML VIAL 50 MCG IV PUSH (13:04)
[2020-11-29] MEDS: traMADol HCL (*CRX) 50 MG TABLET PO (16:34)
[2020-11-29] MEDS: DEXAMETHASONE SOD PHOS INJ 4 MG/ML VIAL IV PUSH (19:07)
[2020-11-30] VITALS (9 sets, daily range): BP systolic 135–155; BP diastolic 64–83; PULSE 86–95; RESP 18–20; O2SAT 93–99
[2020-11-30] MEDS: levETIRAcetam 1000MG/NACL100ML 1,000 MG/100 ML BAG 400 MG IVPB ×2 (00:42→09:25)
[2020-11-30] MEDS: DEXAMETHASONE SOD PHOS INJ 4 MG/ML VIAL IV PUSH ×3 (01:02→11:56)
[2020-11-30] MEDS: CENTRAL LINE FLUSH 10 ML IV PUSH ×3 (01:06→06:20)
--- NOTE | 2020-11-30 03:31 | PC.NURSE ---
spoke to molly they advised it would be tomorrow for a bed #
[2020-11-30] MEDS: HEPARIN SODIUM LOCK FLUSH 500 UNITS/5 ML VIAL IV PUSH (06:20)
--- NOTE | 2020-11-30 09:32 | PC.NURSE ---
breakfast tray ordered
--- NOTE | 2020-11-30 10:02 | PC.NURSE ---
Gudelia called from [place]. Pt has been assigned to room 12 8 bed 8 at [facility]. Report to be called to [phone]
--- NOTE | 2020-11-30 10:08 | PC.NURSE ---
called Yaneth Fischer to give report. [facility] room has been changed to room 12 8 bed 32. report to be called at 1030 per yaneth castillo. pt and family updated
--- NOTE | 2020-11-30 11:12 | PC.NURSE ---
[facility] declined transfer - no truck [facility] accepted trip#[id number]
--- NOTE | 2020-11-30 13:01 | PC.NURSE ---
CALLED [facility] NOTIFIED EMS HERE TO TRANSPORT PT TO [facility]
== END 2020-11-30 13:10 ==
PROVIDERS: Emergency Provider Emergency Medicine; PCP Family Medicine
DX: R56.9 Unspecified convulsions (principal); C64.2 Malignant neoplasm of left kidney, except renal pelvis; G93.9 Disorder of brain, unspecified; Z20.822 Contact with and (suspected) exposure to COVID-19; F03.90 Unspecified dementia, unspecified severity, without behavioral disturbance, psychotic disturbance, mood disturbance, and anxiety; I48.0 Paroxysmal atrial fibrillation; Z90.5 Acquired absence of kidney; E03.9 Hypothyroidism, unspecified; M19.90 Unspecified osteoarthritis, unspecified site; F32.9 Major depressive disorder, single episode, unspecified; Z86.718 Personal history of other venous thrombosis and embolism; Z90.49 Acquired absence of other specified parts of digestive tract; Z96.642 Presence of left artificial hip joint; Z79.01 Long term (current) use of anticoagulants; R00.0 Tachycardia, unspecified; I45.10 Unspecified right bundle-branch block; R94.31 Abnormal electrocardiogram [ECG] [EKG]; R91.8 Other nonspecific abnormal finding of lung field
CPT/HCPCS: 36415; 70450; 71045; 80053; 81003; 83605; 83735; 84484; 85025; 85610; 85730; 87426; 93005; 96361; 96365; 96366; 96367; 96375; 96376; 99285; A9270; C9803; J1100; J1642; J1953; J2405; J3010; J3475; J7030

== ENCOUNTER 2021-01-19 11:11 | Outpatient (NON) | payer MEDICARE, OTHER, SELFPAY ==
[2021-01-19 11:50] LABS: Add Urine Microscopic? YES; Appearance Urine Turbid (Clear); Bilirubin Urine Negative (Negative); Blood Urine 1+ (Negative); Color Urine Amber (Yellow); Glucose Urine UA Negative (Negative); Ketones Urine Negative (Negative); Leukocyte Esterase Ur 3+ LEU/UL (NEGATIVE); Mucus Urine Rare /lpf; Nitrate Urine Positive (Negative); Protein Urine 2+ mg/dL (Negative); RBC Urine 21-50 /hpf (0-2); Specific Grav Ur 1.016 (1.001-1.035); Squamous Epithelial Cell Urine Many /hpf (Few); Urobilinogen Urine Negative mg/dL (<2.0); WBC Urine >75 /hpf (0-3)
== END 2021-01-19 11:12 | disposition home or self-care (01) ==
PROVIDERS: PCP Family Medicine; Visit Provider Family Medicine
DX: R82.998 Other abnormal findings in urine (principal)
CPT/HCPCS: 81001; 87086; 87088

== ENCOUNTER 2021-01-21 16:12 | Outpatient (CLI) | payer MEDICARE, OTHER, SELFPAY ==
[2021-01-21 16:52] LABS: Basophils Absolute Auto 0.1 K/mm3 (0.0-0.1); Basophils Percent Auto 0.9 % (0.2-1.2); Eosinophils Absolute Auto 0.2 K/mm3 (0-0.3); Eosinophils Percent Auto 1.3 % (0-4.4); Hematocrit 29.9 % (37.0-47.0); Hemoglobin 9.2 g/dL (12.0-15.0); Immature Granulocyte Absolute 0.12 K/mm3 (0.00-0.031); Immature Granulocyte Percent A 0.8 % (0-0.5); Lymphocytes Absolute Auto 0.83 K/mm3 (0.9-3.2); Lymphocytes Percent Auto 5.5 % (18.3-44.2); Mean Corpuscular HGB Conc 30.8 g/dl (32-36); Mean Corpuscular Hemoglobin 27.5 pg (26-34); Mean Corpuscular Volume 89.3 fl (80-100); Mean Platelet Volume 8.7 fl (7.4-10.4); Monocytes Percent Auto 6.6 % (2.6-8.5); Neutrophils Absolute Auto 12.8 K/mm3 (1.3-6.7); Neutrophils Percent Auto 84.9 % (45.5-73.1); Platelet Count Result 431 k/mm3 (150-375); Red Blood Count 3.35 M/mm3 (4.2-5.4); Red Cell Distribution Width 16.6 % (11.5-14.5); White Blood Count 15.1 K/mm3 (4.5-10.0)
[2021-01-21 17:06] LABS: Alanine Aminotransferase 22 U/L (4-35); Albumin Level 4.2 g/dL (3.5-5.1); Alkaline Phosphatase 126 U/L (38-126); Anion Gap 12 mmol/L (8-16); Aspartate Amino Transferase 36 U/L (14-36); Blood Urea Nitrogen 9 mg/dL (7-17); Calcium 10.5 mg/dL (8.4-10.2); Carbon Dioxide 25 mmol/L (22-30); Chloride 97 mmol/L (98-107); Estimated Glomerular Filt Rate 55; Glucose 141 mg/dL (65-110); Potassium 3.4 mmol/L (3.4-5.0); Sodium 134 mmol/L (137-145)
== END 2021-01-21 16:13 | disposition home or self-care (01) ==
LOC: ANHLAB 16:18
PROVIDERS: PCP Family Medicine; Visit Provider Internal Medicine Medical Oncology
DX: C64.9 Malignant neoplasm of unspecified kidney, except renal pelvis (principal); C79.51 Secondary malignant neoplasm of bone
CPT/HCPCS: 36415; 80053; 85025

== ENCOUNTER 2021-01-23 14:21 | Outpatient (NON) | payer MEDICARE, OTHER, SELFPAY | END 2021-01-23 14:22 | disposition home or self-care (01) | LOC: HOME HLTH 14:23 | PROVIDERS: PCP Family Medicine; Visit Provider Family Medicine | DX: R19.7 Diarrhea, unspecified (principal) | CPT/HCPCS: 87324 ==

== ENCOUNTER 2021-02-14 14:23 | Emergency (ER) | payer MEDICARE, OTHER, SELFPAY ==
[2021-02-14] VITALS (9 sets, daily range): BP systolic 91–136; BP diastolic 33–82; PULSE 97–150; RESP 19–23; TEMP 35.9–36.4; O2SAT 90–100
--- NOTE | ~2021-02-14 | XR_ITS ---
XR chest 1V 02/14/2021 18:10 Indication: Fever. Tachycardia. Procedure: AP portable chest Comparison: Comparison to multiple prior studies sequentially, with oldest reviewed study dated 11/2017. Findings: Hazy left-sided airspace disease. Portacatheter tip in the caudal aspect of the SVC. Heart size normal. No pleural effusion or pneumothorax. No acute osseous abnormality. Impression: 1: Ill-defined airspace disease of the left mid and lower lung, compatible with pneumonia. Reviewed, dictated and finalized at location A. Impression: 1: Ill-defined airspace disease of the left mid and lower lung, compatible with pneumonia.
--- NOTE | ~2021-02-14 | CT_ITS ---
EXAMINATION: CT BRAIN W/O DATE: 02/14/2021 19:19 INDICATION: Evaluate for metastases. Renal cell carcinoma. TECHNIQUE: Computed tomography (CT) of the head was performed without intravenous contrast. The dose- length product was 605.33 mGy-cm. Automated exposure control and iterative reconstruction technique w ere employed. COMPARISON: No prior studies for comparison. FINDINGS: Mild generalized atrophy. There are scattered mild periventricular and subcortical white ma tter changes, most likely related to small vessel ischemic disease (microangiopathy). No abnormal mas ses, acute hemorrhage or mass effect. No ventriculomegaly or midline shift. No ventriculomegaly or midline shift. Midline sagittal images demonstrate a normal corpus callosum, c raniovertebral junction and sella turcica. Basilar cisterns are patent. Paranasal sinuses and mastoids are pneumatized. No depressed skull fractures. IMPRESSION: 1. No acute intracranial abnormality. If there is clinical concern for intracranial metastases, corre lation with contrast-enhanced MRI recommended. Reviewed, dictated and finalized at location A. IMPRESSION: 1. No acute intracranial abnormality. If there is clinical concern for intracra nial metastases, correlation with contrast-enhanced MRI recommended.
[2021-02-14] MEDS: LACTATED RINGERS 1,000 ML 999 ML IV CONT ×3 (18:11→21:08)
[2021-02-14 18:12] LABS: Basophils Absolute Auto 0.1 K/mm3 (0.0-0.1); Basophils Percent Auto 0.8 % (0.2-1.2); Eosinophils Absolute Auto 0.3 K/mm3 (0-0.3); Eosinophils Percent Auto 1.9 % (0-4.4); Hematocrit 32.5 % (37.0-47.0); Hemoglobin 9.8 g/dL (12.0-15.0); Immature Granulocyte Absolute 0.38 K/mm3 (0.00-0.031); Immature Granulocyte Percent A 2.5 % (0-0.5); Lymphocytes Absolute Auto 2.08 K/mm3 (0.9-3.2); Lymphocytes Percent Auto 13.5 % (18.3-44.2); Mean Corpuscular HGB Conc 30.2 g/dl (32-36); Mean Corpuscular Hemoglobin 26.1 pg (26-34); Mean Corpuscular Volume 86.7 fl (80-100); Mean Platelet Volume 8.8 fl (7.4-10.4); Monocytes Absolute Auto 1.4 K/mm3 (0.1-0.6); Monocytes Percent Auto 8.9 % (2.6-8.5); Neutrophils Absolute Auto 11.2 K/mm3 (1.3-6.7); Neutrophils Percent Auto 72.4 % (45.5-73.1); Platelet Count Result 534 k/mm3 (150-375); Red Blood Count 3.75 M/mm3 (4.2-5.4); Red Cell Distribution Width 16.5 % (11.5-14.5); White Blood Count 15.4 K/mm3 (4.5-10.0)
[2021-02-14] MEDS: HYDROCORTISONE SODIUM SUCCINATE 100 MG/2 ML VIAL IV PUSH (18:13)
[2021-02-14 18:50] LABS: Alanine Aminotransferase 13 U/L (4-35); Albumin Level 3.8 g/dL (3.5-5.1); Alkaline Phosphatase 113 U/L (38-126); Anion Gap 15 mmol/L (8-16); Aspartate Amino Transferase 28 U/L (14-36); Bilirubin,Total 0.6 mg/dL (0.2-1.3); Blood Urea Nitrogen 9 mg/dL (7-17); Calcium 11.1 mg/dL (8.4-10.2); Carbon Dioxide 23 mmol/L (22-30); Chloride 96 mmol/L (98-107); Estimated CRCL calculation 28 ml/min; Estimated Glomerular Filt Rate 26; Glucose 107 mg/dL (65-110); Lipase 343 U/L (23-300); Potassium 3.3 mmol/L (3.4-5.0); Sodium 134 mmol/L (137-145)
[2021-02-14 19:21] LABS: CRP 8.1 mg/dL (<1.0)
--- NOTE | 2021-02-14 19:21 | ED.BACK ---
HPI - Back Pain/Injury General Chief Complaint: Back Pain/Injury Stated Complaint: back, hip pain It hurts so bad Time Seen by Provider: 02/14/21 16:50 Source: patient and family Mode of arrival: EMS History of Present Illness HPI Narrative: 70-year-old female Here because of severe and worsening chronic pain in back and legs She has a history of renal cell carcinoma which is stage IV with metastases to the brain to the lungs and to bone at multiple sites She also had a left hip replacement, seems reasonable to assume that it might have been for a pathologic fracture, done over the summer and had to have their wound reexplored because of infection and it continues to drain She had earlier spine surgery as well All of her care for this is with Dr. Marshall at [facility] and [place] and we unfortunately do not have access to any good localizing studies for most of the mets for the most part She does not complain of a cough or a fever, she has not been vomiting She does not have new urinary symptoms states that she has been incontinent since that operation but she does not really recall whether she is referring to her hip operation or some previous abdominal surgery She does not recall having fallen or injuring herself She does not notice any numbness or any change in her bowel or bladder habits Her tells me she had a PET scan at [facility] earlier today, results unknown, and also that she just recently finished a course of antibiotics for c-diff Related Data Home Medications Medication Instructions Recorded Confirmed levothyroxine 100 mcg tablet 137 mcg PO DAILY tablet 04/28/19 01/21/21 Eliquis 2.5 mg PO BID 10/25/20 01/21/21 Fleet Enema 118 ml RECTAL ONCE 10/25/20 01/21/21 acetaminophen 650 mg PO Q6H PRN 10/25/20 01/21/21 bisacodyl 10 mg RECTAL DAILY PRN 10/25/20 01/21/21 bupropion HCl 75 mg PO BID 10/25/20 01/21/21 chlorthalidone 25 mg PO DAILY 10/25/20 01/21/21 cholecalciferol (vitamin D3) 125 mcg PO DAILY 10/25/20 01/21/21 gabapentin 600 mg PO HS 10/25/20 01/21/21 hydroxyzine HCl 50 mg PO TID PRN 10/25/20 01/21/21 methocarbamol 750 mg PO TID 10/25/20 01/21/21 pantoprazole 40 mg PO QAM 10/25/20 01/21/21 tramadol 25 mg PO Q6H PRN 10/25/20 01/21/21 atorvastatin 20 mg tablet 30 mg PO DAILY tablet 02/06/21 Allergies Allergy/AdvReac Type Severity Reaction Status Date / Time erythromycin base Allergy Unknown N/V, RASH Verified 02/14/21 17:20 Sulfa (Sulfonamide Allergy Unknown Unknown Verified 02/14/21 17:20 Antibiotics) codeine AdvReac Unknown N/V Verified 02/14/21 17:20 Zyrtec Allergy Unknown unk Uncoded 01/21/21 15:32 Review of Systems Review of Systems: All systems reviewed & are unremarkable except as noted in HPI and below Constitutional: Constitutional: Reports no additional constitutional complaints, Denies chills, Reports fatigue, Denies fever(s), Denies headache(s) and Reports weakness Eyes: Eyes: Reports no additional eye complaints and Denies change in vision ENT: Denies headache(s) and Denies sore throat Cardiovascular: Cardiovascular: Denies chest pain and Denies dyspnea Respiratory: Respiratory: Denies cough and Denies dyspnea Gastrointestinal: Gastrointestinal: Denies abdominal pain, Reports diarrhea and Denies vomiting Genitourinary: Genitourinary: Denies hematuria, Denies urinary frequency and Denies dysuria Musculoskeletal: Musculoskeletal: Reports back pain, Reports myalgias, Denies deformity, Reports arthralgias, Reports joint swelling and Denies numbness Integumentary/Breasts: Skin/Breast: Denies rash and Denies wounds Neurologic: Denies headache(s), Denies focal weakness and Denies numbness Psychiatric: Psychiatric: Reports no additional psychiatric complaints Endocrine: Endocrine: Reports no additional endocrine complaints Hematologic/Lymphatic: Hematologic/Lymphatic: Reports no additional hematologic/lymphatic complaints Allergic/Immunologic: Allergic/Immunologic: R
[2021-02-14 19:29] LABS: EDCOVIDSCREEN Negative (Negative)
[2021-02-14 21:09] LABS: Reflex Lactic Acid Yes or No Add Lactic
--- NOTE | 2021-02-14 21:20 | PC.NURSE ---
ERP and NUrse aware of BP -- fluids going and pt is in Trendelenburg position.
[2021-02-14 22:11] LABS: Add Urine Microscopic? YES; Appearance Urine Turbid (Clear); Bacteria Urine Trace /hpf; Bilirubin Urine Negative (Negative); Blood Urine 2+ (Negative); Color Urine Amber (Yellow); Glucose Urine UA 1+ mg/dL (Negative); Ketones Urine Trace mg/dL (Negative); Leukocyte Esterase Ur 2+ LEU/UL (Negative); Mucus Urine Heavy /lpf; Nitrate Urine Negative (Negative); Protein Urine 2+ mg/dL (Negative); RBC Urine >75 /hpf (0-2); Specific Grav Ur 1.023 (1.001-1.035); Squamous Epithelial Cell Urine Occasional /hpf (Few); Urobilinogen Urine Negative mg/dL (<2.0); WBC Clumps Urine Present /HPF; WBC Urine >75 /hpf
[2021-02-14] MEDS: PHENYLEPHRINE 1,000 MCG/10 ML SYRINGE 100 MCG IV PUSH (22:20)
[2021-02-14] MEDS: POTASSIUM CHLORIDE 20 MEQ PACKET (FOR LIQUID) 40 MEQ PO (22:21)
[2021-02-14 22:45] LABS: Lactic Acid 2.2 mmol/L (0.7-2.1)
[2021-02-15 00:48] VITALS: BP 92/60
[2021-02-15] MEDS: LACTATED RINGERS 1,000 ML 150 ML IV CONT (00:50)
--- NOTE | 2021-02-15 00:57 | PC.NURSE ---
MD aware b/p low per monitor recommendations to move b/p cuff and do manual blood pressures, additional fluids ordered and started.
[2021-02-15 01:55] VITALS: BP 90/54; PULSE 98; RESP 24; O2SAT 100
== END 2021-02-15 01:55 | disposition short-term general hospital (02) ==
PROVIDERS: Emergency Provider Emergency Medicine; PCP Family Medicine
DX: C64.2 Malignant neoplasm of left kidney, except renal pelvis (principal); N39.0 Urinary tract infection, site not specified; N17.9 Acute kidney failure, unspecified; G89.3 Neoplasm related pain (acute) (chronic); M89.8X9 Other specified disorders of bone, unspecified site; C78.02 Secondary malignant neoplasm of left lung; C78.01 Secondary malignant neoplasm of right lung; C79.31 Secondary malignant neoplasm of brain; C79.51 Secondary malignant neoplasm of bone; I48.0 Paroxysmal atrial fibrillation; F03.90 Unspecified dementia, unspecified severity, without behavioral disturbance, psychotic disturbance, mood disturbance, and anxiety; E03.9 Hypothyroidism, unspecified; D64.9 Anemia, unspecified; M19.90 Unspecified osteoarthritis, unspecified site; Z90.5 Acquired absence of kidney; Z92.3 Personal history of irradiation; Z79.899 Other long term (current) drug therapy; Z90.49 Acquired absence of other specified parts of digestive tract; Z96.642 Presence of left artificial hip joint; Z86.718 Personal history of other venous thrombosis and embolism; Z79.01 Long term (current) use of anticoagulants; Z20.822 Contact with and (suspected) exposure to COVID-19
CPT/HCPCS: 36415; 51701; 70450; 71045; 80053; 81001; 83605; 83690; 84145; 85025; 86140; 87086; 87426; 96361; 96365; 96366; 96367; 96375; 99285; A9270; C9803; J1720; J1956; J2370; J3370; J7120